=== PATIENT | male | born 2000 | race Caucasian/White ===

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

== ENCOUNTER 2019-02-10 07:33 | Emergency (ER) | payer OTHER ==
[~2019-02-10] VITALS: Ht 180.3 cm; Wt 100.0 kg
[~2019-02-10 07:33] MED LIST changes: +SERT-155; -SERT50TA29
--- NOTE | 2019-02-10 09:07 | REP ---
Skull series: Five views. History: Trauma. Findings: Five views of the calvarium demonstrate an intact bony calvarium. No skull fractures seen. No facial fractures noted. Impression: Negative radiographs of the calvarium.. Electronically Signed by Shmuel Xie MD 02/10/2019 08:59 A
[2019-02-10 09:26] VITALS: BP 122/71
[2019-02-10] MEDS ORDERED: PENICILLIN V POTASSIUM 500 MG TAB PO ONE (09:30)
[2019-02-10] MEDS ORDERED: ACETAMINOPHEN 325 MG TAB PO ONE (09:30)
[2019-02-10] MEDS ORDERED: PENI500T PO (09:32)
--- NOTE | 2019-02-10 11:43 | REP ---
Limited C-spine series: History: Fall into, but well sleep walking. Findings: AP lateral and open mouth odontoid views are presented. Alignment is normal. Vertebral body heights preserved. Prevertebral soft tissues are not widened. Disc spaces are maintained. No fracture or subluxation is seen. CT scanning is more sensitive to fracture and is the imaging modality of choice for trauma in the adult. Impression: Negative limited C-spine radiographs. Electronically Signed by Shmuel Xie MD 02/10/2019 08:35 A
== END 2019-02-10 09:39 | disposition home or self-care (01) ==
LOC: M ED 07:33
DX: S13.4XXA Sprain of ligaments of cervical spine, initial encounter (principal); S00.83XA Contusion of other part of head, initial encounter; W18.39XA Other fall on same level, initial encounter; Y92.018 Other place in single-family (private) house as the place of occurrence of the external cause; J02.0 Streptococcal pharyngitis; F84.0 Autistic disorder; F90.9 Attention-deficit hyperactivity disorder, unspecified type; Z79.899 Other long term (current) drug therapy

== ENCOUNTER 2019-07-14 09:24 | Emergency (ER) | payer OTHER ==
[~2019-07-14] VITALS: Ht 180.3 cm; Wt 110.1 kg
[~2019-07-14 09:24] MED LIST changes: +PENI500T PO; -SERT-155; +SERT50TA29
[2019-07-14] MEDS ORDERED: FLOV100A3 (09:31)
[2019-07-14] MEDS ORDERED: SERT50TA29 (09:31)
[2019-07-14] MEDS ORDERED: AMOX875T (09:31)
[2019-07-14 10:56] LABS: INFLUENZA A AMPLIFICATION POSITIVE (NEGATIVE); INFLUENZA B AMPLIFICATION NEGATIVE (NEGATIVE)
[2019-07-14] MEDS ORDERED: BENZ200C70 PO (11:08)
[2019-07-14] MEDS ORDERED: ONDA4TAB6 PO (11:08)
[2019-07-14 11:14] VITALS: BP 134/85
== END 2019-07-14 11:20 | disposition home or self-care (01) ==
LOC: M ED 09:24
DX: J10.1 Influenza due to other identified influenza virus with other respiratory manifestations (principal); Z79.899 Other long term (current) drug therapy

== ENCOUNTER → 2020-04-15 | Outpatient (CLI) | payer MEDICAID ==
[~2020-04-15] MED LIST changes: +AMOX875T; +BENZ200C70 PO; +FLOV100A3; +METHACHOLINE KIT (J7674) INH ONE; +ONDA4TAB6 PO
--- NOTE | 2020-04-15 12:35 | PFTRPT ---
Height: 71.00 Inches Weight: 254.00 Lbs BSA: 2.33 Diagnosis: R06.02 DATE: 04/15/2020 ORDERED BY: Mary Ellen Pal NP QUALITY: Study of excellent technical quality. PROCEDURE: Under protocol, methacholine was administered. At a dose of 0.25 mg or 1.375 CDUs, a 24% decline in FEV1 was noted. PC of 0.13 is significant. Flow rates did return to baseline post bronchodilator administration. IMPRESSION: Positive methacholine challenge study. MTDD
== END ==
LOC: M CARPUL 11:50
PROVIDERS: ATTEND Nurse Practitioner Adult Health
DX: R06.02 Shortness of breath (principal)
CPT/HCPCS: 94070; 95070; J7674

== ENCOUNTER 2020-06-17 15:01 | Emergency (ER) | payer MEDICARE, MEDICAID ==
[~2020-06-17] VITALS: Ht 180.3 cm; Wt 123.5 kg
[~2020-06-17 15:01] MED LIST changes: -METHACHOLINE KIT (J7674) INH ONE
--- OUTSIDE RECORDS SUMMARY | 2020-06-17 15:16 | CCD | Continuity of Care Document ---
Author Author Giovanny RLAPH [facility] Organization Unknown Address [address] [place] [address] Phone [phone] Care Team Providers Care Director Human Services Name Role Phone Igor Stuart M.D. AUTM [phone] [facility] Gastroenterology AUTM [phone] Ortiz Hurtado AUTM [phone] [facility] Physical Therapy AUTM [phone] Vikram Weldon MD AUTM [phone] [facility] Surgical Center AUTM [phone] [facility] Pulmonary Clinic AUTM [phone] [facility] Therapy Services AUTM [phone] Problems Active Problems Provider Date Attention deficit hyperactivity disorder, combined type Felecia Varela [facility] Onset: 09/14/2016 Autistic disorder Felecia Varela [facility] Onset: 09/14/2016 Altered mental status Felecia Varela [facility] Onset: 09/14/2016 Moderate recurrent major depression Bala Naylor PA-C Onse t: 10/18/2016 Recurrent major depressive episodes Brent Sewell LCSW Ons et: 08/27/2019 Social History Type Date Description Comments Sex Unknown Tobacco Use Start: Unknown Never Smoked Cigarettes Tobacco Use Start: Unknown Never Smoked Cigars Tobacco Use Start: Unknown Never Smoked A Pipe Tobacco Use Start: Unknown Never Used Smokeless Tobacco ETOH Use Never used alcohol Tobacco Use Start: Unknown Patient has never smoked Allergies, Adverse Reactions, Alerts Active Allergies Reaction Severity Comments Date NKDA 10/17/2016 NKFA 10/17/2016 Seasonal 2017 Eggs Nausea when eaten as an egg 019 Inactive Allergies NKEA 10/17/2016 Medications Active Medications SIG Qnty Indications Ordering Provide r Date Trazodone HCL 100mg Tablets 1 tab by mouth daily at bedtime 90tabs F33.1 Igor Stuart MD 04/27/2020 G47.00 Sertraline HCL 100mg Tablets 1 tab by mouth twice a day 90tabs F33.1 Igor Stuart MD 02/02/2020 F33.9 Imodium A-D 2mg Tablets 1 tab by mouth with each loose stool. do not take more then 6 tabs a day. 30tabs R 10.2 Igor Stuart MD 01/21/2020 Cyclobenzaprine HCL 10mg Tablets 1 by mouth three times a day as needed 20tabs M54.9 Igor negro MD 01/10/2019 Naproxen 500mg Tablets one tab twice a daily as needed. 30tabs M54.9 Igor Stuart MD 01/10/2019 Tylenol 325mg Capsules 2 tabs by mouth every 4 hours as needed Unknown 00 Albuterol Sulfate HFA 108(90Base) mcg/Act Aerosol Inhale 1 To 2 Puffs By Mouth Every 4 Hours as Needed For Wheezin g Unknown Metoprolol Succinate ER 25mg Tablets ER 24HR DR Weldon ( he states he is ordered to take twice a day ) Unknown Flovent HFA 110mcg/Act Aerosol Unknown History Medications Tessalon Perles 100mg Capsules 2 capsules by mouth three time per day as needed for cough 30caps Kerri Cortez MD 03/04/2020 - 04/22/2020 Ondansetron 4mg Tablets Dispers dissolve 1 tablet on the tongue up to three times daily as needed for nausea or vomiting 20tabs R11.2 Igor Stuart MD 01/21/2020 - 020 Immunizations CPT Code Status Date Vaccine Lot # [id number] Given 02/02/2020 Influenza (>= 6 Months) P.F. Vaccine [id number] Given 03/27/2019 Influenza (>= 6 Months) P.F. Vaccine [id number] [id number] Given 03/27/2018 Influenza (>= 6 Months) P.F. Vaccine [id number] Vital Signs Date Vital Result Comment 04/22/2020 3:07pm BP Systolic 118 mmHg BP Diastolic 80 mmHg Heart Rate 110 /min Body Temperature 96.4 F Respiratory Rate 16 /min O2 % BldC Oximetry 98 % Weight 261.00 lb Weight 118.390 kg Height 71 inches 5'11" BMI (Body Mass Index) 36.4 kg/m2 BSA (Body Surface Area) 2.36 m2 03/04/2020 1:50pm BP Systolic 118 mmHg BP Diastolic 82 mmHg Heart Rate 103 /min Body Temperature 97.9 F Respiratory Rate 16 /min O2 % BldC Oximetry 96 % Weight 254.25 lb Weight 115.328 kg Height 71 inches 5'11" BMI (Body Mass Index) 35.5 kg/m2 BSA (Body Surface Area) 2.33 m2 Results Test Acquired Date Facility Test Result H/L Range Note Urinalysis 01/21/2020 [facility] Urinalysis (SEE NOTE) 1, 2 Source Clean Catch Color yellow Normal: Yellow Clarity turbid Normal: Clear Spec [place] 1.030 1.001 - 1.030 pH 5 5 - 9 Glucose NORM Normal: Negative Bilirubin NEG Normal: Negative Ketone 5 Abnormal Normal: Negative Protein 15 Normal: Negative Nitrite NEG Normal: Negative Blood NEG Normal: Negative Leuk Est NEG Normal: Negative Urobilinogen NOR less than 1.0 mg/dL Microscopic See Below Epithelial FEW Normal: None Seen Amorph Sed 3+ Normal: None Seen Crystals See Below Calcium Ox Trace Normal: None Seen Cuture Urine 01/21/2020 [facility] Culture Urine (SEE NOTE) 3 CBC W/Automated Diff 01/21/2020 [facility] CBC W/Automated Diff (SEE NOTE) 4 WBC 12.5 10^3/uL High 4.2 - 11.0 RBC 6.45 10^6/uL High 4.50 - 6.30 Hemoglobin 15.9 g/dL 14.0 - 16.0 Hematocrit 50.4 % 41.0 - 51.0 MCV 78.1 fL Low 80.0 - 94.0 MCH 24.7 pg Low 27.0 - 34.0 MCHC 31.5 g/dL 31.0 - 36.0 RDW 13.3 % 11.5 - 14.8 Platelets 349 10^3/uL 150 - 450 MPV 10.6 fL High 7.4 - 10.4 Neut 59.8 % 37.0 - 80.0 Lymph 31.0 % 25.0 - 40.0 [place] 6.2 % 3.0 - 8.0 Eos 2.2 % 0.0 - 7.0 Baso 0.4 % 0.0 - 2.0 %Ig 0.4 % High 0.0 - 0.0 %NRBC 0.0 % 0.0 - 0.0 #Neut 7.49 10^3/uL High 2.00 - 6.90 #Lymph 3.88 10^3/uL High 0.60 - 3.40 #[place] 0.78 10^3/uL 0.00 - 0.90 #Eos 0.28 10^3/uL 0.00 - 0.70 #Baso 0.05 10^3/uL 0.00 - 0.20 #Ig 0.05 10^3/uL 0.00 - 0.10 #NRBC 0.00 10^3/uL 0.00 - 0.00 Manual Diff NOT INDICATED RBC Morph NOT INDICATED Comprehensive Metabolic Panel 01/21/2020 [facility] Comprehensive Metabo (SEE NOTE) 5 Sodium 140 mEq/L 134 - 153 Potassium 4.0 mEq/L 3.6 - 5.0 Chloride 100 mEq/L 98 - 107 Co2 26 mEq/L 22 - 30 Glucose 111 mg/dL High 65 - 110 BUN 8 mg/dL 7 - 21 Creatinine 0.9 mg/dL 0.7 - 1.5 BUN/Creat 9 8 - 27 Total Protein 7.8 g/dL 6.3 - 8.2 Albumin 4.5 g/dL 3.9 - 5.0 Globulin 3.3 GM/DL High 2.4 - 3.2 A/G Ratio 1.4 0.8 - 2.0 Calcium 9.9 mg/dL 8.4 - 10.2 Total Bili <0.7 mg/dL 0.2 - 1.3 Alkaline Phos 86 U/L 38 - 126 Sgot/Ast 20 U/L 5 - 40 SGPT/Alt 34 U/L 7 - 56 Anion Gap 14.0 mmol/L 8.0 - 16.0 Age 19 yrs Non-Aa GFR >60 mL/min Afr Amer GFR >60 mL/min 6 Cve Panel 01/21/2020 [facility] Cve Panel (SEE NOTE) 7 Cholesterol 166 mg/dL 131 - 200 Triglycerides 223 mg/dL High 35 - 160 HDL 42 mg/dL 29 - 86 LDL 96 mg/dL 65 - 175 Risk Factor 4.0 3.4 - 4.9 LDL/HDL 2.29 1.00 - 3.55 8 1 Is patient fasting? N {SOUR CE: Clean Catch~NURSE COLLECTED? N {SPECIMEN TYPE: CLEAN CATCH 2 URINALYSIS 3 _CULTURE URINE_ ^$[id number] ^^[id number] $$553997 ^^239279 $$086929 $$731354 $$125198 $$246980 $$000707 $$351665 $$539333 $$398806 $$569316 $$725494 $$491146 $$046484 $$333921 $$896296 $$821729 $$778136 $$720513 $$011775 $$501555 $$633519 $$744673 $$853427 $$338215 ^^538007 $$127397 $$927968 $$404036 -- Continued on next page -- Patient: DEENA Sullivan Order: [id number] Page 2 Culture: CULTURE URINE Status: Final -- Continued on next page -- Patient: DEENA Sullivan Order: [id number] Page 2 Culture: CULTURE URINE Status: Prelim -- Continued on next page -- Patient: DEENA Sullivan Order: [id number] Page 2 Culture: CULTURE URINE Status: Prelim $$[id number] $$[id number] REPORTED DATE/TIME: 01/25/2020 07:05 Culture: CULTURE URINE Status: Final Urine Culture,Comprehensive: P1 No growth in 36 - 48 hours. Previous result entered on 01/24/2020 14:25 ET No growth after 18-24 hours. Previous result entered on 01/24/2020 05:40 ET No growth after 18-24 hours. P1 Test performed by: [facility] #: [id number] [address] [place] [address] [id number] [facility] [address] Corn Cooker : Dion Perez MD NPI #: Colored Liquid Plastic Applier : 01/24/20.0651.XMT.SENT REF 01/24/20.2303.XMT.SENT REF 01/25/20.0853.XMT.SENT REF 4 COMPLETE BLOOD COUNT 5 COMPREHENSIVE METABOLIC PANE L 6 Male GFR Interprentation 20-49 yrs >60 mL/min Normal 50-59 yrs >56 mL/min Normal 60-69 yrs >49 mL/min Normal 70-79yrs >42 mL/min Normal 80 and above >35 mL/min Normal Female GFR Interpretation 20-39 yrs >60 mL/min Normal 40-49 yrs >58 mL/min Normal 50-59 yrs >51 mL/min Normal 60-69 yrs >45 mL/min Normal 70-79 yrs >39 mL/min Normal 80 and above >32 mL/min Normal 7 LIPID PANEL 8 CVE RISK CHOL/HDL LDL/HDL MEN: 1/2 AVERAGE 3.43 1.00 AVERAGE 4.97 3.55 2X AVERAGE 9.55 6.25 3X AVERAGE 23.99 7.99 WOMEN: 1/2 AVERAGE 3.27 1.47 AVERAGE 4.44 3.22 2X AVERAGE 7.05 5.03 3X AVERAGE 11.04 6.14 Procedures Date Code Description Status 12/08/2019 58790 Brief Emotional/Beha v Assessment W/ Scoring Doc Per Standard Inst Completed Medical Devices Description No Information Available Encounters Description No Information Available Assessments Date Code Description Provider 05/18/2020 F33.9 Major depressive disorder, recur rent, unspecified Franc Ralph, [facility] 04/22/2020 Z00.00 Encounter for genera l adult medical examination without abnormal findings Igor Stuart MD 04/22/2020 M41.9 Scoliosis, unspecified Igor Stuart MD 04/22/2020 M54.9 Dorsalgia, unspecified Igor Stuart MD 04/22/2020 F33.9 Major depressive disorder, recur rent, unspecified Igor Stuart MD 04/22/2020 G47.00 Insomnia, unspecified Igor Stuart MD 04/13/2020 F33.9 Major depressive disorder, recur rent, unspecified Franc Ralph, [facility] 04/13/2020 F84.0 Autistic disorder Franc Ralph, [facility] 03/04/2020 J20.9 Acute bronchitis, unspecified An cy MD Dana 02/11/2020 F33.9 Major depressive disorder, recur rent, unspecified Franc Ralph, [facility] 02/02/2020 F33.9 Major depressive disorder, recur rent, unspecified Igor Stuart MD 02/02/2020 K58.0 Irritable bowel syndrome with di arrhea Igor Stuart MD 01/21/2020 F33.9 Major depressive disorder, recur rent, unspecified Igor Stuart MD 01/21/2020 F84.0 Autistic disorder Igor negro MD 01/21/2020 R10.2 Pelvic and perineal pain Igor Stuart MD 01/21/2020 R11.2 Nausea with vomiting, unspecifie d Igor Stuart MD 01/06/2020 F33.9 Major depressive disorder, recur rent, unspecified Franc Ralph, [facility] 01/06/2020 F84.0 Autistic disorder Franc Ralph [facility] 12/08/2019 J45.909 Unspecified asthma, uncomplicate d Igor Stuart MD 12/08/2019 J30.9 Allergic rhinitis, unspecified H anibal Stuart MD 12/08/2019 F33.9 Major depressive disorder, recur rent, unspecified Igor Stuart MD 12/01/2019 F33.9 Major depressive disorder, recur rent, unspecified Franc Ralph, [facility] 12/01/2019 F84.0 Autistic disorder Franc Ralph, [facility] 11/18/2019 F33.9 Major depressive disorder, recur rent, unspecified Franc Ralph, [facility] 11/18/2019 F84.0 Autistic disorder VIKAS Mccollum Plan of Treatment Future Appointment(s):* 06/15/2020 3:00 pm - VIKAS Mccollum at [facility] * 08/02/2020 2:00 pm - Igor Stuart MD at [facility] 04/22/2020 - Igor Stuart MD* Z00.00 Encounter for general adult medical examination without abnormal findings* Comments:* Examination performed today was normal. Routine labs were ordered today. * M41.9 Scoliosis, unspecified* Comments:* He was told of scoliosis by . Ordered x-ray of the cervical, thoracic, and lumbar spine. If still the same, we will refer him to physical therapy. * M54.9 Dorsalgia, unspecified* Comments:* Treatment plan as above. * F33.9 Major depressive disorder, recurrent, unspecified* Comments:* Continue current medication. Continue to monitor. * G47.00 Insomnia, unspecified* Comments:* He is on Trazodone 50 mg at bedtime. Continue current therapy. Functional Status Description No Information Available Mental Status Description No Information Available Referrals Refer to Reason for Referral Status Appt Date [facility] Therapy Services 19 y/o male with chronic subhash k pain. Need PT. eval and treat. Sent [address] [place] [address] [phone] [facility] Gastroenterology 19 y/o M with hx of chronic abd pain, diarrhea, and nausea. Pls eval and treat. Patient Notified 06/16/[address] [place] [address] [phone] [facility] Pulmonary Clinic 19 y/o M, he claims he has a sthma managed by scientific editor. He is having worsening difficulty with breathing and asking to be seen by bail agent. Pls eval and treat. Closed 05/19/[address] [facility] [address] [phone]
--- OUTSIDE RECORDS SUMMARY | 2020-06-17 15:16 | CCD | Continuity of Care Document ---
Author Author Giovanny URENA DPM Organization Unknown Address [address] [place] [address] Phone [phone] Care Team Providers Care In School Suspension Coordinator Name Role Phone Igor Stuart M.D. AUTM [phone] [facility] Gastroenterology AUTM [phone] Ortiz Hurtado AUTM [phone] [facility] Physical Therapy AUTM [phone] Vikram Weldon MD AUTM [phone] [facility] AUTM [phone] [facility] Pulmonary Clinic AUTM [phone] [facility] Therapy Services AUTM [phone] [facility] Podiatry Clinic AUTM [phone] Problems Active Problems Provider Date Attention deficit hyperactivity disorder, combined type Felecia Varela [facility] Onset: 09/14/2016 Autistic disorder Felecia Varela [facility] Onset: 09/14/2016 Altered mental status Felecia Varela [facility] Onset: 09/14/2016 Moderate recurrent major depression LILLI Abebee t: 10/18/2016 Recurrent major depressive episodes Brent [...] Hours as Needed For Wheezin g Unknown Breo Ellipta 200-25mcg/Inh Aerosol Inhale 1 puff By Mouth Every Day Unknown History Medications Atenolol 25mg Tablets 1 by mouth every day 90tabs Igor Stuart MD 05/31/2020 - 05/31/2020 Tessalon Perles 100mg Capsules 2 capsules by mouth three time per day as needed for cough 30caps Kerri Cortez MD 03/04/2020 - 04/22/2020 Ondansetron 4mg Tablets Dispers dissolve 1 tablet on the tongue up to three times daily as needed for nausea or vomiting 20tabs R11.2 Igor Stuart MD 01/21/2020 - 020 Immunizations CPT Code Status Date Vaccine Lot # 58753 Given 02/02/2020 Influenza (>= 6 Months) P.F. Vaccine [id number] [id number] Given 03/27/2019 Influenza (>= 6 Months) P.F. Vaccine 25EG2 01965 Given 03/27/2018 Influenza (>= 6 Months) P.F. Vaccine [id number] Vital Signs Date Vital Result Comment 06/07/2020 1:14pm BP Systolic 136 mmHg BP Diastolic 81 mmHg Heart Rate 102 /min Body Temperature 97.8 F Respiratory Rate 16 /min O2 % BldC Oximetry 98 % Weight 260.00 lb Weight 117.936 kg Height 71 inches 5'11" BMI (Body Mass Index) 36.3 kg/m2 BSA (Body Surface Area) 2.36 m2 05/31/2020 1:04pm BP Systolic 138 mmHg didn't take h is B/P meds BP Diastolic 88 mmHg didn't take his B/P meds Heart Rate 104 /min Body Temperature 97.4 F Respiratory Rate 18 /min O2 % BldC Oximetry 97 % Weight 260.00 lb Weight 117.936 kg Height 71 inches 5'11" BMI (Body Mass Index) 36.3 kg/m2 BSA (Body Surface Area) 2.36 m2 Results Test Acquired Date Facility Test Result H/L Range Note Urinalysis 01/21/2020 [facility] Urinalysis (SEE NOTE) 1, 2 Source Clean Catch Color yellow Normal: Yellow Clarity turbid Normal: Clear Spec [place] 1.030 1.001 - 1.030 pH 5 5 [...] Trace Normal: None Seen Cuture Urine 01/21/2020 [facility] Culture Urine (SEE NOTE) 3 CBC W/Automated Diff 01/21/2020 [facility] CBC W/Automated Diff (SEE NOTE) 4 WBC [...] 80.0 Lymph 31.0 % 25.0 - 40.0 [place] 6.2 % 3.0 - 8.0 Eos 2.2 % 0.0 - 7.0 Baso 0.4 % 0.0 - 2.0 %Ig 0.4 % High 0.0 - 0.0 %NRBC 0.0 % 0.0 - 0.0 #Neut 7.49 10^3/uL High 2.00 - 6.90 #Lymph 3.88 10^3/uL High 0.60 - 3.40 #[place] 0.78 10^3/uL 0.00 - 0.90 #Eos 0.28 10^3/uL 0.00 - 0.70 #Baso 0.05 10^3/uL 0.00 - 0.20 #Ig 0.05 10^3/uL 0.00 - 0.10 #NRBC 0.00 10^3/uL 0.00 - 0.00 Manual Diff NOT INDICATED RBC Morph NOT INDICATED Comprehensive Metabolic Panel 01/21/2020 [facility] Comprehensive Metabo (SEE NOTE) 5 Sodium 140 [...] GFR >60 mL/min 6 Cve Panel 01/21/2020 [facility] Cve Panel (SEE NOTE) 7 Cholesterol 166 mg/dL 131 - 200 Triglycerides 223 mg/dL High 35 - 160 HDL 42 mg/dL 29 - 86 LDL 96 mg/dL 65 - 175 Risk Factor 4.0 3.4 - 4.9 LDL/HDL 2.29 1.00 - 3.55 8 1 Is patient fasting? N {SOUR CE: Clean Catch~NURSE COLLECTED? N {SPECIMEN TYPE: CLEAN CATCH 2 URINALYSIS 3 _CULTURE URINE_ ^$744781 ^^598005 $$182544 ^^345542 $$871144 $$731246 $$934492 $$912501 $$079999 $$409989 $$342968 $$682939 $$590585 $$238139 $$856744 $$406634 $$595007 $$216777 $$085760 $$234779 $$033763 $$456738 $$668049 $$873621 $$630434 $$819528 $$725791 ^^996834 $$508880 $$459587 $$757517 -- Continued on next page -- Patient: DEENA Sullivan Order: [id number] Page 2 Culture: CULTURE URINE Status: Final -- Continued on next page -- Patient: DEENA Sullivan Order: [id number] Page 2 Culture: CULTURE URINE Status: Prelim -- Continued on next page -- Patient: DEENA Sullivan Order: [id number] Page 2 Culture: CULTURE URINE Status: Prelim $$[id number] $$[id number] REPORTED DATE/TIME: 01/25/2020 07:05 Culture: CULTURE URINE Status: Final Urine Culture,Comprehensive: P1 No growth in 36 - 48 hours. Previous result entered on 01/24/2020 14:25 ET No growth after 18-24 hours. Previous result entered on 01/24/2020 05:40 ET No growth after 18-24 hours. P1 Test performed by: [facility] #: [id number] [address] [place] [id number] [facility] [address] Head Of Business Development : Dion Perez MD NPI #: [employer]unnel Kiln : 01/24/20.0651.XMT.SENT REF 01/24/20.2303.XMT.SENT REF 01/25/20.0853.XMT.SENT REF [...] 11.04 6.14 Procedures Date Code Description Status 06/14/2020 31935 Debridement Nails Any Method 1-5 Completed Medical Devices Description No Information Available Encounters Type Date Location Provider Dx Diagnosis Office Visit 06/14/2020 2:30p [facility] Devin Urena DPM L60.0 Ingrowing nail Assessments Date Code Description Provider 06/14/2020 L60.0 Ingrowing nail Devin Urena DPM 05/31/2020 I10 Essential (primary) hypertension Igor Stuart MD 05/31/2020 L60.0 Ingrowing nail Igor Stuatr MD 05/18/2020 F33.9 Major depressive disorder, recur rent, unspecified Franc Paul [facility] 04/22/2020 Z00.00 Encounter for genera l adult medical examination without abnormal findings Igor Stuart MD 04/22/2020 M41.9 Scoliosis, unspecified Igor Stuart MD 04/22/2020 M54.9 Dorsalgia, charlotteified Igor Stuart MD 04/22/2020 F33.9 Major depressive disorder, recur rent, unspecified Igor Stuart MD 04/22/2020 G47.00 Insomnia, unspecified Igor Stuart MD 04/13/2020 F33.9 Major depressive disorder, recur rent, unspecified Franc Paul [facility] 04/13/2020 F84.0 Autistic disorder Franc Paul [facility] 03/04/2020 J20.9 Acute bronchitis, unspecified An cy MD Dana 02/11/2020 F33.9 Major depressive disorder, recur rent, unspecified Franc Paul [facility] 02/02/2020 F33.9 Major depressive disorder, recur rent, [...] Major depressive disorder, recur rent, unspecified Franc Paul LM 01/06/2020 F84.0 Autistic disorder VIKAS Mccollum Plan of Treatment Future Appointment(s):* 06/15/2020 3:00 pm - VIKAS Mccollum at [facility] * 08/02/2020 2:00 pm - Igor Stuart MD at [facility] 06/14/2020 - Devin Urena DPM* L60.0 Ingrowing nail Functional Status Description No Information Available Mental Status Description No Information Available Referrals Refer to Reason for Referral Status Appt Date [facility] Podiatry Clinic 19 y/o M with hx of bilatera l ingrown toenails, pls eval and treat. Patient Notified 06/08/2020 3 [facility], [id number] [phone] [facility] Therapy Services 19 y/o male with chronic subhash k pain. Need PT. eval and treat. Sent [address] [place], [place] [id number] [phone] [facility] Gastroenterology 19 y/o M with hx of chronic abd pain, diarrhea, and nausea. Pls eval and treat. Patient Notified 06/16/2020 [address] [place] [address] [phone]
--- OUTSIDE RECORDS SUMMARY | 2020-06-17 15:16 | CCD ---
Continuity of Care Document (CCD) Created on: 05/31/2020 Giovanny Guardado External Reference #: [id number] : 2000 Sex: Male Author Author Giovanny STUART M.D. Organization Unknown Address [address] [place] [address] Phone [phone] Care Team Providers Care Charge Loader Name Role Phone Igor Stuart M.D. AUTM [phone] [facility] Gastroenterology AUTM [phone] Ortiz Hurtado AUTM [phone] [facility] Physical Therapy AUTM [phone] Vikram Weldon MD AUTM [phone] [facility] Surgical Center AUTM [phone] [facility] Pulmonary Clinic AUTM [phone] [facility] Therapy Services AUTM [phone] Problems Active Problems Provider Date Attention deficit hyperactivity disorder, combined type Felecia Varela [facility] Onset: 09/14/2016 Autistic disorder Felecia Varela [facility] Onset: 09/14/2016 Altered mental status Felecia Varela [facility] Onset: 09/14/2016 Moderate recurrent major depression Bala [...] CPT Code Status Date Vaccine Lot # 34055 Given 02/02/2020 Influenza (>= 6 Months) P.F. Vaccine [id number] Given 03/27/2019 Influenza (>= 6 Months) P.F. Vaccine [id number] [id number] Given 03/27/2018 Influenza (>= 6 Months) P.F. Vaccine [id number] Vital Signs Date Vital Result Comment 05/31/2020 1:04pm BP Systolic 138 mmHg didn't take h is B/P meds BP Diastolic 88 mmHg didn't take his B/P meds Heart Rate 104 /min Body Temperature 97.4 F Respiratory Rate 18 /min O2 % BldC Oximetry 97 % Weight 260.00 lb Weight 117.936 kg Height 71 inches 5'11" BMI (Body Mass Index) 36.3 kg/m2 BSA (Body Surface Area) 2.36 m2 04/22/2020 3:07pm BP Systolic 118 mmHg BP Diastolic 80 mmHg Heart Rate 110 /min Body Temperature 96.4 F Respiratory Rate 16 /min O2 % BldC Oximetry 98 % Weight 261.00 lb Weight 118.390 kg Height 71 inches 5'11" BMI (Body Mass Index) 36.4 kg/m2 BSA (Body Surface Area) 2.36 m2 Results Test Acquired Date Facility Test Result H/L Range Note Urinalysis 01/21/2020 [facility] Urinalysis (SEE NOTE) 1, 2 Source Clean Catch Color yellow Normal: Yellow Clarity turbid Normal: Clear Spec [place] 1.030 1.001 - 1.030 pH 5 5 [...] Trace Normal: None Seen Cuture Urine 01/21/2020 [facility] Culture Urine (SEE NOTE) 3 CBC W/Automated Diff 01/21/2020 [facility] CBC W/Automated Diff (SEE NOTE) 4 [...] 80.0 Lymph 31.0 % 25.0 - 40.0 [place] 6.2 % 3.0 - 8.0 Eos 2.2 % 0.0 - 7.0 Baso 0.4 % 0.0 - 2.0 %Ig 0.4 % High 0.0 - 0.0 %NRBC 0.0 % 0.0 - 0.0 #Neut 7.49 10^3/uL High 2.00 - 6.90 #Lymph 3.88 10^3/uL High 0.60 - 3.40 #[place] 0.78 10^3/uL 0.00 - 0.90 #Eos 0.28 10^3/uL 0.00 - 0.70 #Baso 0.05 10^3/uL 0.00 - 0.20 #Ig 0.05 10^3/uL 0.00 - 0.10 #NRBC 0.00 10^3/uL 0.00 - 0.00 Manual Diff NOT INDICATED RBC Morph NOT INDICATED Comprehensive Metabolic Panel 01/21/2020 [facility] Comprehensive Metabo (SEE NOTE) 5 [...] GFR >60 mL/min 6 Cve Panel 01/21/2020 [facility] Cve Panel (SEE NOTE) 7 Cholesterol 166 mg/dL 131 - 200 Triglycerides 223 mg/dL High 35 - 160 HDL 42 mg/dL 29 - 86 LDL 96 mg/dL 65 - 175 Risk Factor 4.0 3.4 - 4.9 LDL/HDL 2.29 1.00 - 3.55 8 1 Is patient fasting? N {SOUR CE: Clean Catch~NURSE COLLECTED? N {SPECIMEN TYPE: CLEAN CATCH 2 URINALYSIS 3 _CULTURE URINE_ ^$047781 ^^899139 $$764650 ^^896994 $$161956 $$047740 $$912980 $$149811 $$256406 $$220145 $$197569 $$783532 $$488522 $$153008 $$350821 $$354630 $$997418 $$316699 $$295088 $$105090 $$648350 $$789072 $$982792 $$852610 $$158315 $$557740 $$697037 ^^418107 $$619276 $$694600 $$907255 -- Continued on next page -- Patient: DEENA Sullivan Order: [id number] Page 2 Culture: CULTURE URINE Status: Final -- Continued on next page -- Patient: DEENA Sullivan Order: [id number] Page 2 Culture: CULTURE URINE Status: Prelim -- Continued on next page -- Patient: DEENA Sullivan Order: [id number] Page 2 Culture: CULTURE URINE Status: Prelim $$[id number] $$600760 REPORTED DATE/TIME: 01/25/2020 07:05 Culture: CULTURE URINE Status: Final Urine Culture,Comprehensive: P1 No growth in 36 - 48 hours. Previous result entered on 01/24/2020 14:25 ET No growth after 18-24 hours. Previous result entered on 01/24/2020 05:40 ET No growth after 18-24 hours. P1 Test performed by: [facility] #: [id number] [address] [place] [id number] [facility] [id number] Powder Guard : Dion Perez MD NPI #: Occupational Work Experience Teacher : 01/24/20.0651.XMT.SENT REF 01/24/20.2303.XMT.SENT REF 01/25/20.0853.XMT.SENT REF [...] 6.14 Procedures Date Code Description Status 12/08/2019 13407 Brief Emotional/Beha v Assessment W/ Scoring Doc Per Standard Inst Completed Medical Devices Description No Information Available Encounters Type Date Location Provider Dx Diagnosis Office Visit 05/31/2020 1:00p [facility] Igor Stuart MD I1 0 Essential (primary) hypertension L60.0 Ingrowing nail Assessments Date Code Description Provider 05/31/2020 I10 Essential (primary) hypertension Igor Stuart MD 05/31/2020 L60.0 Ingrowing nail Igor Stuart MD 05/18/2020 F33.9 Major depressive disorder, recur rent, unspecified Franc Paul [facility] 04/22/2020 Z00.00 Encounter for genera l adult medical examination without abnormal findings Igor Stuart MD 04/22/2020 M41.9 Scoliosis, unspecified Igor Stuart MD 04/22/2020 M54.9 Dorsalgia, charlotteified Igor Stuart MD 04/22/2020 F33.9 Major depressive disorder, recur rent, unspecified Igor Stuart MD 04/22/2020 G47.00 Insomnia, unspecified Igor Stuart MD 04/13/2020 F33.9 Major depressive disorder, recur rent, unspecified Franc Paul, [facility] 04/13/2020 F84.0 Autistic disorder Franc Paul [facility] 03/04/2020 J20.9 Acute bronchitis, unspecified An cy MD [place] 02/11/2020 F33.9 Major depressive disorder, recur rent, unspecified Franc Paul, [facility] 02/02/2020 F33.9 Major depressive disorder, recur [...] Major depressive disorder, recur rent, unspecified Franc Paul, [facility] 01/06/2020 F84.0 Autistic disorder Franc Paul [facility] 12/08/2019 J45.909 Unspecified asthma, uncomplicate d Igor Stuart MD 12/08/2019 J30.9 Allergic rhinitis, unspecified H ardik Christina Stuart MD 12/08/2019 F33.9 Major depressive disorder, recur rent, unspecified Igor Stuart MD 12/01/2019 F33.9 Major depressive disorder, recur rent, unspecified Franc Paul [facility] 12/01/2019 F84.0 Autistic disorder Franc Paul [facility] Plan of Treatment Future Appointment(s):* 06/07/2020 1:20 pm - Igor Stuart MD at [facility] * 06/15/2020 3:00 pm - VIKAS Mccollum at [facility] * 08/02/2020 2:00 pm - Igor Stuart MD at [facility] 05/31/2020 - Igor Stuart MD* I10 Essential (primary) hypertension * L60.0 Ingrowing nail * All * New Medication:* Atenolol 25 mg - 1 by mouth every day Functional Status Description No Information Available Mental Status Description No Information Available Referrals Refer to Reason for Referral Status Appt Date [facility] 19 y/o male with chronic subhash k pain. Need PT. eval and treat. Sent [address] [place] [address] [phone] [facility] Gastroenterology 19 y/o M with hx of chronic abd pain, diarrhea, and nausea. Pls eval and treat. Patient Notified 06/16/2020 [address] [place] [address] [phone] [facility] Pulmonary Clinic 19 y/o M, he claims he has a sthma managed by sack repairer. He is having worsening difficulty with breathing and asking to be seen by metal template maker. Pls eval and treat. Closed 05/19/[address] [facility] [address] [phone]
--- OUTSIDE RECORDS SUMMARY | 2020-06-17 15:16 | CCD | Continuity of Care Document ---
Author Author Giovanny RAMSAY ANP Organization Unknown Address [address] [address] Phone [phone] Care Team Providers Care Therapist Respiratory Name Role Phone Igor Stuart M.D. [facility] [phone] Problems Active Problems Provider Date Wheezing MARGI Casey Onset: 03/25/2020 Cough MARGI Casey Onset: 03/25/2020 Dyspnea MARGI Casey Onset: 03/25/2020 Social History Type Date Description Comments Sex Unknown ETOH Use Denies alcohol use Tobacco Use Start: Unknown Non Smoker Allergies, Adverse Reactions, Alerts Description No Known Drug Allergies Medications Active Medications SIG Qnty Indications Ordering Provide r Date Sertraline HCL 100mg Tablets 1 by mouth daily Unknown Trazodone HCL 50mg Tablets 1 by mouth daily Unknown Flovent HFA 44mcg/Act Aerosol 2 puff twice a day Unknown Albuterol Sulfate HFA 108(90Base) mcg/Act Aerosol inhale two puffs by mouth four times a day as needed Unknown Naproxen 500mg Tablets 1 tab by mouth every day Unknown Metoprolol Tartrate 25mg Tablets 1 tab by mouth twice a day (taking once daily) Unknown Immunizations Description No Information Available Vital Signs Date Vital Result Comment 03/25/2020 9:56am BP Systolic 122 mmHg BP Diastolic 80 mmHg Heart Rate 83 /min O2 % BldC Oximetry 95 % Height 71 inches 5'11" Weight 253.00 lb BMI (Body Mass Index) 35.3 kg/m2 [place] Body Weight 172 lb Weight 114.761 kg BSA (Body Surface Area) 2.33 m2 03/22/2011 10:49am BP Systolic 98 mmHg BP Diastolic 70 mmHg Weight 101.00 lb Weight 45.814 kg Weight Percentile 82nd Results Description No Information Available Procedures Date Code Description Status 04/05/2020 21587 Diffusing Capacity Completed 04/05/2020 81693 Plethysmography Determination Margo ng Volumes & Per Airway Resist Completed 04/05/2020 55296 Maximum Breathing Capacity, Maxi mal Voluntary Ventilation Completed 04/05/2020 64550 Bronchospasm Evaluation Complete d 03/25/2020 07679 Spirometry Completed Medical Devices Description No Information Available Encounters Type Date Location Provider Dx Diagnosis Office Visit 03/25/2020 10:00a [facility] Pulmonary/Thoracic MARGI Hanley R06.02 Shortness of breath R05 Cough R06.2 Wheezing Assessments Date Code Description Provider 04/05/2020 R06.02 Shortness of breath Pulmonary La b 03/25/2020 R06.02 Shortness of breath MARGI Casey 03/25/2020 R05 Cough MARGI Casey 03/25/2020 R06.2 Wheezing MARGI Casey Plan of Treatment 03/25/2020 - MARGI Casey* R06.02 Shortness of breath * R05 Cough * R06.2 Wheezing * * Comments:* 1. Secondary to shortness of breath, cough, wheeze, we will obtain full pulmonary function studies, a chest x-ray, and a methacholine bronchoprovocation study. * Follow up:* 1. Schedule pulmonary function testing with bronchodilator. 2. Schedule methacholine on a separate day and proceed if pulmonary function testing is normal. 3. Return to see me/doctor in follow up with pulmonary function testing,CXR, and methacholine challenge. Functional Status Description No Information Available Mental Status Description No Information Available Referrals Description No Information Available
--- OUTSIDE RECORDS SUMMARY | 2020-06-17 15:17 | CCD | Continuity of Care Document ---
Author Author Pulmonary Lab, Giovanny Nate Organization Unknown Address [address] [place] [address] Phone [phone] Care Team Providers Care Ladle Patcher Name Role Phone Igor Stuart M.D. [facility] [phone] Problems Active Problems Provider Date Wheezing Mary Ellen Kae, ANP Onset: 03/25/2020 Cough Mary Ellen Kae, ANP Onset: 03/25/2020 Dyspnea Mary Ellen Kae, ANP Onset: 03/25/2020 Social History Type Date Description [...] lb BMI (Body Mass Index) 35.3 kg/m2 [place] Body Weight 172 lb Weight 114.761 kg BSA (Body Surface Area) 2.33 m2 03/22/2011 10:49am BP Systolic 98 mmHg BP Diastolic 70 mmHg Weight 101.00 lb Weight 45.814 kg Weight Percentile 82nd Results Description No Information Available Procedures Date Code Description Status 03/25/2020 33875 Spirometry Completed Medical Devices Description No Information Available Encounters Type Date Location Provider Dx Diagnosis Office Visit 03/25/2020 10:00a [facility] Pulmonary/Thoracic MARGI Hanley R06.02 Shortness of breath R05 Cough R06.2 Wheezing Assessments Date Code Description Provider 03/25/2020 R06.02 Shortness of breath MARGI Casey 03/25/2020 R05 Cough MARGI Casey 03/25/2020 R06.2 Wheezing MARGI Casey Plan of Treatment Future Appointment(s):* 04/14/2020 11:30 am - MARGI Casey at [facility] Pulmonary/Thoracic * 04/06/2020 1:00 pm - [facility] Pulmonary Lab at [facility] PulmonaryThoracic 03/25/2020 - MARGI Casey* R06.02 Shortness of breath * R05 Cough * R06.2 Wheezing * * New Labs:* Methacholine Study, Scheduled: 04/06/20 * New Xrays:* Chest, 2 Views, PA & Lat, Ordered: 03/25/20 * Comments:* 1. Secondary to shortness of [...]
--- OUTSIDE RECORDS SUMMARY | 2020-06-17 15:17 | CCD | Continuity of Care Document ---
Author Author Giovanny STUART M.D. Organization Unknown Address [address] [place] [address] Phone [phone] Care Team Providers Care Quality Measurement Specialist Name Role Phone Igor Stuart M.D. AUTM [phone] [facility] Gastroenterology AUTM [phone] Ortiz Hurtado AUTM [phone] [facility] Physical Therapy AUTM [phone] Vikram Weldon MD AUTM [phone] [facility] Surgical Center AUTM [phone] [facility] Pulmonary Clinic AUTM [phone] Problems Active Problems Provider Date Attention deficit hyperactivity disorder, combined type Felecia Varela [facility] Onset: 09/14/2016 Autistic disorder Felecia Varela [facility] Onset: 09/14/2016 Altered mental status Felecia Varela [facility] Onset: 09/14/2016 Moderate recurrent major depression Bala Naylor PA-C Onse t: 10/18/2016 Recurrent major depressive episodes ROCIO SaraviaW Ons et: 08/27/2019 Social History Type Date [...] r Date Sertraline HCL 100mg Tablets 1 tab by [...] needed. 30tabs M54.9 Igor Stuart MD 01/10/2019 Trazodone HCL 50mg Tablets 1 tab by mouth daily at bedtime 90tabs F33.1 Igor Stuart MD 01/19/2017 G47.00 Tylenol 325mg Capsules 2 tabs by mouth [...] CPT Code Status Date Vaccine Lot # 25605 Given 02/02/2020 Influenza (>= 6 Months) P.F. Vaccine 9HT27 84970 Given 03/27/2019 Influenza (>= 6 Months) P.F. Vaccine 25EG2 45227 Given 03/27/2018 Influenza (>= 6 Months) P.F. [...] Date Facility Test Result H/L Range Note Xray 04/22/2020 [facility] [address] [place] [address] [phone] Spine Cerv Comp-5 Or More View <pending> Spine LS Complete <pending> Spine Thoracic <pending> Spine Scoliosis 1 View <pending> Urinalysis 01/21/2020 [facility] Urinalysis (SEE NOTE) 1, 2 Source Clean Catch Color yellow Normal: Yellow Clarity turbid Normal: Clear Spec [place] 1.030 1.001 - 1.030 pH 5 5 [...] Trace Normal: None Seen Cuture Urine 01/21/2020 [facility] Culture Urine (SEE NOTE) 3 CBC W/Automated Diff 01/21/2020 [facility] CBC W/Automated Diff (SEE NOTE) 4 WBC [...] 80.0 Lymph 31.0 % 25.0 - 40.0 [place] 6.2 % 3.0 - 8.0 Eos 2.2 % 0.0 - 7.0 Baso 0.4 % 0.0 - 2.0 %Ig 0.4 % High 0.0 - 0.0 %NRBC 0.0 % 0.0 - 0.0 #Neut 7.49 10^3/uL High 2.00 - 6.90 #Lymph 3.88 10^3/uL High 0.60 - 3.40 #[place] 0.78 10^3/uL 0.00 - 0.90 #Eos 0.28 10^3/uL 0.00 - 0.70 #Baso 0.05 10^3/uL 0.00 - 0.20 #Ig 0.05 10^3/uL 0.00 - 0.10 #NRBC 0.00 10^3/uL 0.00 - 0.00 Manual Diff NOT INDICATED RBC Morph NOT INDICATED Comprehensive Metabolic Panel 01/21/2020 [facility] Comprehensive Metabo (SEE NOTE) 5 Sodium [...] GFR >60 mL/min 6 Cve Panel 01/21/2020 [facility] Cve Panel (SEE NOTE) 7 Cholesterol 166 mg/dL 131 - 200 Triglycerides 223 mg/dL High 35 - 160 HDL 42 mg/dL 29 - 86 LDL 96 mg/dL 65 - 175 Risk Factor 4.0 3.4 - 4.9 LDL/HDL 2.29 1.00 - 3.55 8 [employer] [facility] 13 11/04/2019 [facility] eleazar Summary Report (Summary) FINAL PDF . 1 Is patient fasting? N {SOUR CE: Clean Catch~NURSE COLLECTED? N {SPECIMEN TYPE: CLEAN CATCH 2 URINALYSIS 3 _CULTURE URINE_ ^$202674 ^^475227 $$709316 ^^424672 $$177700 $$614550 $$015005 $$811010 $$761248 $$394925 $$401733 $$066597 $$849433 $$230426 $$514448 $$415840 $$651824 $$586440 $$498115 $$255385 $$401135 $$537212 $$191741 $$107990 $$129369 $$226738 $$559557 ^^469192 $$399618 $$761393 $$664718 -- Continued on next page -- Patient: DEENA Sullivan Order: [id number] Page 2 Culture: CULTURE URINE Status: Final -- Continued on next page -- Patient: DEENA Sullivan Order: [id number] Page 2 Culture: CULTURE URINE Status: Prelim -- Continued on next page -- Patient: DEENA Sullivan Order: [id number] Page 2 Culture: CULTURE URINE Status: Prelim $$[id number] $$986001 REPORTED DATE/TIME: 01/25/2020 07:05 Culture: CULTURE URINE Status: Final Urine Culture,Comprehensive: P1 No growth in 36 - 48 hours. Previous result entered on 01/24/2020 14:25 ET No growth after 18-24 hours. Previous result entered on 01/24/2020 05:40 ET No growth after 18-24 hours. P1 Test performed by: [facility] #: [id number] [address] [place] [address] Avenue [id number] [facility] [address] Plastics Fitter : Dion Perez MD NPI #: Cardiac Care Nurse : 01/24/20.0651.XMT.SENT REF 01/24/20.2303.XMT.SENT REF 01/25/20.0853.XMT.SENT REF [...] AVERAGE 7.05 5.03 3X AVERAGE 11.04 6.14 9 {DIAGNOSIS: F33.9~{MEDICATI ONS/DECLARED: CYCLOBENZAPRINE, NAPROXEN, SERTRALINE,~{PRESCRIPTION I 10 TOXASSURE SELECT 13 (MW) Test Result Flag Units NO DRUGS DETECTED. Test Result Flag Units Ref Range Creatinine 256 mg/dL >=20 Declared Medications: The flagging and interpretation on this report are based on the following declared medications. Unexpected results may arise from inaccuracies in the declared medications. Note: The testing scope of this panel does not include following reported medications: Acetaminophen (Tylenol) Cyclobenzaprine Naproxen Sertraline Trazodone For clinical consultation, please call . Procedures Date Code Description Status 12/08/2019 59509 Brief Emotional/Beha v Assessment W/ Scoring Doc Per Standard Inst Completed Medical Devices Description No Information Available Encounters Description No Information Available Assessments Date Code Description Provider 04/13/2020 F33.9 Major depressive disorder, recur rent, unspecified Franc Paul, [facility] 04/13/2020 F84.0 Autistic disorder Franc Paul [facility] 03/04/2020 J20.9 Acute bronchitis, unspecified An cy MD Dana 02/11/2020 F33.9 Major depressive disorder, recur rent, unspecified Franc Paul [facility] 02/02/2020 F33.9 Major depressive disorder, recur [...] depressive disorder, recur rent, unspecified Franc Paul [facility] 01/06/2020 F84.0 Autistic disorder Franc Paul [facility] 12/08/2019 J45.909 Unspecified asthma, uncomplicate d Igor Stuart MD 12/08/2019 J30.9 Allergic rhinitis, unspecified H ardik Christina Stuart MD 12/08/2019 F33.9 Major depressive disorder, recur rent, unspecified Igor Stuart MD 12/01/2019 F33.9 Major depressive disorder, recur rent, unspecified Franc Beverly, [facility] 12/01/2019 F84.0 Autistic disorder Franckeven Paul, [facility] 11/18/2019 F33.9 Major depressive disorder, recur rent, unspecified Franc Paul, [facility] 11/18/2019 F84.0 Autistic disorder Franc Paul, [facility] 11/05/2019 F33.9 Major depressive disorder, recur rent, unspecified Igor Stuart MD 11/05/2019 F84.0 Autistic disorder Igor negro MD 11/05/2019 I78.1 Nevus, non-neoplastic Igor Stuart MD 11/05/2019 G47.00 Insomnia, unspecified Igor Stuart MD 11/04/2019 F33.9 Major depressive disorder, recur rent, unspecified Franc Paul, [facility] 11/04/2019 F33.9 Major depressive disorder, recur rent, unspecified Mirian Barrientos, RN Plan of Treatment Future Appointment(s):* 05/18/2020 3:00 pm - VIKAS Mccollum at [facility] * 08/02/2020 2:00 pm - Igor Stuart MD at [facility] Functional Status Description No Information Available Mental Status Description No Information Available Referrals Refer to Reason for Referral Status Appt Date [facility] Gastroenterology 19 y/o M with hx of chronic abd pain, diarrhea, and nausea. Pls eval and treat. Sent [address] [place] [address] [phone] [facility] Pulmonary Clinic 19 y/o M, he claims he has a sthma managed by polymer materials consultant. He is having worsening difficulty with breathing and asking to be seen by master steam yacht. Pls eval and treat. Closed 05/19/[address] [place] [address] [id number] [phone] [facility] Surgical Center 18 y/o M with hx of nonneopl astic nevi on his head, referred for excision. Pls eval and treat. Patient Declined [address] [place] [address] [phone]
--- OUTSIDE RECORDS SUMMARY | 2020-06-17 15:17 | CCD | Continuity of Care Document ---
Author Author Giovanny RAMSAY ANP Organization Unknown Address [address] [address] Phone [phone] Care Team Providers Care Shank Boner Name Role Phone Igor Stuart M.D. [facility] [phone] Problems Active Problems Provider Date Wheezing MARGI [...] lb BMI (Body Mass Index) 35.3 kg/m2 [place] Body Weight 172 lb Weight 114.761 kg BSA (Body Surface Area) 2.33 m2 03/22/2011 10:49am BP Systolic 98 mmHg BP Diastolic 70 mmHg Weight 101.00 lb Weight 45.814 kg Weight Percentile 82nd Results Description No Information Available Procedures Date Code Description Status 04/05/2020 78428 Diffusing Capacity Completed 04/05/2020 19912 Plethysmography Determination Margo ng Volumes & Per Airway Resist Completed 04/05/2020 78823 Maximum Breathing Capacity, Maxi mal Voluntary Ventilation Completed 04/05/2020 89384 Bronchospasm Evaluation Complete d 03/25/2020 57972 Spirometry Completed Medical Devices Description No Information Available Encounters Type Date Location Provider Dx Diagnosis Office Visit 03/25/2020 10:00a [facility] Pulmonary/Thoracic Mary Ellen To phillipe ANP R06.02 Shortness of breath R05 Cough R06.2 Wheezing Assessments Date Code Description Provider 04/05/2020 R06.02 Shortness of breath Pulmonary La b 03/25/2020 R06.02 Shortness of breath MARGI Casey 03/25/2020 R05 Cough MARGI Casey 03/25/2020 R06.2 Wheezing MARGI Casey Plan of Treatment 03/25/2020 - MARGI Casey* R06.02 Shortness of breath * R05 Cough * R06.2 Wheezing * * New Xrays:* Chest, 2 Views, PA [...]
--- OUTSIDE RECORDS SUMMARY | 2020-06-17 15:17 | CCD | Continuity of Care Document ---
Author Author Giovanny RAMSAY ANP Organization Unknown Address [address] [address] Phone [phone] Care Team Providers Care Feed Inspection Supervisor Name Role Phone Igor Stuart M.D. [facility] [phone] Problems Active Problems Provider Date Wheezing MARGI [...] lb BMI (Body Mass Index) 35.3 kg/m2 [place] Body Weight 172 lb Weight 114.761 kg BSA (Body Surface Area) 2.33 m2 03/22/2011 10:49am BP Systolic 98 mmHg BP Diastolic 70 mmHg Weight 101.00 lb Weight 45.814 kg Weight Percentile 82nd Results Description No Information Available Procedures Date Code Description Status 04/05/2020 85956 Diffusing Capacity Completed 04/05/2020 47817 Plethysmography Determination Margo ng Volumes & Per Airway Resist Completed 04/05/2020 63253 Maximum Breathing Capacity, Maxi mal Voluntary Ventilation Completed 04/05/2020 01640 Bronchospasm Evaluation Complete d 03/25/2020 51333 Spirometry Completed Medical Devices Description No Information Available Encounters Type Date Location Provider Dx Diagnosis Office Visit 03/25/2020 10:00a [facility] Pulmonary/Thoracic MARGI Hanley R06.02 Shortness of breath R05 Cough R06.2 Wheezing Assessments Date Code Description Provider 04/05/2020 R06.02 Shortness of breath Pulmonary [place] b 03/25/2020 R06.02 Shortness of breath MARGI Casey 03/25/2020 R05 Cough MARGI Caesy 03/25/2020 R06.2 Wheezing MARGI Casey Plan of [...]
--- OUTSIDE RECORDS SUMMARY | 2020-06-17 15:18 | CCD ---
Author Author [facility] Organization [facility] Address Unknown Phone Unavailable Care Team Providers Care Field Technical Support Consultant Name Role Phone TARI MONROY Unavailable Unavailable MEDENT_510, [phone] Unavailable Unavailable Douglas Siu MD Unavailable Unavailable Douglas Siu MD Unavailable Unavailable Douglas Siu MD Unavailable Unavailable Douglas Siu MD Unavailable Unavailable Douglas Siu MD Unavailable Unavailable Douglas Siu MD Unavailable Unavailable Douglas Siu MD Unavailable Unavailable Douglas Siu MD Unavailable Unavailable Douglas Siu MD Unavailable Unavailable Douglas Siu MD Unavailable Unavailable Douglas Siu MD Unavailable Unavailable Douglas Siu MD Unavailable Unavailable Douglas Siu MD Unavailable Unavailable Douglas Siu MD Unavailable Unavailable Douglas Siu MD Unavailable Unavailable Douglas Siu MD Unavailable Unavailable Douglas Siu MD Unavailable Unavailable Douglas Siu MD Unavailable Unavailable Douglas Siu MD Unavailable Unavailable Douglas Siu MD Unavailable Unavailable Douglas Siu MD Unavailable Unavailable Douglas Siu MD Unavailable Unavailable Douglas Siu MD Unavailable Unavailable Douglas Siu MD Unavailable Unavailable Douglas Siu MD Unavailable Unavailable Douglas Siu MD Unavailable Unavailable Douglas Siu MD Unavailable Unavailable WAY, J GABRIEL PA Unavailable Unavailable WAY, J GABRIEL PA Unavailable Unavailable WAY, J GABRIEL PA Unavailable Unavailable WAY, J GABRIEL PA Unavailable Unavailable WAY, J GABRIEL PA Unavailable Unavailable WAY, J GABRIEL PA Unavailable Unavailable WAY, J GABRIEL PA Unavailable Unavailable WAY, J GABRIEL PA Unavailable Unavailable WAY, J GABRIEL PA Unavailable Unavailable WAY, J GABRIEL PA Unavailable Unavailable WAY, J GABRIEL PA Unavailable Unavailable WAY, J GABRIEL PA Unavailable Unavailable WAY, J GABRIEL PA Unavailable Unavailable WAY, J GABRIEL PA Unavailable Unavailable WAY, J GABRIEL PA Unavailable Unavailable WAY, J GABRIEL PA Unavailable Unavailable WAY, J GABRIEL PA Unavailable Unavailable WAY, J GABRIEL PA Unavailable Unavailable WAY, J GABRIEL PA Unavailable Unavailable WAY, J GABRIEL PA Unavailable Unavailable WAY, J GABRIEL PA Unavailable Unavailable WAY, J GABRIEL PA Unavailable Unavailable WAY, J GABRIEL PA Unavailable Unavailable WAY, J GABRIEL PA Unavailable Unavailable WAY, J GABRIEL PA Unavailable Unavailable WAY, J GABRIEL PA Unavailable Unavailable WAY, J GABRIEL PA Unavailable Unavailable FORNI, R ETHAN DPM Unavailable Unavailable FORNI, R ETHAN DPM Unavailable Unavailable FORNI, R ETHAN DPM Unavailable Unavailable FORNI, R ETHAN DPM Unavailable Unavailable FORNI, R ETHAN DPM Unavailable Unavailable FORNI, R ETHAN DPM Unavailable Unavailable FORNI, R ETHAN DPM Unavailable Unavailable WHITE, WESTLEY Unavailable Unavailable Devendra, L Mary Ellen FORGING ROLL OPERATOR Unavailable Unavailable Devendra, L Mary Ellen FORGING ROLL OPERATOR Unavailable Unavailable Devendra, L Mary Ellen FORGING ROLL OPERATOR Unavailable Unavailable Devendra, L Mary Ellen FORGING ROLL OPERATOR Unavailable Unavailable Devendra, L Mary Ellen FORGING ROLL OPERATOR Unavailable Unavailable Devendra, L Mary Ellen FORGING ROLL OPERATOR Unavailable Unavailable Devendra, L Mary Ellen FORGING ROLL OPERATOR Unavailable Unavailable Devendra, L Mary Ellen FORGING ROLL OPERATOR Unavailable Unavailable Devendra, L Mary Ellen FORGING ROLL OPERATOR Unavailable Unavailable Devendra, L Mary Ellen FORGING ROLL OPERATOR Unavailable Unavailable Devendra, L Mary Ellen FORGING ROLL OPERATOR Unavailable Unavailable Devendra, L Mary Ellen FORGING ROLL OPERATOR Unavailable Unavailable Devendra, L Mary Ellen FORGING ROLL OPERATOR Unavailable Unavailable Devendra, L Mary Ellen FORGING ROLL OPERATOR Unavailable Unavailable Devendra, L Mary Ellen FORGING ROLL OPERATOR Unavailable Unavailable Devendra, L Mary Ellen FORGING ROLL OPERATOR Unavailable Unavailable Devendra, L Mary Ellen FORGING ROLL OPERATOR Unavailable Unavailable Devendra, L Mary Ellen FORGING ROLL OPERATOR Unavailable Unavailable Devendra, L Mary Ellen FORGING ROLL OPERATOR Unavailable Unavailable Devendra, L Mary Ellen FORGING ROLL OPERATOR Unavailable Unavailable Devendra, L Mary Ellen FORGING ROLL OPERATOR Unavailable Unavailable Devendra, L Mary Ellen FORGING ROLL OPERATOR Unavailable Unavailable MOORE, MARICRUZ MD Unavailable Unavailable MOORE, MARICRUZ MD Unavailable Unavailable MOORE MARICRUZ MD Unavailable Unavailable MOORE MARICRUZ MD Unavailable Unavailable MOORE MARICRUZ MD Unavailable Unavailable MOORE MARICRUZ MD Unavailable Unavailable MOORE MARICRUZ MD Unavailable Unavailable MOORE MARICRUZ MD Unavailable Unavailable MOORE MARICRUZ MD Unavailable Unavailable MOORE MARICRUZ MD Unavailable Unavailable MOORE MARICRUZ MD Unavailable Unavailable MOORE MARICRUZ MD Unavailable Unavailable MOORE MARICRUZ MD Unavailable Unavailable MOORE MARICRUZ MD Unavailable Unavailable MOORE MARICRUZ MD Unavailable Unavailable MOORE MARICRUZ MD Unavailable Unavailable MOORE MARICRUZ MD Unavailable Unavailable MOORE MARICRUZ MD Unavailable Unavailable MOORE MARICRUZ MD Unavailable Unavailable MOORE MARICRUZ MD Unavailable Unavailable MOOREMARICRUZ MD Unavailable Unavailable MOOREMARICRUZ MD Unavailable Unavailable MOORE MARICRUZ MD Unavailable Unavailable MOORE MARICRUZ MD Unavailable Unavailable MOORE MARICRUZ MD Unavailable Unavailable MOORE MARICRUZ MD Unavailable Unavailable MOORE MARICRUZ MD Unavailable Unavailable MOORE MARICRUZ MD Unavailable Unavailable MOORE MARICRUZ MD Unavailable Unavailable MOORE MARICRUZ MD Unavailable Unavailable MOORE MARICRUZ MD Unavailable Unavailable MOORE MARICRUZ MD Unavailable Unavailable MOORE MARICRUZ MD Unavailable Unavailable MOORE MARICRUZ MD Unavailable Unavailable MOORE MARICRUZ MD Unavailable Unavailable MOORE MARICRUZ MD Unavailable Unavailable MOORE MARICRUZ MD Unavailable Unavailable MOORE MARICRUZ MD Unavailable Unavailable MOORE MARICRUZ MD Unavailable Unavailable MOORE MARICRUZ MD Unavailable Unavailable MOORE MARICRUZ MD Unavailable Unavailable MOORE MARICRUZ Unavailable Unavailable MOORE MARICRUZ MD Unavailable Unavailable MOORE MARICRUZ MD Unavailable Unavailable MOORE MARICRUZ MD Unavailable Unavailable MOORE MARICRUZ MD Unavailable Unavailable MOORE MARICRUZ MD Unavailable Unavailable MOORE MARICRUZ MD Unavailable Unavailable OMORE MARICRUZ MD Unavailable Unavailable MOORE MARICRUZ Unavailable Unavailable MOORE MARICRUZ MD Unavailable Unavailable MOORE MARICRUZ MD Unavailable Unavailable MOORE MARICRUZ MD Unavailable Unavailable MOORE MARICRUZ MD Unavailable Unavailable MOORE MARICRUZ MD Unavailable Unavailable MOORE MARICRUZ MD Unavailable Unavailable MOOREMARICRUZ MD Unavailable Unavailable MOOREMARICRUZ MD Unavailable Unavailable MOORE, MARICRUZ MD Unavailable Unavailable MOORE, MARICRUZ MD Unavailable Unavailable MOOREMARICRUZ FORD MD Unavailable Unavailable MOOREMARICRUZ FORD MD Unavailable Unavailable MOOREMARICRUZ FORD MD Unavailable Unavailable MOOREMARICRUZ FORD MD Unavailable Unavailable MOOREMARICRUZ MD Unavailable Unavailable MOOREMARICRUZ MD Unavailable Unavailable MOOREMARICRUZ MD Unavailable Unavailable MOOREMARICRUZ MD Unavailable Unavailable MOOREMARICRUZ MD Unavailable Unavailable Kunnumpurath, F Kerri MD Unavailable Unavailable Kunnumpurath, F Kerri MD Unavailable Unavailable Kunnumpurath, F Kerri MD Unavailable Unavailable Kunnumpurath, F Kerri MD Unavailable Unavailable Kunnumpurath, F Kerri MD Unavailable Unavailable Kunnumpurath, F Kerri MD Unavailable Unavailable Kunnumpurath, F Kerri MD Unavailable Unavailable Kunnumpurath, F Kerri MD Unavailable Unavailable Kunnumpurath, F Kerri MD Unavailable Unavailable Kunnumpurath, F Kerri MD Unavailable Unavailable Kunnumpurath, F Kerri MD Unavailable Unavailable Kunnumpurath, F Kerri MD Unavailable Unavailable Kunnumpurath, F Kerri MD Unavailable Unavailable Kunnumpurath, F Kerri MD Unavailable Unavailable Kunnumpurath, F Kerri MD Unavailable Unavailable Kunnumpurath, F Kerri MD Unavailable Unavailable Kunnumpurath, F Kerri MD Unavailable Unavailable Kunnumpurath, F Kerri MD Unavailable Unavailable Kunnumpurath, F Kerri MD Unavailable Unavailable Kunnumpurath, F Kerri MD Unavailable Unavailable Kunnumpurath, F Kerri MD Unavailable Unavailable Kunnumpurath, F Kerri MD Unavailable Unavailable Kunnumpurath, F Kerri MD Unavailable Unavailable Kunnumpurath, F Kerri MD Unavailable Unavailable Kunnumpurath, F Kerri MD Unavailable Unavailable Kunnumpurath, F Kerri MD Unavailable Unavailable Kunnumpurath, F Kerri MD Unavailable Unavailable Kunnumpurath, F Kerri MD Unavailable Unavailable Kunnumpurath, F Kerri MD Unavailable Unavailable Kunnumpurath, F Kerri MD Unavailable Unavailable Kunnumpurath, F Kerri MD Unavailable Unavailable Kunnumpurath, F Kerri MD Unavailable Unavailable Kunn[place]urath, F Kerri MD Unavailable Unavailable Kunnumpurath, F Kerri KIM Unavailable Unavailable Kunnumpurath, F Kerri KIM Unavailable Unavailable Kunnumpurath, F Kerri KIM Unavailable Unavailable Kunnumpurath, F Kerri KIM Unavailable Unavailable [place]unnumpurath, F Kerri KIM Unavailable Unavailable FORNI, R ETHAN DPM Unavailable Unavailable FORNI, R ETHAN DPM Unavailable Unavailable FORNI, R ETHAN DPM Unavailable Unavailable FORNI, R ETHAN DPM Unavailable Unavailable FORNI, R ETHAN DPM Unavailable Unavailable FORNI, R ETHAN DPM Unavailable Unavailable FORNI, R ETHAN DPM Unavailable Unavailable Devendra, L Mary Ellen FORGING ROLL OPERATOR Unavailable Unavailable Devendra, L Mary Ellen FORGING ROLL OPERATOR Unavailable Unavailable Devendra, L Mary Ellen FORGING ROLL OPERATOR Unavailable Unavailable Devendra, L Mary Ellen FORGING ROLL OPERATOR Unavailable Unavailable Devendra, L Mary Ellen FORGING ROLL OPERATOR Unavailable Unavailable Devendra, L Mary Ellen FORGING ROLL OPERATOR Unavailable Unavailable Devendra, L Mary Ellen FORGING ROLL OPERATOR Unavailable Unavailable Devendra, L Mary Ellen FORGING ROLL OPERATOR Unavailable Unavailable Devendra, L Mary Ellen FORGING ROLL OPERATOR Unavailable Unavailable Devendra, L Mary Ellen FORGING ROLL OPERATOR Unavailable Unavailable Devendra, L Mary Ellen FORGING ROLL OPERATOR Unavailable Unavailable Devendra, L Mary Ellen FORGING ROLL OPERATOR Unavailable Unavailable Devendra, L Mary Ellen FORGING ROLL OPERATOR Unavailable Unavailable Devendra, L Mary Ellen FORGING ROLL OPERATOR Unavailable Unavailable Devendra, L Mary Ellen FORGING ROLL OPERATOR Unavailable Unavailable Devendra, L Mary Ellen FORGING ROLL OPERATOR Unavailable Unavailable Devendra, L Mary Ellen FORGING ROLL OPERATOR Unavailable Unavailable Devendra, L Mary Ellen FORGING ROLL OPERATOR Unavailable Unavailable Devendra, L Mary Ellen FORGING ROLL OPERATOR Unavailable Unavailable Devendra, L Mary Ellen FORGING ROLL OPERATOR Unavailable Unavailable Devendra, L Mary Ellen FORGING ROLL OPERATOR Unavailable Unavailable Devendra, L Mary Ellen FORGING ROLL OPERATOR Unavailable Unavailable Re-disclosure Warning The records that you are about to access may contain information from federally-assisted alcohol or drug abuse programs. If such information is present, then the following federally mandated warning applies: This information has been disclosed to you from records protected by federal confidentiality rules (42 CFR part 2). The federal rules prohibit you from making any further disclosure of this information unless further disclosure is expressly permitted by the written consent of the person to whom it pertains or as otherwise permitted by 42 CFR part 2. A general authorization for the release of medical or other information is NOT sufficient for this purpose. The Federal rules restrict any use of the information to criminally investigate or prosecute any alcohol or drug abuse patient.The records that you are about to access may contain highly sensitive health information, the redisclosure of which is protected by Article 27-F of the [facility] Public Health law. If you continue you may have access to information: Regarding HIV / AIDS; Provided by facilities licensed or operated by the [facility] Office of Mental Health; or Provided by the [facility] Office for People With Developmental Disabilities. If such information is present, then the following [facility] mandated warning applies: This information has been disclosed to you from confidential records which are protected by state law. State law prohibits you from making any further disclosure of this information without the specific written consent of the person to whom it pertains, or as otherwise permitted by law. Any unauthorized further disclosure in violation of state law may result in a fine or fci sentence or both. A general authorization for the release of medical or other information is NOT sufficient authorization for further disc losure. Family History Family Member Name Family Member Gender Family Member Status Date o f Status Description Data Source(s) Unknown Male Problem [facility] ([facility] ) Unknown Male Problem [facility] ([facility]) Encounters Encounter Providers Location Date Indications Data Source(s ) Outpatient Attender: ETHAN ALEXIS DPM 2020 02:31:00 PM EST - 06/14/2020 02:31:00 PM [facility] Outpatient Attender: ETHAN ALEXIS DPM Family Practice 06/14/2020 0 1:30:00 PM EST [facility] ([facility]) Outpatient Attender: MARICRUZ MOORE MDConsultant: MARICRUZ Verdugo MD 06/07/2020 01:04:00 PM EST - 06/07/2020 01:04:00 PM [facility] Outpatient Attender: MARICRUZ MOORE MD 2020 12:58:00 PM EST - 05/31/2020 12:58:00 PM [facility] Outpatient Attender: MARICRUZ MOORE MD Family Practice 05/31/2020 1 2:00:00 PM EST MED[facility] ([facility]) Outpatient Attender: MARICRUZ MOORE MDConsultant: MARIRCUZ Verdugo MD 05/27/2020 11:54:24 AM [facility] Outpatient Attender: WESTLEY RALPHConsultant: MARICRUZ MOORE MD 05/18/2020 03:00:00 PM EST - 05/18/2020 03:00:00 PM [facility] Outpatient Attender: Mary Ellen Pal NPConsultant: MARICRUZ MOORE MD 04/22/2020 03:32:00 PM EST - 04/22/2020 04:32:00 PM [facility] Outpatient Attender: MARICRUZ MOORE MDConsultant: MARICRUZ Verdugo MD 04/22/2020 03:00:00 PM EST - 04/22/2020 03:00:00 PM [facility] Outpatient Attender: WESTLEY RALPHConsultant: MARICRUZ MOORE MD 04/13/2020 02:53:00 PM EST - 04/13/2020 02:53:00 PM [facility] Outpatient Attender: Mary Ellen Cadena/Víctor/Rosas/Chantel 03/25/2020 09:00:00 AM EST [facility] ([facility] ) Outpatient Attender: Kerri Cortez MDConsultant: MARICRUZ MOORE MD 03/04/2020 01:40:00 PM EDT - 03/04/2020 01:40:00 PM EDT [facility] Outpatient Attender: WESTLEY Espino rer: Shmuel Siu MDConsultant: MARICRUZ MOORE MD 02/11/2020 10:56:00 AM EDT - 02/11/2020 10:56:00 AM EDT [facility] Outpatient Attender: MARICRUZ MOORE MD Family Practice 02/02/2020 0 8:20:00 AM EDT [facility] ([facility]) Outpatient Attender: MARICRUZ MOORE MDConsultant: MARICRUZ Verdugo MD 02/02/2020 08:19:00 AM EDT - 02/02/2020 08:19:00 AM EDT [facility] Outpatient Attender: MARICRUZ MOORE MDConsultant: MARICRUZ Verdugo MD 01/22/2020 01:58:00 PM EDT - 01/22/2020 02:58:00 PM EDT [facility] Outpatient Attender: MARICRUZ MOORE MD Family Practice 01/21/2020 0 1:20:00 PM EDT [facility] ([facility]) Outpatient Attender: MARICRUZ MOORE MD 2019 01:19:00 PM EDT - 01/21/2020 01:19:00 PM EDT [facility] Outpatient Attender: WESTLEY Geronimoant: MARICRUZ MOORE MD 01/06/2020 03:48:00 PM EDT - 01/06/2020 03:48:00 PM EDT [facility] Outpatient Attender: MARICRUZ MOORE MD Family Practice 12/08/2019 0 2:00:00 PM EDT [facility] ([facility]) Outpatient Attender: MARICRUZ MOORE MD 2019 01:55:00 PM EDT - 12/08/2019 01:55:00 PM EDT [facility] Outpatient Attender: WESTLEY Geronimoant: MARICRUZ MOORE MD 12/01/2019 03:45:00 PM EDT - 12/01/2019 03:45:00 PM EDT [facility] Outpatient Attender: WESTLEY Hernandezer: Shmuel rojas MD 11/18/2019 03:07:00 PM EDT - 11/18/2019 03:07:00 PM EDT [facility] Outpatient Attender: MARICRUZ MOORE MD [facility] 11/05/2019 0 2:20:00 PM EDT [facility] ([facility]) Outpatient Attender: MARICRUZ MOORE MDConsultant: MARICRUZ Verdugo MD 11/05/2019 01:59:00 PM EDT - 11/05/2019 01:59:00 PM EDT [facility] Outpatient Attender: GABRIEL Bella corcoran: Shmuel Siu MDConsultant: MARICRUZ MOORE MD 11/04/2019 03:09:00 PM EDT - 11/04/2019 03:09:00 PM EDT [facility] Outpatient Attender: [id number] [facility]_510 Family Practice 11/04/2019 03:00:00 PM EDT [facility] Outpatient Attender: WESTLEY Hernandezer: Shmuel rojas MD 11/04/2019 02:56:00 PM EDT - 11/04/2019 02:56:00 PM EDT [facility] Outpatient Attender: WESTLEY Espino rer: Shmuel Siu MDConsultant: MARICRUZ MOORE MD 10/21/2019 04:02:00 PM EDT - 10/21/2019 04:02:00 PM EDT [facility] Outpatient Attender: WESTLEY Espino rer: Shmuel Siu MDConsultant: MARICRUZ MOORE MD 10/10/2019 01:58:00 PM EDT - 10/10/2019 01:58:00 PM EDT [facility] Outpatient Attender: WESTLEY Espino rer: Shmuel Siu MDConsultant: MARICRUZ MOORE MD 09/11/2019 01:07:00 PM EDT - 09/11/2019 01:07:00 PM EDT [facility] Outpatient Attender: TARI MONROYReferrer: Shmuel sosa MD 08/27/2019 11:15:00 AM EDT - 08/27/2019 11:15:00 AM EDT [facility] Outpatient Attender: MARICRUZ MOORE MDConsultant: MARICRUZ Verdugo MD 08/14/2019 11:51:00 AM EDT - 08/14/2019 11:51:00 AM EDT [facility] Office Visit Attender: MARICRUZ MOORE MD Family Practice 2019 10:00:00 AM EDT [facility] Outpatient Attender: MARICRUZ MOORE MD Family Practice 07/21/2019 1 0:20:00 AM EDT [facility] ([facility]) Outpatient Attender: MARICRUZ MOORE MD 2019 10:11:00 AM EDT - 07/21/2019 10:11:00 AM EDT [facility] Outpatient Attender: MARICRUZ MOORE MDConsultant: MARICRUZ Verdugo MD 05/15/2019 12:30:00 PM EST - 05/15/2019 12:30:00 PM EST [facility] Outpatient Attender: MARICRUZ MOORE MD Family Practice 05/15/2019 1 2:00:00 PM EST [facility] ([facility]) Outpatient Attender: MARICRUZ MOORE MDConsultant: MARICRUZ Verdugo MD 04/28/2019 12:53:00 PM EST - 04/28/2019 12:53:00 PM EST [facility] Outpatient Attender: MARICRUZ MOORE MD Family Practice 04/28/2019 1 2:00:00 PM EST [facility] ([facility]) Outpatient Attender: MARICRUZ MOORE MDConsultant: MARICRUZ Verdugo MD 03/27/2019 01:02:00 PM EST - 03/27/2019 01:02:00 PM [facility] Immunizations Vaccine Date Status Description Data Source(s) New in 2011. IIV4 02/02/2020 09:07:00 AM EDT completed [facility] ([facility]) Medications Medication Brand Name Start Date Product Form Dose Route Admi nistrative Instructions Pharmacy Instructions Status Indications Reaction Description Data Source(s) Atenolol 25 MG Oral Tablet Atenolol 05/31/2020 12:00:00 AM EST ORAL completed [facility] ([facility]) Trazodone Hydrochloride 100 MG Oral Tablet Trazodone HCL 04/27/2020 12:00:00 AM EST ORAL active [facility] ([facility]) benzonatate 100 MG Oral Capsule [Tessalon Perles] Tessalon P erles 03/04/2020 12:00:00 AM EDT ORAL completed [facility] ([facility]) Sertraline 100 MG Oral Tablet Sertraline HCL 02/02/2020 12:00:00 AM E DT ORAL active [facility] ([facility]) Ondansetron 4 MG Disintegrating Oral Tablet Ondansetron 01/21/2020 12:00:00 AM EDT completed [facility] ([facility]) Loperamide Hydrochloride 2 MG Oral Tablet [Imodium] Imodium A-D 01/21/2020 12:00:00 AM EDT ORAL active M EDENT ([facility]) Ondansetron 4 MG Oral Tablet Ondansetron HCL 07/21/2019 12:00:00 AM E DT ORAL completed [facility] ([facility]) Azithromycin 250 MG Oral Tablet Azithromycin 02/18/2019 12:00:00 AM EDT completed [facility] ([facility]) Insurance Providers Payer name Policy type / Coverage type Policy ID Covered libertarian ID Covered libertarian's relationship to moreno Policy Moreno Plan Information [place] COM[place] [id number] 18 [id number] [place] COMP [place] [id number] 18 [id number] MEDICAID [place] [id number] UN COMMUNITY PLAN XIX [place] [id number] 18 [id number] [facility] COMMUNTY PLAN [id number] [facility] COMMUNITY [facility] [id number] 18 [id number] UNHC CP DUAL COMP - RECURRING [id number] 18 [id number] [place] [id number] 18 [id number] [place]LLCARE[place]CL[place]IC [place] [id number] 18 [id number] MEDICAID [id number] WELLCARE -O/P [id number] 18 [id number] MEDICAID -O/P [id number] WELLCARE [id number] SP [id number] [place] [id number] SP [id number] WELLCARE [place]CL[place] [id number] 18 [id number] MEDICAID -PHYSICIAN [id number] WELLCARE [id number] [place]ARE [place] [id number] 18 [id number] MEDICARE PART A -CLINIC [id number] MEDICAID -CLINIC [id number] MEDICARE PART A [id number] 18 [id number] MEDICAID BH [id number] [place] [id number] 18 [id number] MEDICAID -CLINIC [id number] MEDICARE PART A -O/P [id number] 18 [id number] [place] XIX [place] [id number] 18 [id number] [place] [id number] 18 [id number] UNAVAILABLE UNAVAILA BLE PHAN [id number] SP [id number] [place] [id number] S [id number] [place] XIX MAN [id number] 18 [id number] Medicaid Commercial [id number] Self [id number] [place] [id number] Self [id number] Ph[employer] Care Commercial [id number] Self [id number] [place] [id number] Self [id number] [place] [id number] 18 [id number] [place] Care Commercial [id number] Self [id number] [place] [id number] Self [id number] [place] [id number] Self [id number] [place] Care Commercial [id number] Self [id number] MEDICAID [id number] [place]/CHP/FHP Commercial [id number] Self [id number] Ph[place] Medicaid/CHP/FHP Commercial [id number] Self [id number] MEDICAID [id number] [place] Medicaid/CHP/FHP Commercial [id number] Self [id number] Phan Medicaid/CHP/FHP Commercial [id number] Self [id number] [place]P/FHP Commercial [id number] Self [id number] Phan Care Commercial [id number] Self [id number] Ph[place] Care [place] [id number] Self [id number] [place] ([facility]) Commercial [id number] Self [id number] [facility] [place] [place]([facility]) Medicaid [id number] Self [id number] [place] ([facility]) Commercial [id number] Self [id number] MEDICAID M [id number] Phan ([facility]) Commercial [id number] Self [id number] [employer] ([facility]) Commercial [id number] Self [id number] MEDICAID - CLINIC [id number] Problems, Conditions, and Diagnoses Code Display Name Description Problem Type Effective Dates Data Source(s) 924588367 Dyspnea Dyspnea Problem 03/25/2020 12:00:00 AM ES T [facility] ([facility], ) [id number] Cough Cough Problem 03/25/2020 12:00:00 AM ES T [facility] ([facility], ) [id number] Wheezing Wheezing Problem 03/25/2020 12:00:00 AM ES T [facility] ([facility], ) [id number] Recurrent major depressive episodes Recu rrent major depressive episodes Problem 08/27/2019 12:00:00 AM EDT [facility] ([facility]) [id number] Encounter for examination of blood press ure without abnormal findings Encounter for examination of blood pressure without abnormal findings Diagnosis 06/07/2020 01:04:00 PM [facility] L600 Ingrowing nail Ingrowing nail Diagnosis 05/31/2020 12:58: 00 PM [facility] I10 Essential (primary) hypertension Essential (primary) h ypertension Diagnosis 05/31/2020 12:58:00 PM [facility] M549 Dorsalgia, unspecified Dorsalgia, unspecified Diagnosi s 05/28/2020 10:20:00 AM [facility] F339 Major depressive disorder, recurrent, un specified Major depressive disorder, recurrent, unspecified Diagnosis 05/18/2020 03:00:00 PM [facility] R0602 Shortness of breath Shortness of breath Diagnosis 1 06/23/2019 03:32:00 PM [facility] G4700 Insomnia, unspecified Insomnia, unspecified Diagnosis 04/22/2020 03:00:00 PM [facility] M419 Scoliosis, unspecified Scoliosis, unspecified Diagnosi s 04/22/2020 03:00:00 PM [facility] Z0000 Encounter for general adult medical exam ination without abnormal findings Encounter for general adult medical examination without abnormal findings Diagnosis 04/22/2020 03:00:00 PM [facility] F840 Autistic disorder Autistic disorder Diagnosis 04/13/2020 02:53:00 PM [facility] J209 Acute bronchitis, unspecified Acute bronchitis, unspec ified Diagnosis 03/04/2020 01:40:00 PM [facility] Z23 Encounter for immunization Encounter for immunization Diagnosis 02/02/2020 08:19:00 AM [facility] K580 Irritable bowel syndrome with diarrhea I rritable bowel syndrome with diarrhea Diagnosis 02/02/2020 08:19:00 AM [facility] R112 Nausea with vomiting, unspecified Nausea with vo miting, unspecified Diagnosis 01/21/2020 01:19:00 PM EDT [facility] R102 Pelvic and perineal pain Pelvic and perineal pain Diag nosis 01/21/2020 01:19:00 PM EDT [facility] J309 Allergic rhinitis, unspecified Allergic rhinitis, unsp ecified Diagnosis 12/08/2019 01:55:00 PM EDT [facility] [id number] Unspecified asthma, uncomplicated Unspecified as thma, uncomplicated Diagnosis 12/08/2019 01:55:00 PM EDT [facility] I781 Nevus, non-neoplastic Nevus, non-neoplastic Diagnosis 11/05/2019 01:59:00 PM EDT [facility] N489 Disorder of penis, unspecified Disorder of penis, unsp ecified Diagnosis 08/14/2019 11:51:00 AM EDT [facility] K2900 Acute gastritis without bleeding Acute gastritis without bleeding Diagnosis 07/21/2019 10:11:00 AM EDT [facility] R05 Cough Cough Diagnosis 07/21/2019 10:11:00 AM ED T [facility] F331 Major depressive disorder, recurrent, mo derate Major depressive disorder, recurrent, moderate Diagnosis 07/21/2019 10:11:00 AM T [facility] Surgeries/Procedures Procedure Description Date Indications Data Source(s) Debridement Nails Any Method 1-5 06/14/2020 12:00:00 A M EST [facility] ([facility]) Bronchospasm Evaluation 04/05/2020 12:00:00 AM EST [facility] ([facility], ) Maximum Breathing Capacity, Maximal Voluntary Ventilation 04/05/2020 12:00:00 AM EST [facility] Plethysmography Determination Lung Volumes & Per Airway Resi st 04/05/2020 12:00:00 AM EST [facility] ([facility] DIFFUSING CAPACITY 04/05/2020 12:00:00 AM EST [facility] ([facility], ) Spirometry 03/25/2020 12:00:00 AM EST M [facility] ([facility], ) Brief Emotional/Behav Assessment W/ Scoring Doc Per Standard Inst 12/08/2019 12:00:00 AM EDT [facility] ([facility]) Psychiatric Diagnostic Evaluation 08/27/2019 12:00:00 AM EDT [facility] ([facility]) Electrocardiogram Complete 05/15/2019 12:00:00 AM EST [facility] ([facility]) Results ID Date Data Source [id number] 04/23/2020 03:11:00 PM EST [facility] [address] [place] [address] PHONE: [phone] FAX: [phone] Name .................. : DEENA Sullivan Acct Number.................. : [id number] ROOM. ................. : Number ................... : [id number] Stay type ............. : O/P Discharge Date......... ... : 04/22/20 Admit Date ......... : 04/22/20 Admit Phys .................... : DEVENDRA MOCTEZUMA Date of ....... : 2000 Family Phys ................... : MOORE HARD Phone .................. : [phone] Age ................................ : 19 Film# .................. .:[id number] Sex ................................. : M Unsigned transcriptions are preliminary reports and do not represent a medical or legal document CHEST 2 VIEWS [id number] COMPLETE:04/22/20 19:00 [facility] [address] (REASON FOR CHEST: SHORTNESS OF BREATH CHEST X-RAY: PA AND LATERAL VIEWS HISTORY: Shortness of breath. FINDINGS: The cardiac and mediastinal silhouettes appear normal and the lungs are clear. The bones and soft tissues are normal. The upper abdomen is unremarkable. IMPRESSION: No acute disease identifiable. Electronically Reviewed and Signed By Dariusz Torres MD , 04/13 06/02 15:11, TDS Transcribe Initials: AASHISH , Transcribe Date: 04/23/20 00:51, Dictation Date: Copy for: DEVENDRA MOCTEZUMA via fax Copy for: [address] [place] [address] REC Page 1 of 1 Name Value Range Interpretation Code Description Data Saskia rce(s) Supporting Document(s) ID Date Data Source [id number] 04/23/2020 03:11:00 [place] [address] PHONE: [phone] FAX: [phone] Name .................. : DEENA Sullivan Acct Number.................. : [id number] ROOM. ................. : Number ................... : [id number] Stay type ............. : CLINIC Discharge Date......... ... : 04/22/20 Admit Date ......... : 04/22/20 Admit Phys .................... : MOORE HARD Date of ....... : 2000 Family Phys ................... : MOORE HARD Phone .................. : [phone] Age ................................ : 19 Film# .................. .:[id number] Sex ................................. : M Unsigned transcriptions are preliminary reports and do not represent a medical or legal document SPINE SCOLIOSIS 1 VIEW [id number] COMPLETE:04/22/20 19:00 [facility] [address] (SPINE PROC REASON: SCOLIOSIS SCOLIOSIS SERIES: FINDINGS: Frontal images of the thoracic and lumbar spine were obtained. No scoliosis is seen. No fracture or suspicious osseous lesion is identified. IMPRESSION: Unremarkable scoliosis series. Electronically Reviewed and Signed By Dariusz Torres MD , 04/23/20 15:11, TDS Transcribe Initials: DZ , Transcribe Date: 04/23/20 00:40, Dictation Date: Page 1 of 1 Name Value Range Interpretation Code Description Data Saskia rce(s) Supporting Document(s) ID Date Data Source [id number] 04/23/2020 03:10:00 [place] [address] PHONE: [phone] FAX: [phone] Name .................. : [facility] [id number] ROOM. ................. : Number ................... : [id number] Stay type ............. : CLINIC Discharge Date......... ... : 04/22/20 Admit Date ......... : 04/22/20 Admit Phys .................... : MOORE HARD Date of ....... : 2000 Family Phys ................... : TERESA HARD Phone ... ............... : [phone] Age ................................ : 19 Film# .................. .:[id number] Sex ................................. : M Unsigned t ranscriptions are preliminary reports and do not represent a medical or legal document SPINE LS COMPLETE [id number] COMPLETE:04/22/20 19:00 [facility] [address] (SPINE PROC REASON: PAIN LUMBAR SPINE SERIES: COMPARISON: 01/10/19 FINDINGS: Routine views show normal alignment. The vertebral bodies and disc spaces are well maintained. The pedicles and posterior elements are intact. No pars defects are seen. The SI joints are unremarkable. IMPRESSION: Negative lumbar spine. Electronically Reviewed and Signed By Henrique Torres MD , 04/23/20 15:11, TDS Transcribe Initials: DZ , Transcribe Date: 04/23/20 00:39, Dictation Date: Page 1 of 1 Name Value Range Interpretation Code Description Data Saskia rce(s) Supporting Document(s) ID Date Data Source [id number] 04/22/2020 03:20:00 PM EST [facility] ([facility]) Name Value Range Interpretation Code Description Data Saskia rce(s) Supporting Document(s) Spine Cerv Comp-5 Or More View Laboratory test result [facility] ([facility]) Spine LS Complete Laboratory test result [facility] ([facility]) Spine Thoracic Laboratory test result [facility] ([facility]) Spine Scoliosis 1 View Laboratory test result [facility] ([facility]) ID Date Data Source [id number] 02/25/2020 12:00:00 AM EDT [facility] Name Value Range Interpretation Code Description Data Saskia rce(s) Supporting Document(s) SARS coronavirus 2 RNA [Presence] in Res piratory specimen by CORNEL with probe detection [facility] This lab was ordered by Gael Prieto and reported by [facility]. ID Date Data Source [id number] 01/23/2020 02:41:00 PM EDT [facility] [address] [place] [address] PHONE: [phone] FAX: [phone] Name .................. : DEENA Sullivan Acct Number.................. : [id number] ROOM. ................. : Number ................... : [id number] Stay type ............. : O/P Discharge Date......... ... : 01/22/20 Admit Date ......... : 01/22/20 Admit Phys .................... : [employer] Date of ....... : 2000 Family Phys ................... : Wiki-PR HARD Phone .................. : [phone] Age ................................ : 19 Film# .................. .:[id number] Sex ................................. : M Unsigned transcriptions are preliminary reports and do not represent a medical or legal document CT ABD & PELV W/O ORAL W/O IV [id number] COMPLETE:01/22/20 15:32 BEM [id number] (REASON FOR ABDOMEN: PELVIC AND PERINEAL PAIN, DIARRHEA,NAUSEA,VOMITTIN CT SCAN OF THE ABDOMEN AND PELVIS WITHOUT CONTRAST: INDICATION: Pelvic and perineal pain, diarrhea, nausea and vomiting. FINDINGS: The lung bases show no distinct nodule or infiltrate. No pleural or pericardial effusion is identified. The liver, gallbladder, spleen, adrenal glands and bilateral kidneys appear unremarkable. No hydronephrosis or nephrolithiasis is identified. The enteric structure are limited in evaluation due to motion artifact. Nonspecific scattered lymph nodes are identified in the right lower quadrant which are not enlarged and may represent underlying mesenteric adenitis. The appendix is not discretely visualized. No secondary signs of appendicitis are identified. Moderate stool is identified in the rectum and sigmoid. No free fluid is identified in the pelvis. The osseous structures appear unremarkable. IMPRESSION: Nonspecific, nonenlarged lymph nodes in the right lower quadrant raising suspicion for possible mesenteric adenitis. Examination is limited by motion artifact. No secondary signs of appendicitis. While performing the above CT examination, radiation dose reduction was accomplished utilizing automated exposure control, adjusting of the mA and kV based on the patient's body size and/or the use of imperative reconstructive techniques. CT dose: 864.2 mGycm Examination dictated by ELOY Charles. Examination was reviewed with Florentino Torres MD, radiologist at the time of this dictation. Electronically Reviewed and Signed By Page 1 of 2 [place] [address] PHONE: [phone] FAX: [phone] Name .................. : KUMARXochitl NOHEMY Sullivan Acct Number.................. : [id number] ROOM. ................. : MR Number ................... : [id number] Stay type ............. : O/P Discharge Date......... ... : 01/22/20 Admit Date ......... : 01/22/20 Admit Phys .................... : MOORE HARD Date of ....... : 2000 Family Phys ................... : MOORE HARD Phone .................. : [phone] Age ................................ : 19 Film# .................. .:[id number] Sex ................................. : M Unsigned transcriptions are preliminary reports and do not represent a medical or legal document CT ABD & PELV W/O ORAL W/O IV [id number] COMPLETE:01/22/20 15:32 BEM [id number] (REASON FOR ABDOMEN: PELVIC AND PERINEAL PAIN, DIARRHEA,NAUSEA,VOMITTIN Dariusz Torres MD , 01/23/20 14:41, TDS Transcribe Initials: DZ , Transcribe Date: 01/22/20 22:40, Dictation Date: Copy for: 710 MED REC Page 2 of 2 Name Value Range Interpretation Code Description Data [facility] Supporting Document(s) ID Date Data Source [id number] 01/21/2020 01:47:00 PM EDT [facility] ([facility]) Name Value Range Interpretation Code Description Data [facility] rce(s) Supporting Document(s) Cve Panel Laboratory test result [facility] ([facility]) Is patient fasting? N {SOURCE: Clean C atch~NURSE COLLECTED? N {SPECIMEN TYPE: CLEAN CATCH HDL 42 mg/dL 29- [facility] ([facility]) Is patient fasting? N {SOURCE: Clean C atch~NURSE COLLECTED? N {SPECIMEN TYPE: CLEAN CATCH Triglycerides 223 mg/dL 35-160 Above high normal [facility] NT ([facility]) Is patient fasting? N {SOURCE: Clean C atch~NURSE COLLECTED? N {SPECIMEN TYPE: CLEAN CATCH Cholesterol 166 mg/dL 131-200 [facility] ([facility]) Is patient fasting? N {SOURCE: Clean C atch~NURSE COLLECTED? N {SPECIMEN TYPE: CLEAN CATCH LDL 96 mg/dL 65-175 [facility] ([facility]) Is patient fasting? N {SOURCE: Clean C atch~NURSE COLLECTED? N {SPECIMEN TYPE: CLEAN CATCH Risk Factor 4.0 3.4-4.9 [facility] ([facility]) Is patient fasting? N {SOURCE: Clean C atch~NURSE COLLECTED? N {SPECIMEN TYPE: CLEAN CATCH LDL/HDL 2.29 1.00-3.55 [facility] ([facility]) Is patient fasting? N {SOURCE: Clean C atch~NURSE COLLECTED? N {SPECIMEN TYPE: CLEAN CATCH ID Date Data Source [id number] 01/21/2020 01:47:00 PM EDT [facility] ([facility]) Name Value Range Interpretation Code Description Data Saskia rce(s) Supporting Document(s) Comprehensive [employer] Laboratory test result [facility] ([facility]) Is patient fasting? N {SOURCE: Clean C atch~NURSE COLLECTED? N {SPECIMEN TYPE: CLEAN CATCH Sodium 140 meq/L 134-153 [facility] ([facility]) Is patient fasting? N {SOURCE: Clean C atch~NURSE COLLECTED? N {SPECIMEN TYPE: CLEAN CATCH Potassium 4.0 meq/L 3.6-5.0 [facility] ([facility]) Is patient fasting? N {SOURCE: Clean C atch~NURSE COLLECTED? N {SPECIMEN TYPE: CLEAN CATCH Glucose 111 mg/dL 65-110 Above high normal [facility] ([facility]) Is patient fasting? N {SOURCE: Clean C atch~NURSE COLLECTED? N {SPECIMEN TYPE: CLEAN CATCH Co2 26 meq/L 22-30 [facility] ([facility]) Is patient fasting? N {SOURCE: Clean C atch~NURSE COLLECTED? N {SPECIMEN TYPE: CLEAN CATCH Chloride 100 meq/L 98-107 [facility] ([facility]) Is patient fasting? N {SOURCE: Clean C atch~NURSE COLLECTED? N {SPECIMEN TYPE: CLEAN CATCH Creatinine 0.9 mg/dL 0.7-1.5 [facility] ([facility]) Is patient fasting? N {SOURCE: Clean C atch~NURSE COLLECTED? N {SPECIMEN TYPE: CLEAN CATCH BUN 8 mg/dL 7-21 [facility] ([facility]) Is patient fasting? N {SOURCE: Clean C atch~NURSE COLLECTED? N {SPECIMEN TYPE: CLEAN CATCH BUN/Creat 9 8-27 [facility] ([facility]) Is patient fasting? N {SOURCE: Clean C atch~NURSE COLLECTED? N {SPECIMEN TYPE: CLEAN CATCH Albumin 4.5 g/dL 3.9-5.0 [facility] ([facility]) Is patient fasting? N {SOURCE: Clean C atch~NURSE COLLECTED? N {SPECIMEN TYPE: CLEAN CATCH Total Protein 7.8 g/dL 6.3-8.2 [facility] ([facility]) Is patient fasting? N {SOURCE: Clean C atch~NURSE COLLECTED? N {SPECIMEN TYPE: CLEAN CATCH A/G Ratio 1.4 0.8-2.0 [facility] ([facility]) Is patient fasting? N {SOURCE: Clean C atch~NURSE COLLECTED? N {SPECIMEN TYPE: CLEAN CATCH Calcium 9.9 mg/dL 8.4-10.2 [facility] ([facility]) Is patient fasting? N {SOURCE: Clean C atch~NURSE COLLECTED? N {SPECIMEN TYPE: CLEAN CATCH Globulin 3.3 GM/DL 2.4-3.2 Above high normal [facility] ([facility]) Is patient fasting? N {SOURCE: Clean C atch~NURSE COLLECTED? N {SPECIMEN TYPE: CLEAN CATCH Alkaline Phos 86 U/L 38-126 [facility] ([facility]) Is patient fasting? N {SOURCE: Clean C atch~NURSE COLLECTED? N {SPECIMEN TYPE: CLEAN CATCH Total Bili Laboratory test result 0.2-1.3 ME [facility] ([facility]) Is patient fasting? N {SOURCE: Clean C atch~NURSE COLLECTED? N {SPECIMEN TYPE: CLEAN CATCH Anion Gap 14.0 mmol/L 8.0-16.0 [facility] ([facility]) Is patient fasting? N {SOURCE: Clean C atch~NURSE COLLECTED? N {SPECIMEN TYPE: CLEAN CATCH SGPT/Alt 34 U/L 7-56 [facility] ([facility]) Is patient fasting? N {SOURCE: Clean C atch~NURSE COLLECTED? N {SPECIMEN TYPE: CLEAN CATCH Sgot/Ast 20 U/L 5-40 [facility] ([facility]) Is patient fasting? N {SOURCE: Clean C atch~NURSE COLLECTED? N {SPECIMEN TYPE: CLEAN CATCH Non-Aa GFR Laboratory test result [facility] ([facility]) Is patient fasting? N {SOURCE: Clean C atch~NURSE COLLECTED? N {SPECIMEN TYPE: CLEAN CATCH Age 19 yrs [facility] ([facility]) Is patient fasting? N {SOURCE: Clean C atch~NURSE COLLECTED? N {SPECIMEN TYPE: CLEAN CATCH Afr Amer GFR Laboratory test result [facility] ([facility]) Is patient fasting? N {SOURCE: Clean C atch~NURSE COLLECTED? N {SPECIMEN TYPE: CLEAN CATCH ID Date Data Source [id number] 01/21/2020 01:47:00 PM EDT [facility] ([facility]) Name Value Range Interpretation Code Description Data Saskia rce(s) Supporting Document(s) CBC W/Automated Diff Laboratory test result [facility] ([facility]) Is patient fasting? N {SOURCE: Clean C atch~NURSE COLLECTED? N {SPECIMEN TYPE: CLEAN CATCH WBC 12.5 10^3/uL 4.2-11.0 Above high normal [facility] T ([facility]) Is patient fasting? N {SOURCE: Clean C atch~NURSE COLLECTED? N {SPECIMEN TYPE: CLEAN CATCH RBC 6.45 10^6/uL 4.50-6.30 Above high normal [facility] ([facility]) Is patient fasting? N {SOURCE: Clean C atch~NURSE COLLECTED? N {SPECIMEN TYPE: CLEAN CATCH Hemoglobin 15.9 g/dL 14.0-16.0 [facility] ([facility]) Is patient fasting? N {SOURCE: Clean C atch~NURSE COLLECTED? N {SPECIMEN TYPE: CLEAN CATCH Hematocrit 50.4 % 41.0-51.0 [facility] ([facility]) Is patient fasting? N {SOURCE: Clean C atch~NURSE COLLECTED? N {SPECIMEN TYPE: CLEAN CATCH MCH 24.7 pg 27.0-34.0 Below low normal [facility] ( [facility]) Is patient fasting? N {SOURCE: Clean C atch~NURSE COLLECTED? N {SPECIMEN TYPE: CLEAN CATCH MCV 78.1 fL 80.0-94.0 Below low normal [facility] ( [facility]) Is patient fasting? N {SOURCE: Clean C atch~NURSE COLLECTED? N {SPECIMEN TYPE: CLEAN CATCH RDW 13.3 % 11.5-14.8 [facility] ([facility]) Is patient fasting? N {SOURCE: Clean C atch~NURSE COLLECTED? N {SPECIMEN TYPE: CLEAN CATCH MCHC 31.5 g/dL 31.0-36.0 [facility] ([facility]) Is patient fasting? N {SOURCE: Clean C atch~NURSE COLLECTED? N {SPECIMEN TYPE: CLEAN CATCH Platelets 349 10^3/uL 150-450 [facility] ([facility]) Is patient fasting? N {SOURCE: Clean C atch~NURSE COLLECTED? N {SPECIMEN TYPE: CLEAN CATCH MPV 10.6 fL 7.4-10.4 Above high normal [facility] ([facility]) Is patient fasting? N {SOURCE: Clean C atch~NURSE COLLECTED? N {SPECIMEN TYPE: CLEAN CATCH Neut 59.8 % 37.0-80.0 [facility] ([facility]) Is patient fasting? N {SOURCE: Clean C atch~NURSE COLLECTED? N {SPECIMEN TYPE: CLEAN CATCH Lymph 31.0 % 25.0-40.0 [facility] ([facility]) Is patient fasting? N {SOURCE: Clean C atch~NURSE COLLECTED? N {SPECIMEN TYPE: CLEAN CATCH [place] 6.2 % 3.0-8.0 [facility] ([facility]) Is patient fasting? N {SOURCE: Clean C atch~NURSE COLLECTED? N {SPECIMEN TYPE: CLEAN CATCH Eos 2.2 % 0.0-7.0 [facility] ([facility]) Is patient fasting? N {SOURCE: Clean C atch~NURSE COLLECTED? N {SPECIMEN TYPE: CLEAN CATCH %Ig 0.4 % 0.0-0.0 Above high normal [facility] ([facility]) Is patient fasting? N {SOURCE: Clean C atch~NURSE COLLECTED? N {SPECIMEN TYPE: CLEAN CATCH Baso 0.4 % 0.0-2.0 [facility] ([facility]) Is patient fasting? N {SOURCE: Clean C atch~NURSE COLLECTED? N {SPECIMEN TYPE: CLEAN CATCH #Lymph 3.88 10^3/uL 0.60-3.40 Above high normal [facility] T ([facility]) Is patient fasting? N {SOURCE: Clean C atch~NURSE COLLECTED? N {SPECIMEN TYPE: CLEAN CATCH #Neut 7.49 10^3/uL 2.00-6.90 Above high normal [facility] ([facility]) Is patient fasting? N {SOURCE: Clean C atch~NURSE COLLECTED? N {SPECIMEN TYPE: CLEAN CATCH %NRBC 0.0 % 0.0-0.0 [facility] ([facility]) Is patient fasting? N {SOURCE: Clean C atch~NURSE COLLECTED? N {SPECIMEN TYPE: CLEAN CATCH #Eos 0.28 10^3/uL 0.00-0.70 [facility] ([facility]) Is patient fasting? N {SOURCE: Clean C atch~NURSE COLLECTED? N {SPECIMEN TYPE: CLEAN CATCH #[place] 0.78 10^3/uL 0.00-0.90 [facility] ([facility]) Is patient fasting? N {SOURCE: Clean C atch~NURSE COLLECTED? N {SPECIMEN TYPE: CLEAN CATCH #Ig 0.05 10^3/uL 0.00-0.10 [facility] ([facility]) Is patient fasting? N {SOURCE: Clean C atch~NURSE COLLECTED? N {SPECIMEN TYPE: CLEAN CATCH #Baso 0.05 10^3/uL 0.00-0.20 [facility] ([facility]) Is patient fasting? N {SOURCE: Clean C atch~NURSE COLLECTED? N {SPECIMEN TYPE: CLEAN CATCH #NRBC 0.00 10^3/uL 0.00-0.00 [facility] ([facility]) Is patient fasting? N {SOURCE: Clean C atch~NURSE COLLECTED? N {SPECIMEN TYPE: CLEAN CATCH RBC Morph Laboratory test result [facility] ([facility]) Is patient fasting? N {SOURCE: Clean C atch~NURSE COLLECTED? N {SPECIMEN TYPE: CLEAN CATCH Manual Diff Laboratory test result [facility] ([facility]) Is patient fasting? N {SOURCE: Clean C atch~NURSE COLLECTED? N {SPECIMEN TYPE: CLEAN CATCH ID Date Data Source [id number] 01/21/2020 01:47:00 PM EDT [facility] ([facility]) Name Value Range Interpretation Code Description Data Saskia rce(s) Supporting Document(s) Culture Urine Laboratory test result [facility] ([facility]) Is patient fasting? N {SOURCE: Clean C atch~NURSE COLLECTED? N {SPECIMEN TYPE: CLEAN CATCH ID Date Data Source [id number] 01/21/2020 01:47:00 PM EDT [facility] ([facility]) Name Value Range Interpretation Code Description Data Saskia rce(s) Supporting Document(s) Urinalysis Laboratory test result [facility] ([facility]) Is patient fasting? N {SOURCE: Clean C atch~NURSE COLLECTED? N {SPECIMEN TYPE: CLEAN CATCH Source Laboratory test result [facility] ([facility]) Is patient fasting? N {SOURCE: Clean C atch~NURSE COLLECTED? N {SPECIMEN TYPE: CLEAN CATCH Color Laboratory test result [facility] ([facility]) Is patient fasting? N {SOURCE: Clean C atch~NURSE COLLECTED? N {SPECIMEN TYPE: CLEAN CATCH Clarity Laboratory test result [facility] ([facility]) Is patient fasting? N {SOURCE: Clean C atch~NURSE COLLECTED? N {SPECIMEN TYPE: CLEAN CATCH Spec [place] 1.030 1.001-1.030 [facility] ([facility]) Is patient fasting? N {SOURCE: Clean C atch~NURSE COLLECTED? N {SPECIMEN TYPE: CLEAN CATCH pH 5 5-9 [facility] ([facility]) Is patient fasting? N {SOURCE: Clean C atch~NURSE COLLECTED? N {SPECIMEN TYPE: CLEAN CATCH Bilirubin Laboratory test result [facility] ([facility]) Is patient fasting? N {SOURCE: Clean C atch~NURSE COLLECTED? N {SPECIMEN TYPE: CLEAN CATCH Glucose Laboratory test result [facility] ([facility]) Is patient fasting? N {SOURCE: Clean C atch~NURSE COLLECTED? N {SPECIMEN TYPE: CLEAN CATCH Ketone 5 Abnormal (applies to non-numeric res ults) [facility] ([facility]) Is patient fasting? N {SOURCE: Clean C atch~NURSE COLLECTED? N {SPECIMEN TYPE: CLEAN CATCH Nitrite Laboratory test result [facility] ([facility]) Is patient fasting? N {SOURCE: Clean C atch~NURSE COLLECTED? N {SPECIMEN TYPE: CLEAN CATCH Blood Laboratory test result [facility] ([facility]) Is patient fasting? N {SOURCE: Clean C atch~NURSE COLLECTED? N {SPECIMEN TYPE: CLEAN CATCH Protein 15 [facility] ([facility]) Is patient fasting? N {SOURCE: Clean C atch~NURSE COLLECTED? N {SPECIMEN TYPE: CLEAN CATCH Urobilinogen Laboratory test result [facility] ([facility]) Is patient fasting? N {SOURCE: Clean C atch~NURSE COLLECTED? N {SPECIMEN TYPE: CLEAN CATCH Leuk Est Laboratory test result [facility] ([facility]) Is patient fasting? N {SOURCE: Clean C atch~NURSE COLLECTED? N {SPECIMEN TYPE: CLEAN CATCH Epithelial Laboratory test result [facility] ([facility]) Is patient fasting? N {SOURCE: Clean C atch~NURSE COLLECTED? N {SPECIMEN TYPE: CLEAN CATCH Microscopic Laboratory test result [facility] ([facility]) Is patient fasting? N {SOURCE: Clean C atch~NURSE COLLECTED? N {SPECIMEN TYPE: CLEAN CATCH Amorph Sed Laboratory test result [facility] ([facility]) Is patient fasting? N {SOURCE: Clean C atch~NURSE COLLECTED? N {SPECIMEN TYPE: CLEAN CATCH Crystals Laboratory test result [facility] ([facility]) Is patient fasting? N {SOURCE: Clean C atch~NURSE COLLECTED? N {SPECIMEN TYPE: CLEAN CATCH Calcium Ox Laboratory test result [facility] ([facility]) Is patient fasting? N {SOURCE: Clean C atch~NURSE COLLECTED? N {SPECIMEN TYPE: CLEAN CATCH ID Date Data Source [id number] 01/25/2020 08:53:00 AM EDT [facility] Name Value Range Interpretation Code Description Data Saskia rce(s) Supporting Document(s) CULTURE URINE [facility] _CULTURE URINE_$$[id number]$$[id number]$$[id number]$$[id number]$$[id number]$$[id number]$$[id number]$$[id number]$$368092$$ 597706$$636992$$784819$$619172$$[id number]$$866697$$545539$$882863$$125176$$693486$$ 946260$$222251$$721351$$741450$$736257$$973237$$190034$$[id number] -- Continued on next page --Patient: DEENA Sullivan Order: [id number] Page 2Culture: CULTURE URINE Status: Final ==== -- Continued on next page --Patient: DEENA Sullivan Order: [id number] Page 2Culture: CULTURE URINE Status: Prelim ===== -- Continued on next page --Patient: DEENA Sullivan Order: [id number] Page 2Culture: CULTURE URINE Status: Prelim =====$$[id number]$$[id number] DATE/TIME: 01/25/2020 07:05Culture: CULTURE URINE Status: FinalUrine Culture,Comprehensive: P1No growth in 36 - 48 hours. Previous result entered on 01/24/2020 14:25 ET No growth after 18-24 hours. Previous result entered on 01/24/2020 05:40 ET No growth after 18-24 hours.P1 Test performed by: [facility] #: [id number] [address] [place] [address] [id number] [facility] [id number] Director : Dion Perez MD NPI #:Cio : 01/24/[id number].SENT REF 01/24/[id number].SENT REF 01/25/[id number].SENT REF ID Date Data Source [id number] 01/21/2020 08:08:00 PM EDT [facility] Name Value Range Interpretation Code Description Data Saskia rce(s) Supporting Document(s) URINALYSIS [facility] jade URINALYSIS SOURCE Clean Catch [facility] COLOR yellow NORMAL: Yellow [facility] CLARITY turbid NORMAL: Clear [facility] Specific gravity of Urine by Test strip 1.030 1.001 - 1.030 [facility] pH 5 5 - 9 [facility] Glucose [Mass/volume] in Urine by Test strip NORM NORMAL: Negat [facility] Bilirubin.total [Presence] in Urine by Test strip NEG NORMAL: Negative [facility] Ketones [Presence] in Urine by Test strip 5 NORMAL: Negative A [facility] Protein [Mass/volume] in Urine by Test strip 15 NORMAL: Negat [facility] Nitrite [Presence] in Urine by Test strip NEG NORMAL: Negative [facility] BLOOD NEG NORMAL: Negative [facility] Leukocyte esterase [Presence] in Urine by Test strip NEG JOY L: Negative [facility] Urobilinogen [Mass/volume] in Urine by Test strip NOR less lorin n 1.0 mg/dL [facility] MICROSCOPIC See Below [facility] EPITHELIAL FEW NORMAL: NONE SEEN [facility] Amorphous sediment [Presence] in Urine sediment by Light victorino roscopy 3+ NORMAL: NONE SEEN [facility] Crystals [type] in Urine sediment by Light microscopy See Below [facility] CALCIUM OX Trace NORMAL: NONE SEEN [facility] ID Date Data Source [id number] 01/21/2020 07:58:00 PM EDT [facility] Name Value Range Interpretation Code Description Data Saskia rce(s) Supporting Document(s) CVE PANEL [facility] LIPID PANEL Cholesterol [Mass/volume] in Serum or Plasma 166 MG/DL 131 - 200 [facility] Deprecated Triglyceride [Mass/volume] in Serum or Plasma 223 MG/DL 3 5 - 160 H [facility] HDL 42 MG/DL 29 - 86 [facility] Cholesterol in LDL [Mass/volume] in Serum or Plasma by Direc t assay 96 mg/dL 65 - 175 [facility] Cholesterol.total/Cholesterol in HDL [Mass Ratio] in Serum o r Plasma 4.0 3.4 - 4.9 [facility] LDL/HDL 2.29 1.00 - 3.55 [facility] CVE RISK CHOL/HDL LDL/HDLMEN: 1/2 AVERAGE 3.43 1.00 AVERAGE 4.97 3.55 2X AVERAGE 9.55 6.25 3X AVERAGE 23.99 7.99WOMEN: 1/2 AVERAGE 3.27 1.47 AVERAGE 4.44 3.22 2X AVERAGE 7.05 5.03 3X AVERAGE 11.04 6.14 ID Date Data Source [id number] 01/21/2020 07:57:00 PM EDT [facility] Name Value Range Interpretation Code Description Data Saskia rce(s) Supporting Document(s) COMPREHENSIVE METABOLIC PANEL [facility] COMPREHENSIVE METABOLIC PANEL Sodium [Moles/volume] in Serum or Plasma 140 mEq/L 134 - 153 [facility] Potassium [Moles/volume] in Serum or Plasma 4.0 mEq/L 3.6 - 5.0 [facility] Chloride [Moles/volume] in Serum or Plasma 100 mEq/L 98 - 107 [facility] Carbon dioxide, total [Moles/volume] in Serum or Plasma 26 MEQ/L 22 - 30 [facility] Glucose [Mass/volume] in Serum or Plasma 111 MG/DL 65 - 110 H [facility] BUN 8 MG/DL 7 - 21 [facility] Creatinine [Mass/volume] in Serum or Plasma 0.9 MG/DL 0.7 - 1.5 [facility] BUN/CREAT 9 8 - 27 [facility] Protein [Mass/volume] in Serum or Plasma 7.8 G/DL 6.3 - 8.2 [facility] Albumin [Mass/volume] in Serum or Plasma 4.5 G/DL 3.9 - 5.0 [facility] Globulin [Mass/volume] in Serum by calculation 3.3 GM/DL 2.4 - 3.2 H [facility] A/G RATIO 1.4 0.8 - 2.0 [facility] Calcium [Mass/volume] in Serum or Plasma 9.9 MG/DL 8.4 - 10.2 [facility] Bilirubin.total [Mass/volume] in Serum or Plasma <0.7 MG/DL 0.2 - 1.3 [facility] Alkaline phosphatase [Enzymatic activity/volume] in Serum or Plasma 86 U/L 38 - 126 [facility] Aspartate aminotransferase [Enzymatic activity/volume] in Serum or Plasma 20 U/L 5 - 40 [facility] Alanine aminotransferase [Enzymatic activity/volume] in Seru m or Plasma 34 U/L 7 - 56 [facility] Anion gap 3 in Serum or Plasma 14.0 mmol/L 8.0 - 16.0 [facility] AGE 19 yrs [facility] NON-AA GFR >60 mL/min [facility] AFR AMER GFR >60 mL/min [facility] Male GFR In terprentation 20-49 yrs >60 mL/min Normal 50-59 yrs >56 mL/min Normal 60-69 yrs >49 mL/min Normal 70-79yrs >42 mL/min Normal 80 and above >35 mL/min Normal Female GFR Interpretation 20-39 yrs >60 mL/min Normal 40-49 yrs >58 mL/min Normal 50-59 yrs >51 mL/min Normal 60-69 yrs >45 mL/min Normal 70-79 yrs >39 mL/min Normal 80 and above >32 mL/min Normal ID Date Data Source [id number] 01/21/2020 07:36:00 PM EDT [facility] Name Value Range Interpretation Code Description Data Saskia rce(s) Supporting Document(s) CBC W/AUTOMATED DIFF [facility] COMPLETE BLOOD COUNT Leukocytes [#/volume] in Blood by Automated count 12.5 10^3/uL 4.2 - 11.0 H [facility] Erythrocytes [#/volume] in Blood by Automated count 6.45 10^6/uL 4. 50 - 6.30 H [facility] Hemoglobin [Mass/volume] in Blood 15.9 g/dL 14.0 - 16.0 [facility] Hematocrit [Volume Fraction] of Blood by Automated count 50.4 % 4 1.0 - 51.0 [facility] Erythrocyte mean corpuscular volume [Entitic volume] by Auto mated count 78.1 fL 80.0 - 94.0 L [facility] Erythrocyte mean corpuscular hemoglobin [Entitic mass] by Automated count 24.7 pg 27.0 - 34.0 L [facility] Erythrocyte mean corpuscular hemoglobin concentration [Mass/volume] by Automated count 31.5 g/dL 31.0 - 36.0 [facility] Erythrocyte distribution width [Ratio] by Automated count 13.3 % 11.5 - 14.8 [facility] Platelets [#/volume] in Blood by Automated count 349 10^3/uL 150 - 45 0 [facility] Platelet mean volume [Entitic volume] in Blood by Automated count 10.6 fL 7.4 - 10.4 H [facility] Neutrophils/100 leukocytes in Blood by Automated count 59.8 % 37. 0 - 80.0 [facility] Lymphocytes/100 leukocytes in Blood by Manual count 31.0 % 25.0 - 40.0 [facility] Monocytes/100 leukocytes in Blood by Automated count 6.2 % 3.0 - 8.0 [facility] Eosinophils/100 leukocytes in Blood by Automated count 2.2 % 0.0 - 7.0 [facility] Basophils/100 leukocytes in Blood by Automated count 0.4 % 0.0 - 2.0 [facility] %IG 0.4 % 0.0 - 0.0 [facility] %NRBC 0.0 % 0.0 - 0.0 [facility] Neutrophils [#/volume] in Blood by Automated count 7.49 10^3/uL 2.00 - 6.90 H [facility] Lymphocytes [#/volume] in Blood by Automated count 3.88 10^3/uL 0.60 - 3.40 H [facility] Monocytes [#/volume] in Blood by Automated count 0.78 10^3/uL 0.00 - 0.90 [facility] Eosinophils [#/volume] in Blood by Automated count 0.28 10^3/uL 0.00 - 0.70 [facility] Basophils [#/volume] in Blood by Automated count 0.05 10^3/uL 0.00 - 0.20 [facility] #IG 0.05 10^3/uL 0.00 - 0.10 [facility] #NRBC 0.00 10^3/uL 0.00 - 0.00 [facility] MANUAL DIFF NOT INDICATED [facility] RBC MORPH NOT INDICATED [facility] ID Date Data Source [id number] 11/04/2019 03:23:00 PM EDT [facility] ([facility]) Name Value Range Interpretation Code Description Data Saskia rce(s) Supporting Document(s) PDF Laboratory test result [facility] ([facility]) {DIAGNOSIS: F33.9~{MEDICATIONS/DECLARED : CYCLOBENZAPRINE, NAPROXEN, SERTRALINE,~{PRESCRIPTION I Laboratory test finding (navigational concept) Laboratory test result [facility] ([facility]) {DIAGNOSIS: F33.9~{MEDICATIONS/DECLARED : CYCLOBENZAPRINE, NAPROXEN, SERTRALINE,~{PRESCRIPTION I ID Date Data Source [id number] 11/09/2019 09:08:00 AM EDT [facility] Name Value Range Interpretation Code Description Data Saskia rce(s) Supporting Document(s) Drugs identified in Urine FINAL [facility] TOXASSURE SELECT 13 (MW) Test Result Flag Units NO DRUGS DETECTED. Rosemary t Result Flag Units Ref Range Creatinine 256 mg/dL > =20 Declared Medications: The flagging and interpretation on this report are based on the following declared medications. Unexpected results may arise from inaccuracies in the declared medications. Note: The testing scope of this panel does not include following reported medications: Acetaminophen (Tylenol) Cyclobenzaprine Naproxen Sertraline Trazodone For clinical consultation, please call . Report . [facility] ID Date Data Source [id number] 07/21/2019 10:47:00 AM EDT [facility] ([facility]) Name Value Range Interpretation Code Description Data Saskia rce(s) Supporting Document(s) Urinalysis Laboratory test result [facility] ([facility]) Is patient fasting? N {SOURCE: Random Void~.~.~F331 Source Laboratory test result [facility] ([facility]) Is patient fasting? N {SOURCE: Random Void~.~.~F331 Color Laboratory test result [facility] ([facility]) Is patient fasting? N {SOURCE: Random Void~.~.~F331 pH 6 5-9 [facility] ([facility]) Is patient fasting? N {SOURCE: Random Void~.~.~F331 Spec [place] 1.025 1.001-1.030 [facility] ([facility]) Is patient fasting? N {SOURCE: Random Void~.~.~F331 Clarity Laboratory test result [facility] ([facility]) Is patient fasting? N {SOURCE: Random Void~.~.~F331 Ketone 5 Abnormal (applies to non-numeric res ults) [facility] ([facility]) Is patient fasting? N {SOURCE: Random Void~.~.~F331 Bilirubin Laboratory test result [facility] ([facility]) Is patient fasting? N {SOURCE: Random Void~.~.~F331 Glucose Laboratory test result [facility] ([facility]) Is patient fasting? N {SOURCE: Random Void~.~.~F331 Protein 15 [facility] ([facility]) Is patient fasting? N {SOURCE: Random Void~.~.~F331 Nitrite Laboratory test result [facility] ([facility]) Is patient fasting? N {SOURCE: Random Void~.~.~F331 Leuk Est Laboratory test result [facility] ([facility]) Is patient fasting? N {SOURCE: Random Void~.~.~F331 Blood 10 Abnormal (applies to non-numeric res ults) [facility] ([facility]) Is patient fasting? N {SOURCE: Random Void~.~.~F331 Microscopic Laboratory test result M [facility] ([facility]) Is patient fasting? N {SOURCE: Random Void~.~.~F331 Urobilinogen Laboratory test result [facility] ([facility]) Is patient fasting? N {SOURCE: Random Void~.~.~F331 RBC Laboratory test result [facility] ([facility]) Is patient fasting? N {SOURCE: Random Void~.~.~F331 Crystals Laboratory test result [facility] ([facility]) Is patient fasting? N {SOURCE: Random Void~.~.~F331 Calcium Ox Laboratory test result Abnormal (applies to non -numeric results) [facility] ([facility]) Is patient fasting? N {SOURCE: Random Void~.~.~F331 ID Date Data Source [id number] 07/21/2019 10:47:00 AM EDT [facility] ([facility]) Name Value Range Interpretation Code Description Data Saskia rce(s) Supporting Document(s) Thyrotropin [Units/volume] in Serum or Plasma 2.98 uIU/mL 0.47-5.01 [facility] ([facility]) Is patient fasting? N {SOURCE: Random Void~.~.~F331 Thyroxine (T4) free [Mass/volume] in Serum or Plasma 1.38 ng/dL 0.93- 1.70 [facility] ([facility]) Is patient fasting? N {SOURCE: Random Void~.~.~F331 ID Date Data Source [id number] 07/21/2019 10:47:00 AM EDT [facility] ([facility]) Name Value Range Interpretation Code Description Data Saskia rce(s) Supporting Document(s) CBC W/Automated Diff Laboratory test result [facility] ([facility]) Is patient fasting? N {SOURCE: Random Void~.~.~F331 WBC 13.9 10^3/uL 4.2-11.0 Above high normal [facility] T ([facility]) Is patient fasting? N {SOURCE: Random Void~.~.~F331 RBC 6.00 10^6/uL 4.50-6.30 [facility] ([facility]) Is patient fasting? N {SOURCE: Random Void~.~.~F331 MCH 24.3 pg 27.0-34.0 Below low normal [facility] ( [facility]) Is patient fasting? N {SOURCE: Random Void~.~.~F331 Hematocrit 47.5 % 41.0-51.0 [facility] ([facility]) Is patient fasting? N {SOURCE: Random Void~.~.~F331 MCV 79.2 fL 80.0-94.0 Below low normal [facility] ( [facility]) Is patient fasting? N {SOURCE: Random Void~.~.~F331 Hemoglobin 14.6 g/dL 14.0-16.0 [facility] ([facility]) Is patient fasting? N {SOURCE: Random Void~.~.~F331 RDW 13.6 % 11.5-14.8 [facility] ([facility]) Is patient fasting? N {SOURCE: Random Void~.~.~F331 Platelets 387 10^3/uL 150-450 [facility] ([facility]) Is patient fasting? N {SOURCE: Random Void~.~.~F331 MCHC 30.7 g/dL 31.0-36.0 Below low normal [facility] ( [facility]) Is patient fasting? N {SOURCE: Random Void~.~.~F331 MPV 9.8 fL 7.4-10.4 [facility] ([facility]) Is patient fasting? N {SOURCE: Random Void~.~.~F331 Neut 49.7 % 37.0-80.0 [facility] ([facility]) Is patient fasting? N {SOURCE: Random Void~.~.~F331 Lymph 39.5 % 25.0-40.0 [facility] ([facility]) Is patient fasting? N {SOURCE: Random Void~.~.~F331 [place] 8.0 % 3.0-8.0 [facility] ([facility]) Is patient fasting? N {SOURCE: Random Void~.~.~F331 Baso 0.4 % 0.0-2.0 [facility] ([facility]) Is patient fasting? N {SOURCE: Random Void~.~.~F331 Eos 1.9 % 0.0-7.0 [facility] ([facility]) Is patient fasting? N {SOURCE: Random Void~.~.~F331 %Ig 0.5 % 0.0-0.0 Above high normal [facility] ([facility]) Is patient fasting? N {SOURCE: Random Void~.~.~F331 #Neut 6.89 10^3/uL 2.00-6.90 [facility] ([facility]) Is patient fasting? N {SOURCE: Random Void~.~.~F331 %NRBC 0.0 % 0.0-0.0 [facility] ([facility]) Is patient fasting? N {SOURCE: Random Void~.~.~F331 #Lymph 5.49 10^3/uL 0.60-3.40 Above high normal [facility] T ([facility]) Is patient fasting? N {SOURCE: Random Void~.~.~F331 #[place] 1.11 10^3/uL 0.00-0.90 Above high normal [facility] T ([facility]) Is patient fasting? N {SOURCE: Random Void~.~.~F331 #Eos 0.27 10^3/uL 0.00-0.70 [facility] ([facility]) Is patient fasting? N {SOURCE: Random Void~.~.~F331 #Baso 0.06 10^3/uL 0.00-0.20 [facility] ([facility]) Is patient fasting? N {SOURCE: Random Void~.~.~F331 #NRBC 0.00 10^3/uL 0.00-0.00 [facility] ([facility]) Is patient fasting? N {SOURCE: Random Void~.~.~F331 Manual Diff Laboratory test result M [facility] ([facility]) Is patient fasting? N {SOURCE: Random Void~.~.~F331 #Ig 0.07 10^3/uL 0.00-0.10 [facility] ([facility]) Is patient fasting? N {SOURCE: Random Void~.~.~F331 Band 0 % 0-5 [facility] ([facility]) Is patient fasting? N {SOURCE: Random Void~.~.~F331 %Lymph 47 % 25-40 Above high normal [facility] ([facility]) Is patient fasting? N {SOURCE: Random Void~.~.~F331 Segs 44 % 37-80 [facility] ([facility]) Is patient fasting? N {SOURCE: Random Void~.~.~F331 RBC Morph Laboratory test result [facility] ([facility]) Is patient fasting? N {SOURCE: Random Void~.~.~F331 %Eos 3 % 0-7 [facility] ([facility]) Is patient fasting? N {SOURCE: Random Void~.~.~F331 Blasts 0 % [facility] ([facility]) Is patient fasting? N {SOURCE: Random Void~.~.~F331 %[place] 6 % 3-8 [facility] ([facility]) Is patient fasting? N {SOURCE: Random Void~.~.~F331 ID Date Data Source [id number] 07/21/2019 10:47:00 AM EDT [facility] ([facility]) Name Value Range Interpretation Code Description Data Saskia rce(s) Supporting Document(s) Comprehensive [employer] Laboratory test result [facility] ([facility]) Is patient fasting? N {SOURCE: Random Void~.~.~F331 Sodium 144 meq/L 134-153 [facility] ([facility]) Is patient fasting? N {SOURCE: Random Void~.~.~F331 Chloride 104 meq/L 98-107 [facility] ([facility]) Is patient fasting? N {SOURCE: Random Void~.~.~F331 Potassium 3.9 meq/L 3.6-5.0 [facility] ([facility]) Is patient fasting? N {SOURCE: Random Void~.~.~F331 Co2 27 meq/L 22-30 [facility] ([facility]) Is patient fasting? N {SOURCE: Random Void~.~.~F331 BUN 10 mg/dL 7-21 [facility] ([facility]) Is patient fasting? N {SOURCE: Random Void~.~.~F331 Glucose 85 mg/dL 65-110 [facility] ([facility]) Is patient fasting? N {SOURCE: Random Void~.~.~F331 Creatinine 0.8 mg/dL 0.7-1.5 [facility] ([facility]) Is patient fasting? N {SOURCE: Random Void~.~.~F331 Total Protein 7.7 g/dL 6.3-8.2 [facility] ([facility]) Is patient fasting? N {SOURCE: Random Void~.~.~F331 BUN/Creat 13 8-27 [facility] ([facility]) Is patient fasting? N {SOURCE: Random Void~.~.~F331 Albumin 4.4 g/dL 3.9-5.0 [facility] ([facility]) Is patient fasting? N {SOURCE: Random Void~.~.~F331 A/G Ratio 1.3 0.8-2.0 [facility] ([facility]) Is patient fasting? N {SOURCE: Random Void~.~.~F331 Calcium 9.9 mg/dL 8.4-10.2 [facility] ([facility]) Is patient fasting? N {SOURCE: Random Void~.~.~F331 Globulin 3.3 GM/DL 2.4-3.2 Above high normal [facility] ([facility]) Is patient fasting? N {SOURCE: Random Void~.~.~F331 Sgot/Ast 41 U/L 5-40 Above high normal [facility] ([facility]) Is patient fasting? N {SOURCE: Random Void~.~.~F331 Total Bili Laboratory test result 0.2-1.3 ME [facility] ([facility]) Is patient fasting? N {SOURCE: Random Void~.~.~F331 Alkaline Phos 89 U/L 38-126 [facility] ([facility]) Is patient fasting? N {SOURCE: Random Void~.~.~F331 SGPT/Alt 79 U/L 7-56 Above high normal [facility] ([facility]) Is patient fasting? N {SOURCE: Random Void~.~.~F331 Age 18 yrs [facility] ([facility]) Is patient fasting? N {SOURCE: Random Void~.~.~F331 Anion Gap 13.0 mmol/L 8.0-16.0 [facility] ([facility]) Is patient fasting? N {SOURCE: Random Void~.~.~F331 Non-Aa GFR Laboratory test result [facility] ([facility]) Is patient fasting? N {SOURCE: Random Void~.~.~F331 Afr Amer GFR Laboratory test result [facility] ([facility]) Is patient fasting? N {SOURCE: Random Void~.~.~F331 ID Date Data Source [id number] 07/21/2019 06:37:00 PM EDT [facility] Name Value Range Interpretation Code Description Data Saskia rce(s) Supporting Document(s) [facility] S[facility] R [facility] al COLOR yellow NORMAL: Yellow [facility]ital CLARITY clear NORMAL: Clear [facility] spital Specific gravity of Urine by Test strip 1.025 1.001 - 1.030 [facility] pH 6 5 - 9 [facility] Glucose [Mass/volume] in Urine by Test strip [facility] Bilirubin.total [Presence] in Urine by Test strip NEG NORMAL: Negative [facility] Ketones [Presence] in Urine by Test strip 5 NORMAL: Negative [facility] Protein [Mass/volume] in Urine by Test strip 15 N[facility]AL[facility] Nitrite [Presence] in Urine by Test strip NEG NORMAL: Negative [facility] BLOOD 10 NORMAL: Negative [facility] Leukocyte esterase [Presence] in Urine by Test strip NEG JOY L: Negative [facility] Urobilinogen [Mass/volume] in Urine by Test strip NOR less lorin n 1.0 mg/dL [facility] MICROSCOPIC See Below [facility] Erythrocytes [#/volume] in Urine by Test strip 0 - 1 NORMAL: NON E SEEN [facility] Crystals [type] in Urine sediment by Light microscopy See Below [facility] CALCIUM OX 3+ NORMAL: NONE SEEN A [facility] ID Date Data Source [id number] 07/21/2019 05:41:00 PM EDT [facility] Name Value Range Interpretation Code Description Data Saskia rce(s) Supporting Document(s) CBC W/AUTOMATED DIFF [facility] COMPLETE BLOOD COUNT Leukocytes [#/volume] in Blood by Automated count 13.9 10^3/uL 4.2 - 11.0 H [facility] Erythrocytes [#/volume] in Blood by Automated count 6.00 10^6/uL 4. 50 - 6.30 [facility] Hemoglobin [Mass/volume] in Blood 14.6 g/dL 14.0 - 16.0 [facility] Hematocrit [Volume Fraction] of Blood by Automated count 47.5 % 4 1.0 - 51.0 [facility] Erythrocyte mean corpuscular volume [Entitic volume] by Auto mated count 79.2 fL 80.0 - 94.0 L [facility] Erythrocyte mean corpuscular hemoglobin [Entitic mass] by Automated count 24.3 pg 27.0 - 34.0 L [facility] Erythrocyte mean corpuscular hemoglobin concentration [Mass/volume] by Automated count 30.7 g/dL 31.0 - 36.0 L [facility] Erythrocyte distribution width [Ratio] by Automated count 13.6 % 11.5 - 14.8 [facility] Platelets [#/volume] in Blood by Automated count 387 10^3/uL 150 - 45 0 [facility] Platelet mean volume [Entitic volume] in Blood by Automated count 9.8 fL 7.4 - 10.4 [facility] Neutrophils/100 leukocytes in Blood by Automated count 49.7 % 37. 0 - 80.0 [facility] Lymphocytes/100 leukocytes in Blood by Manual count 39.5 % 25.0 - 40.0 [facility] Monocytes/100 leukocytes in Blood by Automated count 8.0 % 3.0 - 8.0 [facility] Eosinophils/100 leukocytes in Blood by Automated count 1.9 % 0.0 - 7.0 [facility] Basophils/100 leukocytes in Blood by Automated count 0.4 % 0.0 - 2.0 [facility] %IG 0.5 % 0.0 - 0.0 [facility] 0.0 % 0.0 - 0.0 [facility] Neutrophils [#/volume] in Blood by Automated count 6.89 10^3/uL 2.00 - 6.90 [facility] Lymphocytes [#/volume] in Blood by Automated count 5.49 10^3/uL 0.60 - 3.40 H [facility] Monocytes [#/volume] in Blood by Automated count 1.11 10^3/uL 0.00 - 0.90 [facility] Eosinophils [#/volume] in Blood by Automated count 0.27 10^3/uL 0.00 - 0.70 [facility] Basophils [#/volume] in Blood by Automated count 0.06 10^3/uL 0.00 - 0.20 [facility] #IG 0.07 10^3/uL 0.00 - 0.10 [facility] #NRBC 0.00 10^3/uL 0.00 - 0.00 [facility] MANUAL DIFF SEE BELOW [facility] ital Segmented neutrophils/100 leukocytes in Blood by Manual count 44 % 37 - 80 [facility] BAND 0 % 0 - 5 [facility] %LYMPH 47 % 25 - 40 H [facility] al %MONO 6 % 3 - 8 [facility] %EOS 3 % 0 - 7 [facility] al Blasts/100 leukocytes in Blood by Manual count 0 % [facility] RBC MORPH NOT INDICATED [facility] ID Date Data Source [id number] 07/21/2019 02:47:00 PM EDT [facility] Name Value Range Interpretation Code Description Data Saskia rce(s) Supporting Document(s) Thyroxine (T4) free index in Serum or Plasma by calculation 1.38 NG/DL 0.93 - 1.70 [facility] ID Date Data Source [id number] 07/21/2019 02:47:00 PM EDT [facility] Name Value Range Interpretation Code Description Data Saskia rce(s) Supporting Document(s) Thyrotropin [Units/volume] in Serum or Plasma by Detec tion limit <= 0.05 mIU/L 2.98 uIU/mL 0.47 - 5.01 [facility] ID Date Data Source [id number] 07/21/2019 01:56:00 PM EDT [facility] Value Range Interpretation Code Description Data Saskia rce(s) Supporting Document(s) COMPREHENSIVE METABOLIC PANEL [facility] COMPREHENSIVE METABOLIC PANEL Sodium [Moles/volume] in Serum or Plasma 144 mEq/L 134 - 153 [facility] Potassium [Moles/volume] in Serum or Plasma 3.9 mEq/L 3.6 - 5.0 [facility] Chloride [Moles/volume] in Serum or Plasma 104 mEq/L 98 - 107 [facility] Carbon dioxide, total [Moles/volume] in Serum or Plasma 27 MEQ/L 22 - 30 [facility] Glucose [Mass/volume] in Serum or Plasma 85 MG/DL 65 - 110 [facility] BUN 10 MG/DL 7 - 21 [facility] Creatinine [Mass/volume] in Serum or Plasma 0.8 MG/DL 0.7 - 1.5 [facility] BUN/CREAT 13 8 - 27 [facility] Protein [Mass/volume] in Serum or Plasma 7.7 G/DL 6.3 - 8.2 [facility] Albumin [Mass/volume] in Serum or Plasma 4.4 G/DL 3.9 - 5.0 [facility] Globulin [Mass/volume] in Serum by calculation 3.3 GM/DL 2.4 - 3.2 H [facility] A/G RATIO 1.3 0.8 - 2.0 [facility] Calcium [Mass/volume] in Serum or Plasma 9.9 MG/DL 8.4 - 10.2 [facility] Bilirubin.total [Mass/volume] in Serum or Plasma <0.7 MG/DL 0.2 - 1.3 [facility] Alkaline phosphatase [Enzymatic activity/volume] in Serum or Plasma 89 U/L 38 - 126 [facility] Aspartate aminotransferase [Enzymatic activity/volume] in Serum or Plasma 41 U/L 5 - 40 H [facility] Alanine aminotransferase [Enzymatic activity/volume] in Seru m or Plasma 79 U/L 7 - 56 H [facility] Anion gap 3 in Serum or Plasma 13.0 mmol/L 8.0 - 16.0 [facility] 18 [facility] G[facility] >60 mL/min [facility] AFR AMER GFR >60 mL/min [facility] Male GFR In terprentation 20-49 yrs >60 mL/min Normal 50-59 yrs >56 mL/min Normal 60-69 yrs >49 mL/min Normal 70-79yrs >42 mL/min Normal 80 and above >35 mL/min Normal Female GFR Interpretation 20-39 yrs >60 mL/min Normal 40-49 yrs >58 mL/min Normal 50-59 yrs >51 mL/min Normal 60-69 yrs >45 mL/min Normal 70-79 yrs >39 mL/min Normal 80 and above >32 mL/min Normal ID Date Data Source [id number] 07/14/2019 09:48:00 AM EST [facility] ([facility]) Name Value Range Interpretation Code Description Data Saskia rce(s) Supporting Document(s) Gats Culture (Neg Strep SCR) Laboratory test result Normal (applies to non- numeric results) [facility] ([facility]) FULL REPORT IN LAB NOTES ([facility] and [facility] ). NEGATIVE FOR STREP PYOGENES (GROUP A) ID Date Data Source [id number] 07/14/2019 09:48:00 AM EST [facility] ([facility]) Name Value Range Interpretation Code Description Data Saskia rce(s) Supporting Document(s) Influenza A Amplification Laboratory test result Above hig h normal [facility] ([facility]) Influenza B Amplification Laboratory test result Normal (applies to non- numeric results) [facility] ([facility]) Negative results do not preclude influen za or RSV virus infection and should not be used as the sole basis for treatment or other patient management decisions. ID Date Data Source [id number] 05/15/2019 01:25:00 PM EST [facility] ([facility]) Name Value Range Interpretation Code Description Data Saskia rce(s) Supporting Document(s) Inhouse EKG Laboratory test result M [facility] ([facility]) ID Date Data Source [id number] 05/15/2019 01:17:00 PM EST [facility] ([facility]) Name Value Range Interpretation Code Description Data Saskia rce(s) Supporting Document(s) Chest 2 Views Laboratory test result [facility] ([facility]) Procedure Vital Signs ID Date Data Source [id number] Name Value Range Interpretation Code Description Data Source(s) Body surface area Derived from formula 2.36 m2 2.36 m2 [facility] ([facility]) Body mass index (BMI) [Ratio] 36.3 kg/m2 36.3 k g/m2 [facility] ([facility]) Body height 71 [in_i] 71 [in_i] [facility] 5'11" Body weight 117.936 kg 117.936 kg [facility] ([facility]) Body weight 260.00 [lb_av] 260.00 [lb_av] [facility] ([facility]) Oxygen saturation in Arterial blood by Pulse oximetry 98 % 98 % [facility] ([facility]) Respiratory rate 16 /min 16 /min [facility] ( [facility]) Body temperature 97.8 [degF] 97.8 [degF] [facility] ([facility]) Heart rate 102 /min 102 /min [facility] ([facility]) Diastolic blood pressure 81 mm[Hg] 81 mm[Hg] [facility] ([facility]) Systolic blood pressure 136 mm[Hg] 136 mm[Hg] M [facility] ([facility]) Body surface area Derived from formula 2.36 m2 2.36 m2 [facility] ([facility]) Body mass index (BMI) [Ratio] 36.3 kg/m2 36.3 k g/m2 [facility] ([facility]) Body height 71 [in_i] 71 [in_i] [facility] ([facility]) 5'11" Body weight 117.936 kg 117.936 kg [facility] ([facility]) Body weight 260.00 [lb_av] 260.00 [lb_av] [facility] ([facility]) Oxygen saturation in Arterial blood by Pulse oximetry 97 % 97 % [facility] ([facility]) Respiratory rate 18 /min 18 /min [facility] ( [facility]) Body temperature 97.4 [degF] 97.4 [degF] [facility] Heart rate 104 /min 104 /min [facility] ([facility]) Diastolic blood pressure 88 mm[Hg] 88 mm[Hg] [facility] ([facility]) didn't take his B/P meds Systolic blood pressure 138 mm[Hg] 138 mm[Hg] M [facility] ([facility]) didn't take his B/P meds Body surface area Derived from formula 2.36 m2 2.36 m2 [facility] ([facility]) Body mass index (BMI) [Ratio] 36.4 kg/m2 36.4 k g/m2 [facility] ([facility]) Body height 71 [in_i] 71 [in_i] [facility] ([facility]) 5'11" Body weight 118.390 kg 118.390 kg [facility] ([facility]) Body weight 261.00 [lb_av] 261.00 [lb_av] [facility] ([facility]) Oxygen saturation in Arterial blood by Pulse oximetry 98 % 98 % [facility] ([facility]) Respiratory rate 16 /min 16 /min [facility] ( [facility]) Body temperature 96.4 [degF] 96.4 [degF] [facility] ([facility]) Heart rate 110 /min 110 /min [facility] ([facility]) Diastolic blood pressure 80 mm[Hg] 80 mm[Hg] [facility] ([facility]) Systolic blood pressure 118 mm[Hg] 118 mm[Hg] M [facility] ([facility]) Body surface area Derived from formula 2.33 m2 2.33 m2 [facility] ([facility], ) Body weight 114.761 kg 114.761 kg [facility] ([facility], ) [place] body weight 172 [lb_av] 172 [lb_av] [facility] ([facility], ) Body mass index (BMI) [Ratio] 35.3 kg/m2 35.3 k g/m2 [facility] ([facility], ) Body weight 253.00 [lb_av] 253.00 [lb_av] [facility] ([facility], ) Body height 71 [in_i] 71 [in_i] [facility] ([facility], ) 5'11" Oxygen saturation in Arterial blood by Pulse oximetry 95 % 95 % [facility] ([facility], ) Heart rate 83 /min 83 /min [facility] (Health system, ) Diastolic blood pressure 80 mm[Hg] 80 mm[Hg] [facility] ([facility], ) Systolic blood pressure 122 mm[Hg] 122 mm[Hg] [facility] ([facility], ) Body surface area Derived from formula 2.33 m2 2.33 m2 [facility] ([facility]) Body mass index (BMI) [Ratio] 35.5 kg/m2 35.5 k g/m2 [facility] ([facility]) Body height 71 [in_i] 71 [in_i] [facility] ([facility]) 5'11" Body weight 115.328 kg 115.328 kg [facility] ([facility]) Body weight 254.25 [lb_av] 254.25 [lb_av] [facility] ([facility]) Oxygen saturation in Arterial blood by Pulse oximetry 96 % 96 % [facility] ([facility]) Respiratory rate 16 /min 16 /min [facility] ( [facility]) Body temperature 97.9 [degF] 97.9 [degF] [facility] ([facility]) Heart rate 103 /min 103 /min [facility] ([facility]) Diastolic blood pressure 82 mm[Hg] 82 mm[Hg] [facility] ([facility]) Systolic blood pressure 118 mm[Hg] 118 mm[Hg] [facility] ([facility]) Body surface area Derived from formula 2.35 m2 2.35 m2 [facility] ([facility]) Body mass index (BMI) [Ratio] 36.0 kg/m2 36.0 k g/m2 [facility] ([facility]) Body height 71 [in_i] 71 [in_i] [facility] ([facility]) 5'11" Body weight 117.029 kg 117.029 kg [facility] ([facility]) Body weight 258.00 [lb_av] 258.00 [lb_av] [facility] ([facility]) Oxygen saturation in Arterial blood by Pulse oximetry 97 % 97 % [facility] ([facility]) Respiratory rate 18 /min 18 /min [facility] ( [facility]) Body temperature 97.6 [degF] 97.6 [degF] [facility] ([facility]) Heart rate 114 /min 114 /min [facility] ([facility]) Diastolic blood pressure 74 mm[Hg] 74 mm[Hg] [facility] ([facility]) Systolic blood pressure 140 mm[Hg] 140 mm[Hg] [facility] ([facility]) Body surface area Derived from formula 2.33 m2 2.33 m2 [facility] ([facility]) Body mass index (BMI) [Ratio] 35.1 kg/m2 35.1 k g/m2 [facility] ([facility]) Body height 71 [in_i] 71 [in_i] [facility] ([facility]) 5'11" Body weight 114.307 kg 114.307 kg [facility] Body weight 252.00 [lb_av] 252.00 [lb_av] [facility] ([facility]) Oxygen saturation in Arterial blood by Pulse oximetry 98 % 98 % [facility] ([facility]) Respiratory rate 18 /min 18 /min [facility] ( [facility]) Body temperature 97.1 [degF] 97.1 [degF] [facility] ([facility]) Heart rate 91 /min 91 /min [facility] ([facility]) Diastolic blood pressure 80 mm[Hg] 80 mm[Hg] [facility] ([facility]) Systolic blood pressure 130 mm[Hg] 130 mm[Hg] [facility] ([facility]) Body surface area 2.33 m2 2.33 m2 [facility] Body surface area 2.35 m2 2.35 m2 [facility] ([facility]) Body mass index (BMI) [Ratio] 36.1 kg/m2 36.1 k g/m2 [facility] ([facility]) Body height 71 [in_i] 71 [in_i] [facility] ([facility]) 5'11" Body weight 117.482 kg 117.482 kg [facility] ([facility]) Body weight 259.00 [lb_av] 259.00 [lb_av] [facility] ([facility]) Oxygen saturation in Arterial blood by Pulse oximetry 97 % 97 % [facility] ([facility]) Respiratory rate 18 /min 18 /min [facility] ( [facility]) Body temperature 97.6 [degF] 97.6 [degF] [facility] ([facility]) Heart rate 94 /min 94 /min [facility] ([facility]) Diastolic blood pressure 72 mm[Hg] 72 mm[Hg] [facility] ([facility]) Systolic blood pressure 118 mm[Hg] 118 mm[Hg] [facility] ([facility]) Body surface area 2.34 m2 2.34 m2 [facility] ([facility]) Body mass index (BMI) [Percentile] 99 % 9 9 % [facility] ([facility]) Body mass index (BMI) [Ratio] 35.7 kg/m2 35.7 k g/m2 [facility] ([facility]) Body height [Percentile] 69 % 69 % [facility] ([facility]) Body height 71 [in_i] 71 [in_i] [facility] ([facility]) 5'11" Body weight 116.235 kg 116.235 kg [facility] ([facility]) Body weight 256.25 [lb_av] 256.25 [lb_av] [facility] ([facility]) Oxygen saturation in Arterial blood by Pulse oximetry 96 % 96 % [facility] ([facility]) Respiratory rate 20 /min 20 /min [facility] ( [facility]) Body temperature 98.6 [degF] 98.6 [degF] [facility] ([facility]) Heart rate 105 /min 105 /min [facility] ([facility]) Diastolic blood pressure 78 mm[Hg] 78 mm[Hg] [facility] ([facility]) Systolic blood pressure 134 mm[Hg] 134 mm[Hg] [facility] ([facility]) Body surface area 2.34 m2 2.34 m2 [facility] ([facility]) Body mass index (BMI) [Percentile] 99 % 9 9 % [facility] ([facility]) Body mass index (BMI) [Ratio] 35.7 kg/m2 35.7 k g/m2 [facility] ([facility]) Body height [Percentile] 69 % 69 % [facility] ([facility]) Body height 71 [in_i] 71 [in_i] [facility] ([facility]) 5'11" Body weight 116.178 kg 116.178 kg [facility] ([facility]) Body weight 256.12 [lb_av] 256.12 [lb_av] [facility] ([facility]) Oxygen saturation in Arterial blood by Pulse oximetry 96 % 96 % [facility] ([facility]) Respiratory rate 18 /min 18 /min [facility] ( [facility]) Body temperature 98.2 [degF] 98.2 [degF] [facility] ([facility]) Oral Heart rate 93 /min 93 /min [facility] ([facility]) Diastolic blood pressure--sitting 81 mm[Hg] 81 mm[Hg] [facility] ([facility]) Systolic blood pressure--sitting 135 mm[Hg] 135 mm[Hg] [facility] ([facility]) Systolic blood pressure 140 mm[Hg] 140 mm[Hg] M [facility] ([facility]) Body surface area 2.33 m2 2.33 m2 [facility] ([facility]) Body mass index (BMI) [Percentile] 98 % 9 8 % [facility] ([facility]) Body mass index (BMI) [Ratio] 34.4 kg/m2 34.4 k g/m2 [facility] ([facility]) Body height [Percentile] 75 % 75 % [facility] ([facility]) Body height 71.5 [in_i] 71.5 [in_i] [facility] ([facility]) 5'11.50" Body weight 113.400 kg 113.400 kg [facility] ([facility]) Body weight 250.00 [lb_av] 250.00 [lb_av] [facility] ([facility]) Oxygen saturation in Arterial blood by Pulse oximetry 96 % 96 % [facility] ([facility]) Respiratory rate 18 /min 18 /min [facility] ( [facility]) Body temperature 97.1 [degF] 97.1 [degF] [facility] ([facility]) Heart rate 82 /min 82 /min [facility] ([facility]) Diastolic blood pressure 82 mm[Hg] 82 mm[Hg] [facility] ([facility]) Body surface area 2.30 m2 2.30 m2 [facility] ([facility]) Body mass index (BMI) [Percentile] 98 % 9 8 % [facility] ([facility]) Body mass index (BMI) [Ratio] 33.4 kg/m2 33.4 k g/m2 [facility] ([facility]) Body height [Percentile] 75 % 75 % [facility] ([facility]) Body height 71.5 [in_i] 71.5 [in_i] [facility] ([facility]) 5'11.50" Body weight 110.225 kg 110.225 kg [facility] ([facility]) Body weight 243.00 [lb_av] 243.00 [lb_av] [facility] ([facility]) Oxygen saturation in Arterial blood by Pulse oximetry 96 % 96 % [facility] ([facility]) Respiratory rate 16 /min 16 /min [facility] ( [facility]) Body temperature 97.7 [degF] 97.7 [degF] [facility] ([facility]) Heart rate 82 /min 82 /min [facility] ([facility]) Diastolic blood pressure 79 mm[Hg] 79 mm[Hg] [facility] ([facility]) LT Systolic blood pressure 139 mm[Hg] 139 mm[Hg] M [facility] ([facility]) LT Body height [Percentile] 75 % 75 % [facility] ([facility]) Body height 71.5 [in_i] 71.5 [in_i] [facility] ([facility]) 5'11.50" Body weight 111.132 kg 111.132 kg [facility] ([facility]) Body weight 245.00 [lb_av] 245.00 [lb_av] [facility] ([facility]) Oxygen saturation in Arterial blood by Pulse oximetry 98 % 98 % [facility] ([facility]) Respiratory rate 18 /min 18 /min [facility] ( [facility]) Body temperature 98.7 [degF] 98.7 [degF] [facility] ([facility]) Heart rate 76 /min 76 /min [facility] ([facility]) Diastolic blood pressure 72 mm[Hg] 72 mm[Hg] [facility] ([facility]) Systolic blood pressure 130 mm[Hg] 130 mm[Hg] M [facility] ([facility]) Body surface area 2.31 m2 2.31 m2 [facility] ([facility]) Body mass index (BMI) [Percentile] 98 % 9 8 % [facility] ([facility]) Body mass index (BMI) [Ratio] 33.7 kg/m2 33.7 k g/m2 [facility])
[2020-06-17] MEDS ORDERED: BUDE10.2 (15:25)
[2020-06-17 16:02] LABS: BASO # 0.1 10^3/uL (0.0-0.2); BASO % 0.6 % (0.0-1.0); EOS # 0.2 10^3/uL (0.0-0.5); EOS % 1.6 % (0.0-3.0); HEMATOCRIT 49.8 % (42.0-52.0); HEMOGLOBIN 15.6 g/dl (13.5-17.5); LYMPH # 3.5 10^3/uL (1.5-5.0); LYMPH % 26.7 % (24.0-44.0); MEAN CORPUSCULAR HEMOGLOBIN 24.6 pg (27.0-33.0); MEAN CORPUSCULAR HGB CONC 31.3 g/dl (32.0-36.5); MEAN CORPUSCULAR VOLUME 78.7 fl (80.0-96.0); MONO # 0.8 10^3/uL (0.0-0.8); NEUTROPHILS # 8.5 10^3/uL (1.5-8.5); NEUTROPHILS % 64.6 % (36.0-66.0); PLATELET COUNT, AUTOMATED 355 10^3/uL (150-450); RED BLOOD COUNT 6.33 10^6/uL (4.30-6.10); WHITE BLOOD COUNT 13.2 10^3/uL (4.0-10.0)
--- OUTSIDE RECORDS SUMMARY | 2020-06-17 16:07 | CCD ---
Author Author [facility] Organization [facility] Address Unknown Phone Unavailable Care Team Providers Care Lining Folder Name Role Phone TARI MONROY Unavailable Unavailable MEDENT_[id number], [phone] Unavailable Unavailable Douglas Siu MD Unavailable Unavailable [...] WESTLEY Unavailable Unavailable Devendra, L Mary Ellen DOCK SUPERVISOR Unavailable Unavailable Devendra, L Mary Ellen DOCK SUPERVISOR Unavailable Unavailable Devendra, L Mary Ellen DOCK SUPERVISOR Unavailable Unavailable Devendra, L Mary Ellen DOCK SUPERVISOR Unavailable Unavailable Devendra, L Mary Ellen DOCK SUPERVISOR Unavailable Unavailable Devendra, L Mary Ellen DOCK SUPERVISOR Unavailable Unavailable Devendra, L Mary Ellen DOCK SUPERVISOR Unavailable Unavailable Devendra, L Mary Ellen DOCK SUPERVISOR Unavailable Unavailable Devendra, L Mary Ellen DOCK SUPERVISOR Unavailable Unavailable Devendra, L Mary Ellen DOCK SUPERVISOR Unavailable Unavailable Devendra, L Mary Ellen DOCK SUPERVISOR Unavailable Unavailable Devendra, L Mary Ellen DOCK SUPERVISOR Unavailable Unavailable Devendra, L Mary Ellen DOCK SUPERVISOR Unavailable Unavailable Devendra, L Mary Ellen DOCK SUPERVISOR Unavailable Unavailable Devendra, L Mary Ellen DOCK SUPERVISOR Unavailable Unavailable Devendra, L Mary Ellen DOCK SUPERVISOR Unavailable Unavailable Devendra, L Mary Ellen DOCK SUPERVISOR Unavailable Unavailable Devendra, L Mary Ellen DOCK SUPERVISOR Unavailable Unavailable Devendra, L Mary Ellen DOCK SUPERVISOR Unavailable Unavailable Devendra, L Mary Ellen DOCK SUPERVISOR Unavailable Unavailable Devendra, L Mary Ellen DOCK SUPERVISOR Unavailable Unavailable Devendra, L Mary Ellen DOCK SUPERVISOR Unavailable Unavailable MOORE, MARICRUZ MD Unavailable Unavailable MOORE, MARICRUZ MD Unavailable Unavailable MOORE MARICRUZ MD Unavailable Unavailable MOORE MARICRUZ MD Unavailable Unavailable MOORE MARICURZ MD Unavailable Unavailable MOORE MARICRUZ MD Unavailable [...] R ETHAN DPM Unavailable Unavailable FORNI, R TEHAN DPM Unavailable Unavailable FORNI, R ETHAN DPM Unavailable Unavailable FORNI, R ETHAN DPM Unavailable Unavailable FORNI, R ETHAN DPM Unavailable Unavailable FORNI, R ETHAN DPM Unavailable Unavailable FORNI, R ETHAN DPM Unavailable Unavailable Devendra, L Mary Ellen DOCK SUPERVISOR Unavailable Unavailable Devendra, L Mary Ellen DOCK SUPERVISOR Unavailable Unavailable Devendra, L Mary Ellen DOCK SUPERVISOR Unavailable Unavailable Devendra, L Mary Ellen DOCK SUPERVISOR Unavailable Unavailable Devendra, L Mary Ellen DOCK SUPERVISOR Unavailable Unavailable Devendra, L Mary Ellen DOCK SUPERVISOR Unavailable Unavailable Devendra, L Mary Ellen DOCK SUPERVISOR Unavailable Unavailable Devendra, L Mary Ellen DOCK SUPERVISOR Unavailable Unavailable Devendra, L Mary Ellen DOCK SUPERVISOR Unavailable Unavailable Devendra, L Mary Ellen DOCK SUPERVISOR Unavailable Unavailable Devendra, L Mary Ellen DOCK SUPERVISOR Unavailable Unavailable Devendra, L Mary Ellen DOCK SUPERVISOR Unavailable Unavailable Devendra, L Mary Ellen DOCK SUPERVISOR Unavailable Unavailable Devendra, L Mary Ellen DOCK SUPERVISOR Unavailable Unavailable Devendra, L Mary Ellen DOCK SUPERVISOR Unavailable Unavailable Devendra, L Mary Ellen DOCK SUPERVISOR Unavailable Unavailable Devendra, L Mary Ellen DOCK SUPERVISOR Unavailable Unavailable Devendra, L Mary Ellen DOCK SUPERVISOR Unavailable Unavailable Devendra, L Mary Ellen DOCK SUPERVISOR Unavailable Unavailable Devendra, L Mary Ellen DOCK SUPERVISOR Unavailable Unavailable Devendra, L Mary Ellen DOCK SUPERVISOR Unavailable Unavailable Devendra, L Mary Ellen DOCK SUPERVISOR Unavailable Unavailable Re-disclosure Warning The records that [...] is protected by Article 27-F of the [facility] Public Health law. If you continue you may have access to information: Regarding HIV / AIDS; Provided by facilities licensed or operated by the [facility] Office of Mental Health; or Provided by the [facility] Office for People With Developmental Disabilities. If such information is present, then the following [facility] mandated warning applies: This information has [...] law may result in a fine or senior care sentence or both. A general authorization for the release of medical or other information is NOT sufficient authorization for further disc losure. Family History Family Member Name Family Member Gender Family Member Status Date o f Status Description Data Source(s) Unknown Male Problem [facility] ([facility] ) Unknown Male Problem [facility] ([facility]) Encounters Encounter Providers Location Date Indications Data Source(s ) Outpatient Attender: ETHAN ALEXIS DPM 2020 02:31:00 PM EST - 06/14/2020 02:31:00 PM [facility] Outpatient Attender: ETHAN ALEXIS DPM Family Practice 06/14/2020 0 1:30:00 PM EST [facility] ([facility]) Outpatient Attender: MARICRUZ MOORE MDConsultant: MARICRUZ Verdugo MD 06/07/2020 01:04:00 PM EST - 06/07/2020 01:04:00 PM [facility] Outpatient Attender: MARICRUZ MOORE MD 2020 12:58:00 PM EST - 05/31/2020 12:58:00 PM [facility] Outpatient Attender: MARICRUZ MOORE MD Family Practice 05/31/2020 1 2:00:00 PM EST [facility] ([facility]) Outpatient Attender: MARICRUZ MOORE MDConsultant: MARICRUZ Verdugo MD 05/27/2020 11:54:24 AM [facility] Outpatient Attender: WESTLEY RALPHConsultant: MARICRUZ MOORE MD 05/18/2020 03:00:00 PM EST - 05/18/2020 03:00:00 PM [facility] Outpatient Attender: Mary Ellen Pal NPConsultant: MARICRUZ MOORE MD 04/22/2020 03:32:00 PM EST - 04/22/2020 04:32:00 PM [facility] Outpatient Attender: MARICRUZ MOORE MDConsultant: MARICRUZ Verdugo MD 04/22/2020 03:00:00 PM EST - 04/22/2020 03:00:00 PM [facility] Outpatient Attender: WESTLEY RALPHConsultant: MARICRUZ MOORE MD 04/13/2020 02:53:00 PM EST - 04/13/2020 02:53:00 PM [facility] Outpatient Attender: Mary Ellen Cadena/Víctor/Rosas/Chantel 03/25/2020 09:00:00 AM EST MED[facility] ([facility] ) Outpatient Attender: Kerri Cortez MDConsultant: MARICRUZ MOORE MD 03/04/2020 01:40:00 PM EDT - 03/04/2020 01:40:00 PM EDT [facility] Outpatient Attender: WESTLEY Espino rer: Shmuel Siu MDConsultant: MARICRUZ MOORE MD 02/11/2020 10:56:00 AM EDT - 02/11/2020 10:56:00 AM EDT [facility] Outpatient Attender: MARICRUZ MOORE MD Family Practice 02/02/2020 0 8:20:00 AM EDT MED[facility] ([facility]) Outpatient Attender: MARICRUZ MOORE MDConsultant: MARICRUZ Verdugo MD 02/02/2020 08:19:00 AM EDT - 02/02/2020 08:19:00 AM EDT [facility] Outpatient Attender: MARICRUZ MOORE MDConsultant: MARICRUZ Verdugo MD 01/22/2020 01:58:00 PM EDT - 01/22/2020 02:58:00 PM EDT [facility] Outpatient Attender: MARICRUZ MOORE MD Family Practice 01/21/2020 0 1:20:00 PM EDT [facility] ([facility]) Outpatient Attender: MARICRUZ MOORE MD 2019 01:19:00 PM EDT - 01/21/2020 01:19:00 PM EDT [facility] Outpatient Attender: WESTLEY Geronimoant: MARICRUZ MOORE MD 01/06/2020 03:48:00 PM EDT - 01/06/2020 03:48:00 PM EDT [facility] Outpatient Attender: MARICRUZ MOORE MD Family Practice 12/08/2019 0 2:00:00 PM EDT [facility] ([facility]) Outpatient Attender: MARICRUZ MOORE MD 2019 01:55:00 PM EDT - 12/08/2019 01:55:00 PM EDT [facility] Outpatient Attender: WESTLEY Geronimoant: MARICRUZ MOORE MD 12/01/2019 03:45:00 PM EDT - 12/01/2019 03:45:00 PM EDT [facility] Outpatient Attender: WESTLEY Hernandezer: Shmuel rojas MD 11/18/2019 03:07:00 PM EDT - 11/18/2019 03:07:00 PM EDT [facility] Outpatient Attender: MARICRUZ MOORE MD [facility] 11/05/2019 0 2:20:00 PM EDT [facility] ([facility]) Outpatient Attender: MARICRUZ MOORE MDConsultant: MARICRUZ Verdugo MD 11/05/2019 01:59:00 PM EDT - 11/05/2019 01:59:00 PM EDT [facility] Outpatient Attender: GABRIEL Bella corcoran: Shmuel Siu MDConsultant: MARICRUZ MOORE MD 11/04/2019 03:09:00 PM EDT - 11/04/2019 03:09:00 PM EDT [facility] Outpatient Attender: [id number] [facility]_[id number] Family Practice 11/04/2019 03:00:00 PM EDT [facility] Outpatient Attender: WESTLEY Hernandezer: Shmuel rojas MD 11/04/2019 02:56:00 PM EDT - 11/04/2019 02:56:00 PM EDT [facility] Outpatient Attender: WESTLEY Espino rer: Shmuel Siu MDConsultant: MARICRUZ MOORE MD 10/21/2019 04:02:00 PM EDT - 10/21/2019 04:02:00 PM EDT [facility] Outpatient Attender: WESTLEY sEpino rer: Shmuel Siu MDConsultant: MARICRUZ MOORE MD 10/10/2019 01:58:00 PM EDT - 10/10/2019 01:58:00 PM EDT [facility] Outpatient Attender: WESTLEY Espino rer: Shmuel Siu MDConsultant: MARICRUZ MOORE MD 09/11/2019 01:07:00 PM EDT - 09/11/2019 01:07:00 PM EDT [facility] Outpatient Attender: TARI MONROYReferrer: Shmuel sosa MD 08/27/2019 11:15:00 AM EDT - 08/27/2019 11:15:00 AM EDT [facility] Outpatient Attender: MARICRUZ MOORE MDConsultant: MARICRUZ Verdugo MD 08/14/2019 11:51:00 AM EDT - 08/14/2019 11:51:00 AM EDT [facility] Office Visit Attender: MARICRUZ MOORE MD Family Practice 2019 10:00:00 AM EDT [facility] Outpatient Attender: MARICRUZ MOORE MD Family Practice 07/21/2019 1 0:20:00 AM EDT [facility] ([facility]) Outpatient Attender: MARICRUZ MOORE MD 2019 10:11:00 AM EDT - 07/21/2019 10:11:00 AM EDT [facility] Outpatient Attender: MARICRUZ MOORE MDConsultant: MARICRUZ Verdugo MD 05/15/2019 12:30:00 PM EST - 05/15/2019 12:30:00 PM EST [facility] Outpatient Attender: MARICRUZ MOORE MD Family Practice 05/15/2019 1 2:00:00 PM EST [facility] ([facility]) Outpatient Attender: MARICRUZ MOORE MDConsultant: MARICRUZ Verdugo MD 04/28/2019 12:53:00 PM EST - 04/28/2019 12:53:00 PM EST [facility] Outpatient Attender: MARICRUZ MOORE MD Family Practice 04/28/2019 1 2:00:00 PM EST [facility] ([facility]) Outpatient Attender: MARICRUZ MOORE MDConsultant: MARICRUZ Verdugo MD 03/27/2019 01:02:00 PM EST - 03/27/2019 01:02:00 PM [facility] Immunizations Vaccine Date Status Description Data Source(s) New in 2011. IIV4 02/02/2020 09:07:00 AM EDT completed [facility] ([facility]) Medications Medication Brand Name Start Date Product Form Dose Route Admi nistrative Instructions Pharmacy Instructions Status Indications Reaction Description Data Source(s) Atenolol 25 MG Oral Tablet Atenolol 05/31/2020 12:00:00 AM EST ORAL completed [facility] ([facility]) Trazodone Hydrochloride 100 MG Oral Tablet Trazodone HCL 04/27/2020 12:00:00 AM EST ORAL active MED[facility] ([facility]) benzonatate 100 MG Oral Capsule [Tessalon Perles] Tessalon P erles 03/04/2020 12:00:00 AM EDT ORAL completed [facility] ([facility]) Sertraline 100 MG Oral Tablet Sertraline HCL 02/02/2020 12:00:00 AM E DT ORAL active [facility] ([facility]) Ondansetron 4 MG Disintegrating Oral Tablet Ondansetron 01/21/2020 12:00:00 AM EDT completed [facility] ([facility]) Loperamide Hydrochloride 2 MG Oral Tablet [Imodium] Imodium A-D 01/21/2020 12:00:00 AM EDT ORAL active M EDENT ([facility]) Ondansetron 4 MG Oral Tablet Ondansetron HCL 07/21/2019 12:00:00 AM E DT ORAL completed [facility] ([facility]) Azithromycin 250 MG Oral Tablet Azithromycin 02/18/2019 12:00:00 AM EDT completed [facility] ([facility]) Insurance Providers Payer name Policy type / Coverage type Policy ID Covered constitution party ID Covered constitution party's relationship to moreno Policy Moreno Plan Information UNHC CP DUAL COMPL-CL[place]IC [place] [id number] 18 [id number] UNHC CP DUAL COMP [place] [id number] 18 [id number] MEDICAID [place] [id number] 18 [id number] UN COMMUNITY PLAN XIX MC [id number] 18 [id number] [facility] COMMUNTY PLAN [id number] [facility] COMMUNITY PLAN CO [id number] 18 [id number] UNHC CP DUAL COMP - RECURRING [id number] 18 [id number] WELLCARE - [place] [id number] 18 [id number] WELLCARE-CLINIC [place] [id number] 18 [id number] MEDICAID [id number] 18 [id number] WELLCARE -O/P [id number] 18 [id number] MEDICAID -O/P [id number] WELLCARE [id number] SP [id number] [id number] SP [id number] WELLCARE [place]CL[place]IC [place] [id number] 18 [id number] MEDICAID -PHYSICIAN [id number] WELLCARE [id number] 18 [id number] MEDICARE [place] [id number] 18 [id number] MEDICARE PART A -CLINIC [id number] 18 [id number] MEDICAID -CLINIC [id number] MEDICARE PART A [id number] 18 [id number] MEDICAID BH [id number] 18 [id number] [place]ARE [place] [id number] 18 [id number] MEDICAID -CLINIC [id number] MEDICARE PART A -O/P [id number] 18 [id number] [place] XIX MAN -PH[place] [id number] 18 [id number] [place] [id number] 18 [id number] UNAVAILABLE UNAVAILA BLE PHAN [id number] SP [id number] [place] [id number] S [id number] [place] XIX MAN [id number] 18 [id number] Medicaid Commercial [id number] Self [id number] [place] [id number] Self [id number] Phan Care Commercial [id number] Self [id number] [place] [id number] Self [id number] [place] [id number] 18 [id number] [place] Care Commercial [id number] Self [id number] [place] [id number] Self [id number] [place] [id number] Self [id number] [place] Care Commercial [id number] Self [id number] MEDICAID [id number] 18 [id number] [place] Medicaid/CHP/FHP Commercial [id number] Self [id number] Phan Medicaid/CHP/FHP Commercial [id number] Self [id number] MEDICAID [id number] SP [id number] Phan Medicaid/CHP/FHP Commercial [id number] Self [id number] Phan Medicaid/CHP/FHP Commercial [id number] Self [id number] [place] Medicaid/CHP/FHP Commercial [id number] Self [id number] Phan Care Commercial [id number] Self [id number] Phan Care [place] [id number] Self [id number] [place] ([facility]) Commercial [id number] Self [id number] [facility] [place]) Medicaid [id number] Self [id number] [place] ([facility]) Commercial [id number] Self [id number] MEDICAID M [id number] Phan ([facility]) Commercial [id number] Self [id number] Phan ([facility]) Commercial [id number] Self [id number] MEDICAID - CLINIC [id number] Problems, Conditions, and Diagnoses Code Display Name Description Problem Type Effective Dates Data Source(s) 116807542 Dyspnea Dyspnea Problem 03/25/2020 12:00:00 AM ES T MED[facility] ([facility], ) [id number] Cough Cough Problem 03/25/2020 12:00:00 AM ES T MED[facility] ([facility], ) [id number] Wheezing Wheezing Problem 03/25/2020 12:00:00 AM ES T MED[facility] ([facility] ) [id number] Recurrent major depressive episodes Recu rrent major depressive episodes Problem 08/27/2019 12:00:00 AM EDT [facility] ([facility]) Z0130 Encounter for examination of blood press ure without abnormal findings Encounter for examination of blood pressure without abnormal findings Diagnosis 06/07/2020 01:04:00 PM [facility] L600 Ingrowing nail Ingrowing nail Diagnosis 05/31/2020 12:58: 00 PM [facility] I10 Essential (primary) hypertension Essential (primary) h ypertension Diagnosis 05/31/2020 12:58:00 PM [facility] M549 Dorsalgia, unspecified Dorsalgia, unspecified Diagnosi s 05/28/2020 10:20:00 AM [facility] F339 Major depressive disorder, recurrent, un specified Major depressive disorder, recurrent, unspecified Diagnosis 05/18/2020 03:00:00 PM [facility] R0602 Shortness of breath Shortness of breath Diagnosis 1 06/23/2019 03:32:00 PM [facility] G4700 Insomnia, unspecified Insomnia, unspecified Diagnosis 04/22/2020 03:00:00 PM [facility] M419 Scoliosis, unspecified Scoliosis, unspecified Diagnosi s 04/22/2020 03:00:00 PM [facility] Z0000 Encounter for general adult medical exam ination without abnormal findings Encounter for general adult medical examination without abnormal findings Diagnosis 04/22/2020 03:00:00 PM [facility] F840 Autistic disorder Autistic disorder Diagnosis 04/13/2020 02:53:00 PM [facility] J209 Acute bronchitis, unspecified Acute bronchitis, unspec ified Diagnosis 03/04/2020 01:40:00 PM [facility] Z23 Encounter for immunization Encounter for immunization Diagnosis 02/02/2020 08:19:00 AM [facility] K580 Irritable bowel syndrome with diarrhea I rritable bowel syndrome with diarrhea Diagnosis 02/02/2020 08:19:00 AM [facility] R112 Nausea with vomiting, unspecified Nausea with vo miting, unspecified Diagnosis 01/21/2020 01:19:00 PM EDT [facility] R102 Pelvic and perineal pain Pelvic and perineal pain Diag nosis 01/21/2020 01:19:00 PM EDT [facility] J309 Allergic rhinitis, unspecified Allergic rhinitis, unsp ecified Diagnosis 12/08/2019 01:55:00 PM EDT [facility] P51551 Unspecified asthma, uncomplicated Unspecified as thma, uncomplicated Diagnosis 12/08/2019 01:55:00 PM EDT [facility] I781 Nevus, non-neoplastic Nevus, non-neoplastic Diagnosis 11/05/2019 01:59:00 PM EDT [facility] N489 Disorder of penis, unspecified Disorder of penis, unsp ecified Diagnosis 08/14/2019 11:51:00 AM EDT [facility] K2900 Acute gastritis without bleeding Acute gastritis without bleeding Diagnosis 07/21/2019 10:11:00 AM EDT [facility] R05 Cough Cough Diagnosis 07/21/2019 10:11:00 AM ED T [facility] F331 Major depressive disorder, recurrent, mo derate Major depressive disorder, recurrent, moderate Diagnosis 07/21/2019 10:11:00 AM T [facility] Surgeries/Procedures Procedure Description Date Indications Data Source(s) Debridement Nails Any Method 1-5 06/14/2020 12:00:00 A M EST [facility] ([facility]) Bronchospasm Evaluation 04/05/2020 12:00:00 AM EST [facility] ([facility] ) Maximum Breathing Capacity, Maximal Voluntary Ventilation 04/05/2020 12:00:00 AM EST [facility] ([facility] Plethysmography Determination Lung Volumes & Per Airway Resi st 04/05/2020 12:00:00 AM EST [facility] ([facility] ) DIFFUSING CAPACITY 04/05/2020 12:00:00 AM EST [facility] ([facility] ) Spirometry 03/25/2020 12:00:00 AM EST M [facility]ENT ([facility], ) Brief Emotional/Behav Assessment W/ Scoring Doc Per Standard Inst 12/08/2019 12:00:00 AM EDT [facility] ([facility]) Psychiatric Diagnostic Evaluation 08/27/2019 12:00:00 AM EDT [facility] ([facility]) Electrocardiogram Complete 05/15/2019 12:00:00 AM EST [facility] ([facility]) Results ID Date Data Source [id number] 04/23/2020 03:11:00 PM EST [facility] [address] [place] [address] PHONE: [phone] FAX: [phone] Name .................. : DEENA Sullivan Acct Number.................. : [id number] ROOM. ................. : Number ................... : [id number] Stay type ............. : O/P Discharge Date......... ... : 04/22/20 Admit Date ......... : 04/22/20 Admit Phys .................... : DEVENDRA MOCTEZUMA Date of ....... : 2000 Family Phys ................... : MOORE HARD Phone .................. : [phone] Age ................................ : 19 Film# .................. .:[id number] Sex ................................. : M Unsigned transcriptions are preliminary reports and do not represent a medical or legal document CHEST 2 VIEWS 57242 COMPLETE:04/22/20 19:00 [facility] [address] (REASON FOR CHEST: SHORTNESS OF BREATH CHEST [...] for: DEVENDRA MOCTEZUMA via fax Copy for: [address] [place] [address] REC Page 1 of 1 Name Value Range Interpretation Code Description Data Saskia rce(s) Supporting Document(s) ID Date Data Source [id number] 04/23/2020 03:11:00 [place] [address] PHONE: [phone] FAX: [phone] Name .................. : DEENA Sullivan Acct Number.................. : [id number] ROOM. ................. : Number ................... : [id number] Stay type ............. : CLINIC Discharge Date......... ... : 04/22/20 Admit Date ......... : 04/22/20 Admit Phys .................... : MOORE HARD Date of ....... : 2000 Family Phys ................... : MOORE HARD Phone .................. : [phone] Age ................................ : 19 Film# .................. .:[id number] Sex ................................. : M Unsigned transcriptions are preliminary reports and do not represent a medical or legal document SPINE SCOLIOSIS 1 VIEW 41451 COMPLETE:04/22/20 19:00 [facility] [address] (SPINE PROC REASON: SCOLIOSIS SCOLIOSIS SERIES: FINDINGS: [...] rce(s) Supporting Document(s) ID Date Data Source [id number] 04/23/2020 03:10:00 [place] [address] PHONE: [phone] FAX: [phone] [facility] .................. : [id number]. ................. : Number ................... : [id number] Stay type ............. : CLINIC Discharge Date......... ... : 04/22/20 Admit Date ......... : 04/22/20 Admit Phys .................... : MOORE HARD Date of ....... : 2000 Family Phys ................... : TERESA HARD Phone ... ............... : [phone] Age ................................ : 19 Film# .................. .:[id number] Sex ................................. : M Unsigned t ranscriptions are preliminary reports and do not represent a medical or legal document SPINE LS COMPLETE 55198 COMPLETE:04/22/20 19:00 [facility] [address] (SPINE PROC REASON: PAIN LUMBAR SPINE SERIES: [...] rce(s) Supporting Document(s) ID Date Data Source [id number] 04/22/2020 03:20:00 PM EST [facility] ([facility]) Name Value Range Interpretation Code Description Data Saskia rce(s) Supporting Document(s) Spine Cerv Comp-5 Or More View Laboratory test result [facility] ([facility]) Spine LS Complete Laboratory test result [facility] ([facility]) Spine Thoracic Laboratory test result [facility] ([facility]) Spine Scoliosis 1 View Laboratory test result [facility] ([facility]) ID Date Data Source [id number] 02/25/2020 12:00:00 AM EDT [facility] Name Value Range Interpretation Code Description Data Saskia rce(s) Supporting Document(s) SARS coronavirus 2 RNA [Presence] in Res piratory specimen by CORNEL with probe detection [facility] This lab was ordered by Gael Prieto and reported by [employer] [facility]. ID Date Data Source [id number] 01/23/2020 02:41:00 PM EDT [facility] [address] [place] [address] PHONE: [phone] FAX: [phone] Name .................. : DEENA Sullivan Acct Number.................. : [id number] ROOM. ................. : Number ................... : [id number] Stay type ............. : O/P Discharge Date......... ... : 01/22/20 Admit Date ......... : 01/22/20 Admit Phys .................... : M.Setek Date of ....... : 2000 Family Phys ................... : TIKI.VN HARD Phone .................. : [phone] Age ................................ : 19 Film# .................. .:[id number] Sex ................................. : M Unsigned transcriptions are preliminary reports and do not represent a medical or legal document CT ABD & PELV W/O ORAL W/O [place] [id number] COMPLETE:01/22/20 15:32 BEM [id number] (REASON FOR ABDOMEN: PELVIC AND PERINEAL PAIN, [...] and Signed By Page 1 of 2 [place] [address] PHONE: [phone] FAX: [phone] Name .................. : KUMARXochitl NOHEMY Sullivan Acct Number.................. : [id number] ROOM. ................. : MR Number ................... : [id number] Stay type ............. : O/P Discharge Date......... ... : 01/22/20 Admit Date ......... : 01/22/20 Admit Phys .................... : MOORE HARD Date of ....... : 2000 Family Phys ................... : MOORE HARD Phone .................. : [phone] Age ................................ : 19 Film# .................. .:[id number] Sex ................................. : M Unsigned transcriptions are preliminary reports and do not represent a medical or legal document CT ABD & PELV W/O ORAL W/O IV [id number] COMPLETE:01/22/20 15:32 BEM [id number] (REASON FOR ABDOMEN: PELVIC AND PERINEAL PAIN, DIARRHEA,NAUSEA,VOMITTIN Dariusz Torres MD , 01/23/20 14:41, TDS Transcribe Initials: DZ , Transcribe Date: 01/22/20 22:40, Dictation Date: Copy for: 710 MED REC Page 2 of 2 Name Value Range Interpretation Code Description Data [facility] Supporting Document(s) ID Date Data Source [id number] 01/21/2020 01:47:00 PM EDT [facility] ([facility]) Name Value Range Interpretation Code Description Data [facility] rce(s) Supporting Document(s) Cve Panel Laboratory test result [facility] ([facility]) Is patient fasting? N {SOURCE: Clean C atch~NURSE COLLECTED? N {SPECIMEN TYPE: CLEAN CATCH HDL 42 mg/dL 29- [facility] ([facility]) Is patient fasting? N {SOURCE: Clean C atch~NURSE COLLECTED? N {SPECIMEN TYPE: CLEAN CATCH Triglycerides 223 mg/dL 35-160 Above high normal MEDE NT ([facility]) Is patient fasting? N {SOURCE: Clean C atch~NURSE COLLECTED? N {SPECIMEN TYPE: CLEAN CATCH Cholesterol 166 mg/dL 131-200 [facility] ([facility]) Is patient fasting? N {SOURCE: Clean C atch~NURSE COLLECTED? N {SPECIMEN TYPE: CLEAN CATCH LDL 96 mg/dL 65-175 [facility] ([facility]) Is patient fasting? N {SOURCE: Clean C atch~NURSE COLLECTED? N {SPECIMEN TYPE: CLEAN CATCH Risk Factor 4.0 3.4-4.9 [facility] ([facility]) Is patient fasting? N {SOURCE: Clean C atch~NURSE COLLECTED? N {SPECIMEN TYPE: CLEAN CATCH LDL/HDL 2.29 1.00-3.55 [facility] ([facility]) Is patient fasting? N {SOURCE: Clean C atch~NURSE COLLECTED? N {SPECIMEN TYPE: CLEAN CATCH ID Date Data Source [id number] 01/21/2020 01:47:00 PM EDT [facility] ([facility]) Name Value Range Interpretation Code Description Data Saskia rce(s) Supporting Document(s) Comprehensive [employer] Laboratory test result [facility] ([facility]) Is patient fasting? N {SOURCE: Clean C atch~NURSE COLLECTED? N {SPECIMEN TYPE: CLEAN CATCH Sodium 140 meq/L 134-153 [facility] ([facility]) Is patient fasting? N {SOURCE: Clean C atch~NURSE COLLECTED? N {SPECIMEN TYPE: CLEAN CATCH Potassium 4.0 meq/L 3.6-5.0 [facility] ([facility]) Is patient fasting? N {SOURCE: Clean C atch~NURSE COLLECTED? N {SPECIMEN TYPE: CLEAN CATCH Glucose 111 mg/dL 65-110 Above high normal [facility] ([facility]) Is patient fasting? N {SOURCE: Clean C atch~NURSE COLLECTED? N {SPECIMEN TYPE: CLEAN CATCH Co2 26 meq/L 22-30 [facility] ([facility]) Is patient fasting? N {SOURCE: Clean C atch~NURSE COLLECTED? N {SPECIMEN TYPE: CLEAN CATCH Chloride 100 meq/L 98-107 [facility] ([facility]) Is patient fasting? N {SOURCE: Clean C atch~NURSE COLLECTED? N {SPECIMEN TYPE: CLEAN CATCH Creatinine 0.9 mg/dL 0.7-1.5 [facility] ([facility]) Is patient fasting? N {SOURCE: Clean C atch~NURSE COLLECTED? N {SPECIMEN TYPE: CLEAN CATCH BUN 8 mg/dL 7-21 [facility] ([facility]) Is patient fasting? N {SOURCE: Clean C atch~NURSE COLLECTED? N {SPECIMEN TYPE: CLEAN CATCH BUN/Creat 9 8-27 [facility] ([facility]) Is patient fasting? N {SOURCE: Clean C atch~NURSE COLLECTED? N {SPECIMEN TYPE: CLEAN CATCH Albumin 4.5 g/dL 3.9-5.0 [facility] ([facility]) Is patient fasting? N {SOURCE: Clean C atch~NURSE COLLECTED? N {SPECIMEN TYPE: CLEAN CATCH Total Protein 7.8 g/dL 6.3-8.2 [facility] ([facility]) Is patient fasting? N {SOURCE: Clean C atch~NURSE COLLECTED? N {SPECIMEN TYPE: CLEAN CATCH A/G Ratio 1.4 0.8-2.0 [facility] ([facility]) Is patient fasting? N {SOURCE: Clean C atch~NURSE COLLECTED? N {SPECIMEN TYPE: CLEAN CATCH Calcium 9.9 mg/dL 8.4-10.2 [facility] ([facility]) Is patient fasting? N {SOURCE: Clean C atch~NURSE COLLECTED? N {SPECIMEN TYPE: CLEAN CATCH Globulin 3.3 GM/DL 2.4-3.2 Above high normal [facility] ([facility]) Is patient fasting? N {SOURCE: Clean C atch~NURSE COLLECTED? N {SPECIMEN TYPE: CLEAN CATCH Alkaline Phos 86 U/L 38-126 [facility] ([facility]) Is patient fasting? N {SOURCE: Clean C atch~NURSE COLLECTED? N {SPECIMEN TYPE: CLEAN CATCH Total Bili Laboratory test result 0.2-1.3 ME DENT ([facility]) Is patient fasting? N {SOURCE: Clean C atch~NURSE COLLECTED? N {SPECIMEN TYPE: CLEAN CATCH Anion Gap 14.0 mmol/L 8.0-16.0 [facility] ([facility]) Is patient fasting? N {SOURCE: Clean C atch~NURSE COLLECTED? N {SPECIMEN TYPE: CLEAN CATCH SGPT/Alt 34 U/L 7-56 [facility] ([facility]) Is patient fasting? N {SOURCE: Clean C atch~NURSE COLLECTED? N {SPECIMEN TYPE: CLEAN CATCH Sgot/Ast 20 U/L 5-40 [facility] ([facility]) Is patient fasting? N {SOURCE: Clean C atch~NURSE COLLECTED? N {SPECIMEN TYPE: CLEAN CATCH Non-Aa GFR Laboratory test result [facility] ([facility]) Is patient fasting? N {SOURCE: Clean C atch~NURSE COLLECTED? N {SPECIMEN TYPE: CLEAN CATCH Age 19 yrs [facility] ([facility]) Is patient fasting? N {SOURCE: Clean C atch~NURSE COLLECTED? N {SPECIMEN TYPE: CLEAN CATCH Afr Amer GFR Laboratory test result [facility] ([facility]) Is patient fasting? N {SOURCE: Clean C atch~NURSE COLLECTED? N {SPECIMEN TYPE: CLEAN CATCH ID Date Data Source [id number] 01/21/2020 01:47:00 PM EDT [facility] ([facility]) Name Value Range Interpretation Code Description Data Saskia rce(s) Supporting Document(s) CBC W/Automated Diff Laboratory test result [facility] ([facility]) Is patient fasting? N {SOURCE: Clean C atch~NURSE COLLECTED? N {SPECIMEN TYPE: CLEAN CATCH WBC 12.5 10^3/uL 4.2-11.0 Above high normal [facility] T ([facility]) Is patient fasting? N {SOURCE: Clean C atch~NURSE COLLECTED? N {SPECIMEN TYPE: CLEAN CATCH RBC 6.45 10^6/uL 4.50-6.30 Above high normal [facility] T ([facility]) Is patient fasting? N {SOURCE: Clean C atch~NURSE COLLECTED? N {SPECIMEN TYPE: CLEAN CATCH Hemoglobin 15.9 g/dL 14.0-16.0 [facility] ([facility]) Is patient fasting? N {SOURCE: Clean C atch~NURSE COLLECTED? N {SPECIMEN TYPE: CLEAN CATCH Hematocrit 50.4 % 41.0-51.0 [facility] ([facility]) Is patient fasting? N {SOURCE: Clean C atch~NURSE COLLECTED? N {SPECIMEN TYPE: CLEAN CATCH MCH 24.7 pg 27.0-34.0 Below low normal [facility] ( [facility]) Is patient fasting? N {SOURCE: Clean C atch~NURSE COLLECTED? N {SPECIMEN TYPE: CLEAN CATCH MCV 78.1 fL 80.0-94.0 Below low normal [facility] ( [facility]) Is patient fasting? N {SOURCE: Clean C atch~NURSE COLLECTED? N {SPECIMEN TYPE: CLEAN CATCH RDW 13.3 % 11.5-14.8 [facility] ([facility]) Is patient fasting? N {SOURCE: Clean C atch~NURSE COLLECTED? N {SPECIMEN TYPE: CLEAN CATCH MCHC 31.5 g/dL 31.0-36.0 [facility] ([facility]) Is patient fasting? N {SOURCE: Clean C atch~NURSE COLLECTED? N {SPECIMEN TYPE: CLEAN CATCH Platelets 349 10^3/uL 150-450 [facility] ([facility]) Is patient fasting? N {SOURCE: Clean C atch~NURSE COLLECTED? N {SPECIMEN TYPE: CLEAN CATCH MPV 10.6 fL 7.4-10.4 Above high normal [facility] ([facility]) Is patient fasting? N {SOURCE: Clean C atch~NURSE COLLECTED? N {SPECIMEN TYPE: CLEAN CATCH Neut 59.8 % 37.0-80.0 [facility] ([facility]) Is patient fasting? N {SOURCE: Clean C atch~NURSE COLLECTED? N {SPECIMEN TYPE: CLEAN CATCH Lymph 31.0 % 25.0-40.0 [facility] ([facility]) Is patient fasting? N {SOURCE: Clean C atch~NURSE COLLECTED? N {SPECIMEN TYPE: CLEAN CATCH Elbert 6.2 % 3.0-8.0 [facility] ([facility]) Is patient fasting? N {SOURCE: Clean C atch~NURSE COLLECTED? N {SPECIMEN TYPE: CLEAN CATCH Eos 2.2 % 0.0-7.0 [facility] ([facility]) Is patient fasting? N {SOURCE: Clean C atch~NURSE COLLECTED? N {SPECIMEN TYPE: CLEAN CATCH %Ig 0.4 % 0.0-0.0 Above high normal [facility] ([facility]) Is patient fasting? N {SOURCE: Clean C atch~NURSE COLLECTED? N {SPECIMEN TYPE: CLEAN CATCH Baso 0.4 % 0.0-2.0 [facility] ([facility]) Is patient fasting? N {SOURCE: Clean C atch~NURSE COLLECTED? N {SPECIMEN TYPE: CLEAN CATCH #Lymph 3.88 10^3/uL 0.60-3.40 Above high normal [facility] T ([facility]) Is patient fasting? N {SOURCE: Clean C atch~NURSE COLLECTED? N {SPECIMEN TYPE: CLEAN CATCH #Neut 7.49 10^3/uL 2.00-6.90 Above high normal [facility] T ([facility]) Is patient fasting? N {SOURCE: Clean C atch~NURSE COLLECTED? N {SPECIMEN TYPE: CLEAN CATCH %NRBC 0.0 % 0.0-0.0 [facility] ([facility]) Is patient fasting? N {SOURCE: Clean C atch~NURSE COLLECTED? N {SPECIMEN TYPE: CLEAN CATCH #Eos 0.28 10^3/uL 0.00-0.70 [facility] ([facility]) Is patient fasting? N {SOURCE: Clean C atch~NURSE COLLECTED? N {SPECIMEN TYPE: CLEAN CATCH #Elbert 0.78 10^3/uL 0.00-0.90 [facility] ([facility]) Is patient fasting? N {SOURCE: Clean C atch~NURSE COLLECTED? N {SPECIMEN TYPE: CLEAN CATCH #Ig 0.05 10^3/uL 0.00-0.10 [facility] ([facility]) Is patient fasting? N {SOURCE: Clean C atch~NURSE COLLECTED? N {SPECIMEN TYPE: CLEAN CATCH #Baso 0.05 10^3/uL 0.00-0.20 [facility] ([facility]) Is patient fasting? N {SOURCE: Clean C atch~NURSE COLLECTED? N {SPECIMEN TYPE: CLEAN CATCH #NRBC 0.00 10^3/uL 0.00-0.00 [facility] ([facility]) Is patient fasting? N {SOURCE: Clean C atch~NURSE COLLECTED? N {SPECIMEN TYPE: CLEAN CATCH RBC Morph Laboratory test result [facility] ([facility]) Is patient fasting? N {SOURCE: Clean C atch~NURSE COLLECTED? N {SPECIMEN TYPE: CLEAN CATCH Manual Diff Laboratory test result M [facility] ([facility]) Is patient fasting? N {SOURCE: Clean C atch~NURSE COLLECTED? N {SPECIMEN TYPE: CLEAN CATCH ID Date Data Source [id number] 01/21/2020 01:47:00 PM EDT [facility] ([facility]) Name Value Range Interpretation Code Description Data Saskia rce(s) Supporting Document(s) Culture Urine Laboratory test result [facility] ([facility]) Is patient fasting? N {SOURCE: Clean C atch~NURSE COLLECTED? N {SPECIMEN TYPE: CLEAN CATCH ID Date Data Source [id number] 01/21/2020 01:47:00 PM EDT [facility] ([facility]) Name Value Range Interpretation Code Description Data Saskia rce(s) Supporting Document(s) Urinalysis Laboratory test result [facility] ([facility]) Is patient fasting? N {SOURCE: Clean C atch~NURSE COLLECTED? N {SPECIMEN TYPE: CLEAN CATCH Source Laboratory test result [facility] ([facility]) Is patient fasting? N {SOURCE: Clean C atch~NURSE COLLECTED? N {SPECIMEN TYPE: CLEAN CATCH Color Laboratory test result [facility] ([facility]) Is patient fasting? N {SOURCE: Clean C atch~NURSE COLLECTED? N {SPECIMEN TYPE: CLEAN CATCH Clarity Laboratory test result [facility] ([facility]) Is patient fasting? N {SOURCE: Clean C atch~NURSE COLLECTED? N {SPECIMEN TYPE: CLEAN CATCH Spec [place] 1.030 1.001-1.030 [facility] ([facility]) Is patient fasting? N {SOURCE: Clean C atch~NURSE COLLECTED? N {SPECIMEN TYPE: CLEAN CATCH pH 5 5-9 [facility] ([facility]) Is patient fasting? N {SOURCE: Clean C atch~NURSE COLLECTED? N {SPECIMEN TYPE: CLEAN CATCH Bilirubin Laboratory test result [facility] ([facility]) Is patient fasting? N {SOURCE: Clean C atch~NURSE COLLECTED? N {SPECIMEN TYPE: CLEAN CATCH Glucose Laboratory test result [facility] ([facility]) Is patient fasting? N {SOURCE: Clean C atch~NURSE COLLECTED? N {SPECIMEN TYPE: CLEAN CATCH Ketone 5 Abnormal (applies to non-numeric res ults) [facility] ([facility]) Is patient fasting? N {SOURCE: Clean C atch~NURSE COLLECTED? N {SPECIMEN TYPE: CLEAN CATCH Nitrite Laboratory test result [facility] ([facility]) Is patient fasting? N {SOURCE: Clean C atch~NURSE COLLECTED? N {SPECIMEN TYPE: CLEAN CATCH Blood Laboratory test result [facility] ([facility]) Is patient fasting? N {SOURCE: Clean C atch~NURSE COLLECTED? N {SPECIMEN TYPE: CLEAN CATCH Protein 15 [facility] ([facility]) Is patient fasting? N {SOURCE: Clean C atch~NURSE COLLECTED? N {SPECIMEN TYPE: CLEAN CATCH Urobilinogen Laboratory test result [facility] ([facility]) Is patient fasting? N {SOURCE: Clean C atch~NURSE COLLECTED? N {SPECIMEN TYPE: CLEAN CATCH Leuk Est Laboratory test result [facility] ([facility]) Is patient fasting? N {SOURCE: Clean C atch~NURSE COLLECTED? N {SPECIMEN TYPE: CLEAN CATCH Epithelial Laboratory test result [facility] ([facility]) Is patient fasting? N {SOURCE: Clean C atch~NURSE COLLECTED? N {SPECIMEN TYPE: CLEAN CATCH Microscopic Laboratory test result M [facility] ([facility]) Is patient fasting? N {SOURCE: Clean C atch~NURSE COLLECTED? N {SPECIMEN TYPE: CLEAN CATCH Amorph Sed Laboratory test result [facility] ([facility]) Is patient fasting? N {SOURCE: Clean C atch~NURSE COLLECTED? N {SPECIMEN TYPE: CLEAN CATCH Crystals Laboratory test result [facility] ([facility]) Is patient fasting? N {SOURCE: Clean C atch~NURSE COLLECTED? N {SPECIMEN TYPE: CLEAN CATCH Calcium Ox Laboratory test result [facility] ([facility]) Is patient fasting? N {SOURCE: Clean C atch~NURSE COLLECTED? N {SPECIMEN TYPE: CLEAN CATCH ID Date Data Source [id number] 01/25/2020 08:53:00 AM EDT [facility] Name Value Range Interpretation Code Description Data Saskia rce(s) Supporting Document(s) CULTURE URINE [facility] _CULTURE URINE_$$[id number]$$[id number]$$[id number]$$[id number]$$[id number]$$[id number]$$181068$$727637$$222610$$ 931719$$[id number]$$[id number]$$[id number]$$733991$$[id number]$$[id number]$$227070$$285905$$[id number]$$ 410339$$206419$$[id number]$$807363$$222081$$420813$$[id number]$$[id number] -- Continued on next page --Patient: DEENA Sullivan Order: [id number] Page 2Culture: CULTURE URINE Status: Final ==== -- Continued on next page --Patient: DEENA Sullivan Order: [id number] Page 2Culture: CULTURE URINE Status: Prelim ===== -- Continued on next page --Patient: DEENA Sullivan Order: [id number] Page 2Culture: CULTURE URINE Status: Prelim =====$$[id number]$$[id number] DATE/TIME: 01/25/2020 07:05Culture: CULTURE URINE Status: FinalUrine Culture,Comprehensive: P1No growth in 36 - 48 hours. Previous result entered on 01/24/2020 14:25 ET No growth after 18-24 hours. Previous result entered on 01/24/2020 05:40 ET No growth after 18-24 hours.P1 Test performed by: [facility] #: [id number] [address] [place] [address] [id number] [facility] [address]Medical Director : Dion Perez MD NPI #:Tube Machine Operator : 01/24/[id number].SENT REF 01/24/20.2303.XMT.SENT REF 01/25/[id number].XMT.SENT REF ID Date Data Source [id number] 01/21/2020 08:08:00 PM EDT [facility] Name Value Range Interpretation Code Description Data Saskia rce(s) Supporting Document(s) URINALYSIS [facility] URINALYSIS SOURCE Clean Catch [facility] COLOR yellow NORMAL: Yellow [facility] CLARITY turbid NORMAL: Clear [facility] Specific gravity of Urine by Test strip 1.030 1.001 - 1.030 [facility] pH 5 5 - 9 [facility] Glucose [Mass/volume] in Urine by Test strip NORM NORMAL: Negat [facility] Bilirubin.total [Presence] in Urine by Test strip NEG NORMAL: Negative [facility] Ketones [Presence] in Urine by Test strip 5 NORMAL: Negative A [facility] Protein [Mass/volume] in Urine by Test strip 15 NORMAL: Negat [facility] Nitrite [Presence] in Urine by Test strip NEG NORMAL: Negative [facility] BLOOD NEG NORMAL: Negative [facility] Leukocyte esterase [Presence] in Urine by Test strip NEG JOY L: Negative [facility] Urobilinogen [Mass/volume] in Urine by Test strip NOR less lorin n 1.0 mg/dL [facility] MICROSCOPIC See Below [facility] EPITHELIAL FEW NORMAL: NONE SEEN [facility] Amorphous sediment [Presence] in Urine sediment by Light victorino roscopy 3+ NORMAL: NONE SEEN [facility] Crystals [type] in Urine sediment by Light microscopy See Below [facility] CALCIUM OX Trace NORMAL: NONE SEEN [facility] ID Date Data Source [id number] 01/21/2020 07:58:00 PM EDT [facility] Name Value Range Interpretation Code Description Data Saskia rce(s) Supporting Document(s) CVE PANEL [facility] LIPID PANEL Cholesterol [Mass/volume] in Serum or Plasma 166 MG/DL 131 - 200 [facility] Deprecated Triglyceride [Mass/volume] in Serum or Plasma 223 MG/DL 3 5 - 160 H [facility] HDL 42 MG/DL 29 - 86 [facility] Cholesterol in LDL [Mass/volume] in Serum or Plasma by Direc t assay 96 mg/dL 65 - 175 [facility] Cholesterol.total/Cholesterol in HDL [Mass Ratio] in Serum o r Plasma 4.0 3.4 - 4.9 [facility] LDL/HDL 2.29 1.00 - 3.55 [facility] CVE RISK CHOL/HDL LDL/HDLMEN: 1/2 AVERAGE 3.43 1.00 AVERAGE 4.97 3.55 2X AVERAGE 9.55 6.25 3X AVERAGE 23.99 7.99WOMEN: 1/2 AVERAGE 3.27 1.47 AVERAGE 4.44 3.22 2X AVERAGE 7.05 5.03 3X AVERAGE 11.04 6.14 ID Date Data Source [id number] 01/21/2020 07:57:00 PM EDT [facility] Name Value Range Interpretation Code Description Data Saskia rce(s) Supporting Document(s) COMPREHENSIVE METABOLIC PANEL [facility] COMPREHENSIVE METABOLIC PANEL Sodium [Moles/volume] in Serum or Plasma 140 mEq/L 134 - 153 [facility] Potassium [Moles/volume] in Serum or Plasma 4.0 mEq/L 3.6 - 5.0 [facility] Chloride [Moles/volume] in Serum or Plasma 100 mEq/L 98 - 107 [facility] Carbon dioxide, total [Moles/volume] in Serum or Plasma 26 MEQ/L 22 - 30 [facility] Glucose [Mass/volume] in Serum or Plasma 111 MG/DL 65 - 110 H [facility] BUN 8 MG/DL 7 - 21 [facility] Creatinine [Mass/volume] in Serum or Plasma 0.9 MG/DL 0.7 - 1.5 [facility] BUN/CREAT 9 8 - 27 [facility] Protein [Mass/volume] in Serum or Plasma 7.8 G/DL 6.3 - 8.2 [facility] Albumin [Mass/volume] in Serum or Plasma 4.5 G/DL 3.9 - 5.0 [facility] Globulin [Mass/volume] in Serum by calculation 3.3 GM/DL 2.4 - 3.2 H [facility] A/G RATIO 1.4 0.8 - 2.0 [facility] Calcium [Mass/volume] in Serum or Plasma 9.9 MG/DL 8.4 - 10.2 [facility] Bilirubin.total [Mass/volume] in Serum or Plasma <0.7 MG/DL 0.2 - 1.3 [facility] Alkaline phosphatase [Enzymatic activity/volume] in Serum or Plasma 86 U/L 38 - 126 [facility] Aspartate aminotransferase [Enzymatic activity/volume] in Serum or Plasma 20 U/L 5 - 40 [facility] Alanine aminotransferase [Enzymatic activity/volume] in Seru m or Plasma 34 U/L 7 - 56 [facility] Anion gap 3 in Serum or Plasma 14.0 mmol/L 8.0 - 16.0 [facility] AGE 19 yrs [facility] NON-AA GFR >60 mL/min [facility] ital AFR AMER GFR >60 mL/min [facility] Male GFR In terprentation 20-49 [...] >32 mL/min Normal ID Date Data Source [id number] 01/21/2020 07:36:00 PM EDT [facility] Name Value Range Interpretation Code Description Data Saskia rce(s) Supporting Document(s) CBC W/AUTOMATED DIFF [facility] COMPLETE BLOOD COUNT Leukocytes [#/volume] in Blood by Automated count 12.5 10^3/uL 4.2 - 11.0 H [facility] Erythrocytes [#/volume] in Blood by Automated count 6.45 10^6/uL 4. 50 - 6.30 H [facility] Hemoglobin [Mass/volume] in Blood 15.9 g/dL 14.0 - 16.0 [facility] Hematocrit [Volume Fraction] of Blood by Automated count 50.4 % 4 1.0 - 51.0 [facility] Erythrocyte mean corpuscular volume [Entitic volume] by Auto mated count 78.1 fL 80.0 - 94.0 L [facility] Erythrocyte mean corpuscular hemoglobin [Entitic mass] by Automated count 24.7 pg 27.0 - 34.0 L [facility] Erythrocyte mean corpuscular hemoglobin concentration [Mass/volume] by Automated count 31.5 g/dL 31.0 - 36.0 [facility] Erythrocyte distribution width [Ratio] by Automated count 13.3 % 11.5 - 14.8 [facility] Platelets [#/volume] in Blood by Automated count 349 10^3/uL 150 - 45 0 [facility] Platelet mean volume [Entitic volume] in Blood by Automated count 10.6 fL 7.4 - 10.4 H [facility] Neutrophils/100 leukocytes in Blood by Automated count 59.8 % 37. 0 - 80.0 [facility] Lymphocytes/100 leukocytes in Blood by Manual count 31.0 % 25.0 - 40.0 [facility] Monocytes/100 leukocytes in Blood by Automated count 6.2 % 3.0 - 8.0 [facility] Eosinophils/100 leukocytes in Blood by Automated count 2.2 % 0.0 - 7.0 [facility] Basophils/100 leukocytes in Blood by Automated count 0.4 % 0.0 - 2.0 [facility] %IG 0.4 % 0.0 - 0.0 H [facility] %NRBC 0.0 % 0.0 - 0.0 [facility] Neutrophils [#/volume] in Blood by Automated count 7.49 10^3/uL 2.00 - 6.90 H [facility] Lymphocytes [#/volume] in Blood by Automated count 3.88 10^3/uL 0.60 - 3.40 H [facility] Monocytes [#/volume] in Blood by Automated count 0.78 10^3/uL 0.00 - 0.90 [facility] Eosinophils [#/volume] in Blood by Automated count 0.28 10^3/uL 0.00 - 0.70 [facility] Basophils [#/volume] in Blood by Automated count 0.05 10^3/uL 0.00 - 0.20 [facility] #IG 0.05 10^3/uL 0.00 - 0.10 [facility] #NRBC 0.00 10^3/uL 0.00 - 0.00 [facility] MANUAL DIFF NOT INDICATED [facility] RBC MORPH NOT INDICATED [facility] ID Date Data Source [id number] 11/04/2019 03:23:00 PM EDT [facility] ([facility]) Name Value Range Interpretation Code Description Data Saskia rce(s) Supporting Document(s) PDF Laboratory test result [facility] ([facility]) {DIAGNOSIS: F33.9~{MEDICATIONS/DECLARED : CYCLOBENZAPRINE, NAPROXEN, SERTRALINE,~{PRESCRIPTION I Laboratory test finding (navigational concept) Laboratory test result [facility] (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 Report . [facility] ID Date Data Source [id number] 07/21/2019 10:47:00 AM EDT [facility] ([facility]) Name Value Range Interpretation Code Description Data Saskia rce(s) Supporting Document(s) Urinalysis Laboratory test result [facility] ([facility]) Is patient fasting? N {SOURCE: Random Void~.~.~F331 Source Laboratory test result [facility] ([facility]) Is patient fasting? N {SOURCE: Random Void~.~.~F331 Color Laboratory test result [facility] ([facility]) Is patient fasting? N {SOURCE: Random Void~.~.~F331 pH 6 5-9 [facility] ([facility]) Is patient fasting? N {SOURCE: Random Void~.~.~F331 Spec [place] 1.025 1.001-1.030 [facility] ([facility]) Is patient fasting? N {SOURCE: Random Void~.~.~F331 Clarity Laboratory test result [facility] ([facility]) Is patient fasting? N {SOURCE: Random Void~.~.~F331 Ketone 5 Abnormal (applies to non-numeric res ults) [facility] ([facility]) Is patient fasting? N {SOURCE: Random Void~.~.~F331 Bilirubin Laboratory test result [facility] ([facility]) Is patient fasting? N {SOURCE: Random Void~.~.~F331 Glucose Laboratory test result [facility] ([facility]) Is patient fasting? N {SOURCE: Random Void~.~.~F331 Protein 15 [facility] ([facility]) Is patient fasting? N {SOURCE: Random Void~.~.~F331 Nitrite Laboratory test result [facility] ([facility]) Is patient fasting? N {SOURCE: Random Void~.~.~F331 Leuk Est Laboratory test result [facility] ([facility]) Is patient fasting? N {SOURCE: Random Void~.~.~F331 Blood 10 Abnormal (applies to non-numeric res ults) [facility] ([facility]) Is patient fasting? N {SOURCE: Random Void~.~.~F331 Microscopic Laboratory test result M [facility] ([facility]) Is patient fasting? N {SOURCE: Random Void~.~.~F331 Urobilinogen Laboratory test result [facility] ([facility]) Is patient fasting? N {SOURCE: Random Void~.~.~F331 RBC Laboratory test result [facility] ([facility]) Is patient fasting? N {SOURCE: Random Void~.~.~F331 Crystals Laboratory test result [facility] ([facility]) Is patient fasting? N {SOURCE: Random Void~.~.~F331 Calcium Ox Laboratory test result Abnormal (applies to non -numeric results) [facility] ([facility]) Is patient fasting? N {SOURCE: Random Void~.~.~F331 ID Date Data Source [id number] 07/21/2019 10:47:00 AM EDT [facility] ([facility]) Name Value Range Interpretation Code Description Data Saskia rce(s) Supporting Document(s) Thyrotropin [Units/volume] in Serum or Plasma 2.98 uIU/mL 0.47-5.01 [facility] ([facility]) Is patient fasting? N {SOURCE: Random Void~.~.~F331 Thyroxine (T4) free [Mass/volume] in Serum or Plasma 1.38 ng/dL 0.93- 1.70 [facility] ([facility]) Is patient fasting? N {SOURCE: Random Void~.~.~F331 ID Date Data Source [id number] 07/21/2019 10:47:00 AM EDT [facility] ([facility]) Name Value Range Interpretation Code Description Data Saskia rce(s) Supporting Document(s) CBC W/Automated Diff Laboratory test result [facility] ([facility]) Is patient fasting? N {SOURCE: Random Void~.~.~F331 WBC 13.9 10^3/uL 4.2-11.0 Above high normal [facility] T ([facility]) Is patient fasting? N {SOURCE: Random Void~.~.~F331 RBC 6.00 10^6/uL 4.50-6.30 [facility] ([facility]) Is patient fasting? N {SOURCE: Random Void~.~.~F331 MCH 24.3 pg 27.0-34.0 Below low normal [facility] ( [facility]) Is patient fasting? N {SOURCE: Random Void~.~.~F331 Hematocrit 47.5 % 41.0-51.0 [facility] ([facility]) Is patient fasting? N {SOURCE: Random Void~.~.~F331 MCV 79.2 fL 80.0-94.0 Below low normal [facility] ( [facility]) Is patient fasting? N {SOURCE: Random Void~.~.~F331 Hemoglobin 14.6 g/dL 14.0-16.0 [facility] ([facility]) Is patient fasting? N {SOURCE: Random Void~.~.~F331 RDW 13.6 % 11.5-14.8 [facility] ([facility]) Is patient fasting? N {SOURCE: Random Void~.~.~F331 Platelets 387 10^3/uL 150-450 [facility] ([facility]) Is patient fasting? N {SOURCE: Random Void~.~.~F331 MCHC 30.7 g/dL 31.0-36.0 Below low normal [facility] ( [facility]) Is patient fasting? N {SOURCE: Random Void~.~.~F331 MPV 9.8 fL 7.4-10.4 [facility] ([facility]) Is patient fasting? N {SOURCE: Random Void~.~.~F331 Neut 49.7 % 37.0-80.0 [facility] ([facility]) Is patient fasting? N {SOURCE: Random Void~.~.~F331 Lymph 39.5 % 25.0-40.0 [facility] ([facility]) Is patient fasting? N {SOURCE: Random Void~.~.~F331 Elbert 8.0 % 3.0-8.0 [facility] ([facility]) Is patient fasting? N {SOURCE: Random Void~.~.~F331 Baso 0.4 % 0.0-2.0 [facility] ([facility]) Is patient fasting? N {SOURCE: Random Void~.~.~F331 Eos 1.9 % 0.0-7.0 [facility] ([facility]) Is patient fasting? N {SOURCE: Random Void~.~.~F331 %Ig 0.5 % 0.0-0.0 Above high normal [facility] ([facility]) Is patient fasting? N {SOURCE: Random Void~.~.~F331 #Neut 6.89 10^3/uL 2.00-6.90 [facility] ([facility]) Is patient fasting? N {SOURCE: Random Void~.~.~F331 %NRBC 0.0 % 0.0-0.0 [facility] ([facility]) Is patient fasting? N {SOURCE: Random Void~.~.~F331 #Lymph 5.49 10^3/uL 0.60-3.40 Above high normal [facility] T ([facility]) Is patient fasting? N {SOURCE: Random Void~.~.~F331 #Elbert 1.11 10^3/uL 0.00-0.90 Above high normal [facility] ([facility]) Is patient fasting? N {SOURCE: Random Void~.~.~F331 #Eos 0.27 10^3/uL 0.00-0.70 [facility] ([facility]) Is patient fasting? N {SOURCE: Random Void~.~.~F331 #Baso 0.06 10^3/uL 0.00-0.20 [facility] ([facility]) Is patient fasting? N {SOURCE: Random Void~.~.~F331 #NRBC 0.00 10^3/uL 0.00-0.00 [facility] ([facility]) Is patient fasting? N {SOURCE: Random Void~.~.~F331 Manual Diff Laboratory test result M [facility] ([facility]) Is patient fasting? N {SOURCE: Random Void~.~.~F331 #Ig 0.07 10^3/uL 0.00-0.10 [facility] ([facility]) Is patient fasting? N {SOURCE: Random Void~.~.~F331 Band 0 % 0-5 [facility] ([facility]) Is patient fasting? N {SOURCE: Random Void~.~.~F331 %Lymph 47 % 25-40 Above high normal [facility] ([facility]) Is patient fasting? N {SOURCE: Random Void~.~.~F331 Segs 44 % 37-80 [facility] ([facility]) Is patient fasting? N {SOURCE: Random Void~.~.~F331 RBC Morph Laboratory test result [facility] ([facility]) Is patient fasting? N {SOURCE: Random Void~.~.~F331 %Eos 3 % 0-7 [facility] ([facility]) Is patient fasting? N {SOURCE: Random Void~.~.~F331 Blasts 0 % [facility] ([facility]) Is patient fasting? N {SOURCE: Random Void~.~.~F331 %Elbert 6 % 3-8 [facility] ([facility]) Is patient fasting? N {SOURCE: Random Void~.~.~F331 ID Date Data Source [id number] 07/21/2019 10:47:00 AM EDT [facility] ([facility]) Name Value Range Interpretation Code Description Data Saskia rce(s) Supporting Document(s) Comprehensive [employer] Laboratory test result [facility] ([facility]) Is patient fasting? N {SOURCE: Random Void~.~.~F331 Sodium 144 meq/L 134-153 [facility] ([facility]) Is patient fasting? N {SOURCE: Random Void~.~.~F331 Chloride 104 meq/L 98-107 [facility] ([facility]) Is patient fasting? N {SOURCE: Random Void~.~.~F331 Potassium 3.9 meq/L 3.6-5.0 [facility] ([facility]) Is patient fasting? N {SOURCE: Random Void~.~.~F331 Co2 27 meq/L 22-30 [facility] ([facility]) Is patient fasting? N {SOURCE: Random Void~.~.~F331 BUN 10 mg/dL 7-21 [facility] ([facility]) Is patient fasting? N {SOURCE: Random Void~.~.~F331 Glucose 85 mg/dL 65-110 [facility] ([facility]) Is patient fasting? N {SOURCE: Random Void~.~.~F331 Creatinine 0.8 mg/dL 0.7-1.5 [facility] ([facility]) Is patient fasting? N {SOURCE: Random Void~.~.~F331 Total Protein 7.7 g/dL 6.3-8.2 [facility] ([facility]) Is patient fasting? N {SOURCE: Random Void~.~.~F331 BUN/Creat 13 8-27 [facility] ([facility]) Is patient fasting? N {SOURCE: Random Void~.~.~F331 Albumin 4.4 g/dL 3.9-5.0 [facility] ([facility]) Is patient fasting? N {SOURCE: Random Void~.~.~F331 A/G Ratio 1.3 0.8-2.0 [facility] ([facility]) Is patient fasting? N {SOURCE: Random Void~.~.~F331 Calcium 9.9 mg/dL 8.4-10.2 [facility] ([facility]) Is patient fasting? N {SOURCE: Random Void~.~.~F331 Globulin 3.3 GM/DL 2.4-3.2 Above high normal [facility] ([facility]) Is patient fasting? N {SOURCE: Random Void~.~.~F331 Sgot/Ast 41 U/L 5-40 Above high normal [facility] ([facility]) Is patient fasting? N {SOURCE: Random Void~.~.~F331 Total Bili Laboratory test result 0.2-1.3 ME [facility] ([facility]) Is patient fasting? N {SOURCE: Random Void~.~.~F331 Alkaline Phos 89 U/L 38-126 [facility] ([facility]) Is patient fasting? N {SOURCE: Random Void~.~.~F331 SGPT/Alt 79 U/L 7-56 Above high normal [facility] ([facility]) Is patient fasting? N {SOURCE: Random Void~.~.~F331 Age 18 yrs [facility] ([facility]) Is patient fasting? N {SOURCE: Random Void~.~.~F331 Anion Gap 13.0 mmol/L 8.0-16.0 [facility] ([facility]) Is patient fasting? N {SOURCE: Random Void~.~.~F331 Non-Aa GFR Laboratory test result [facility] ([facility]) Is patient fasting? N {SOURCE: Random Void~.~.~F331 Afr Amer GFR Laboratory test result [facility] ([facility]) Is patient fasting? N {SOURCE: Random Void~.~.~F331 ID Date Data Source [id number] 07/21/2019 06:37:00 PM EDT [facility] Name Value Range Interpretation Code Description Data Saskia rce(s) Supporting Document(s) UR[facility]IS [facility] URINALYSIS SOURCE R [facility] al COLOR yellow NORMAL: Yellow [facility] ospital CLARITY clear NORMAL: Clear [facility] spital Specific gravity of Urine by Test strip 1.025 1.001 - 1.030 [facility] pH 6 5 - 9 [facility] Glucose [Mass/volume] in Urine by Test strip [facility] Bilirubin.total [Presence] in Urine by Test strip NEG NORMAL: Negative [facility] Ketones [Presence] in Urine by Test strip 5 NORMAL: Negative [facility] Protein [Mass/volume] in Urine by Test strip [facility] Nitrite [Presence] in Urine by Test strip NEG NORMAL: Negative [facility] BLOOD 10 NORMAL: Negative [facility] Leukocyte esterase [Presence] in Urine by Test strip NEG JOY L: Negative [facility] Urobilinogen [Mass/volume] in Urine by Test strip NOR less lorin n 1.0 mg/dL [facility] MICROSCOPIC See Below [facility] Erythrocytes [#/volume] in Urine by Test strip 0 - 1 NORMAL: NON E SEEN [facility] Crystals [type] in Urine sediment by Light microscopy See Below [facility] CALCIUM OX 3+ NORMAL: NONE SEEN A [facility] ID Date Data Source [id number] 07/21/2019 05:41:00 PM EDT [facility] Name Value Range Interpretation Code Description Data Saskia rce(s) Supporting Document(s) CBC W/AUTOMATED DIFF [facility] COMPLETE BLOOD COUNT Leukocytes [#/volume] in Blood by Automated count 13.9 10^3/uL 4.2 - 11.0 H [facility] Erythrocytes [#/volume] in Blood by Automated count 6.00 10^6/uL 4. 50 - 6.30 [facility] Hemoglobin [Mass/volume] in Blood 14.6 g/dL 14.0 - 16.0 [facility] Hematocrit [Volume Fraction] of Blood by Automated count 47.5 % 4 1.0 - 51.0 [facility] Erythrocyte mean corpuscular volume [Entitic volume] by Auto mated count 79.2 fL 80.0 - 94.0 L [facility] Erythrocyte mean corpuscular hemoglobin [Entitic mass] by Automated count 24.3 pg 27.0 - 34.0 L [facility] Erythrocyte mean corpuscular hemoglobin concentration [Mass/volume] by Automated count 30.7 g/dL 31.0 - 36.0 L [facility] Erythrocyte distribution width [Ratio] by Automated count 13.6 % 11.5 - 14.8 [facility] Platelets [#/volume] in Blood by Automated count 387 10^3/uL 150 - 45 0 [facility] Platelet mean volume [Entitic volume] in Blood by Automated count 9.8 fL 7.4 - 10.4 [facility] Neutrophils/100 leukocytes in Blood by Automated count 49.7 % 37. 0 - 80.0 [facility] Lymphocytes/100 leukocytes in Blood by Manual count 39.5 % 25.0 - 40.0 [facility] Monocytes/100 leukocytes in Blood by Automated count 8.0 % 3.0 - 8.0 [facility] Eosinophils/100 leukocytes in Blood by Automated count 1.9 % 0.0 - 7.0 [facility] Basophils/100 leukocytes in Blood by Automated count 0.4 % 0.0 - 2.0 [facility] %IG 0.5 % 0.0 - 0.0 H [facility] %NRBC 0.0 % 0.0 - 0.0 [facility] Neutrophils [#/volume] in Blood by Automated count 6.89 10^3/uL 2.00 - 6.90 [facility] Lymphocytes [#/volume] in Blood by Automated count 5.49 10^3/uL 0.60 - 3.40 H [facility] Monocytes [#/volume] in Blood by Automated count 1.11 10^3/uL 0.00 - 0.90 H [facility] Eosinophils [#/volume] in Blood by Automated count 0.27 10^3/uL 0.00 - 0.70 [facility] Basophils [#/volume] in Blood by Automated count 0.06 10^3/uL 0.00 - 0.20 [facility] #IG 0.07 10^3/uL 0.00 - 0.10 [facility] #NRBC 0.00 10^3/uL 0.00 - 0.00 [facility] MANUAL DIFF SEE BELOW [facility] Segmented neutrophils/100 leukocytes in Blood by Manual count 44 % 37 - 80 [facility] BAND 0 % 0 - 5 [facility] %LYMPH 47 % 25 - 40 H [facility] %MONO 6 % 3 - 8 [facility] %EOS 3 % 0 - 7 [facility] Blasts/100 leukocytes in Blood by Manual count 0 % [facility] RBC MORPH NOT INDICATED [facility] ID Date Data Source [id number] 07/21/2019 02:47:00 PM EDT [facility] Name Value Range Interpretation Code Description Data Saskia rce(s) Supporting Document(s) Thyroxine (T4) free index in Serum or Plasma by calculation 1.38 NG/DL 0.93 - 1.70 [facility] ID Date Data Source [id number] 07/21/2019 02:47:00 PM EDT [facility] Name Value Range Interpretation Code Description Data Saskia rce(s) Supporting Document(s) Thyrotropin [Units/volume] in Serum or Plasma by Detec tion limit <= 0.05 mIU/L 2.98 uIU/mL 0.47 - 5.01 [facility] ID Date Data Source [id number] 07/21/2019 01:56:00 PM EDT [facility] Value Range Interpretation Code Description Data Saskia rce(s) Supporting Document(s) COMPREHENSIVE METABOLIC PANEL [facility] COMPREHENSIVE METABOLIC PANEL Sodium [Moles/volume] in Serum or Plasma 144 mEq/L 134 - 153 [facility] Potassium [Moles/volume] in Serum or Plasma 3.9 mEq/L 3.6 - 5.0 [facility] Chloride [Moles/volume] in Serum or Plasma 104 mEq/L 98 - 107 [facility] Carbon dioxide, total [Moles/volume] in Serum or Plasma 27 MEQ/L 22 - 30 [facility] Glucose [Mass/volume] in Serum or Plasma 85 MG/DL 65 - 110 [facility] BUN 10 MG/DL 7 - 21 [facility] al Creatinine [Mass/volume] in Serum or Plasma 0.8 MG/DL 0.7 - 1.5 [facility] BUN/CREAT 13 8 - 27 [facility] Protein [Mass/volume] in Serum or Plasma 7.7 G/DL 6.3 - 8.2 [facility] Albumin [Mass/volume] in Serum or Plasma 4.4 G/DL 3.9 - 5.0 [facility] Globulin [Mass/volume] in Serum by calculation 3.3 GM/DL 2.4 - 3.2 H [facility] A/G RATIO 1.3 0.8 - 2.0 [facility] Calcium [Mass/volume] in Serum or Plasma 9.9 MG/DL 8.4 - 10.2 [facility] Bilirubin.total [Mass/volume] in Serum or Plasma <0.7 MG/DL 0.2 - 1.3 [facility] Alkaline phosphatase [Enzymatic activity/volume] in Serum or Plasma 89 U/L 38 - 126 [facility] Aspartate aminotransferase [Enzymatic activity/volume] in Serum or Plasma 41 U/L 5 - 40 H [facility] Alanine aminotransferase [Enzymatic activity/volume] in Seru m or Plasma 79 U/L 7 - 56 H [facility] Anion gap 3 in Serum or Plasma 13.0 mmol/L 8.0 - 16.0 [facility]GE 18 [facility] NON-AA GFR >60 mL/min [facility] ital AFR AMER GFR >60 mL/min [facility] Male GFR In terprentation 20-49 [...] >32 mL/min Normal ID Date Data Source [id number] 07/14/2019 09:48:00 AM EST [facility] ([facility]) Name Value Range Interpretation Code Description Data Saskia rce(s) Supporting Document(s) Gats Culture (Neg Strep SCR) Laboratory test result Normal (applies to non- numeric results) [facility] ([facility]) FULL REPORT IN LAB NOTES ([facility] and [facility] ). NEGATIVE FOR STREP PYOGENES (GROUP A) ID Date Data Source [id number] 07/14/2019 09:48:00 AM EST [facility] ([facility]) Name Value Range Interpretation Code Description Data Saskia rce(s) Supporting Document(s) Influenza A Amplification Laboratory test result Above hig h normal [facility] ([facility]) Influenza B Amplification Laboratory test result Normal (applies to non- numeric results) [facility] ([facility]) Negative results do not preclude influen za or RSV virus infection and should not be used as the sole basis for treatment or other patient management decisions. ID Date Data Source [id number] 05/15/2019 01:25:00 PM EST [facility] ([facility]) Name Value Range Interpretation Code Description Data Saskia rce(s) Supporting Document(s) Inhouse EKG Laboratory test result M [facility] ([facility]) ID Date Data Source [id number] 05/15/2019 01:17:00 PM EST [facility] ([facility]) Name Value Range Interpretation Code Description Data Saskia rce(s) Supporting Document(s) Chest 2 Views [facility] Procedure Vital Signs ID Date Data Source UNK Name Value Range Interpretation Code Description Data Source(s) Body surface area Derived from formula 2.36 m2 2.36 m2 [facility] ([facility]) Body mass index (BMI) [Ratio] 36.3 kg/m2 36.3 k g/m2 [facility] ([facility]) Body height 71 [in_i] 71 [in_i] [facility] 5'11" Body weight 117.936 kg 117.936 kg [facility] ([facility]) Body weight 260.00 [lb_av] 260.00 [lb_av] [facility] ([facility]) Oxygen saturation in Arterial blood by Pulse oximetry 98 % 98 % [facility] ([facility]) Respiratory rate 16 /min 16 /min [facility] ( [facility]) Body temperature 97.8 [degF] 97.8 [degF] [facility] ([facility]) Heart rate 102 /min 102 /min [facility] ([facility]) Diastolic blood pressure 81 mm[Hg] 81 mm[Hg] [facility] ([facility]) Systolic blood pressure 136 mm[Hg] 136 mm[Hg] M [facility] ([facility]) Body surface area Derived from formula 2.36 m2 2.36 m2 [facility] ([facility]) Body mass index (BMI) [Ratio] 36.3 kg/m2 36.3 k g/m2 [facility] ([facility]) Body height 71 [in_i] 71 [in_i] [facility] ([facility]) 5'11" Body weight 117.936 kg 117.936 kg [facility] ([facility]) Body weight 260.00 [lb_av] 260.00 [lb_av] [facility] ([facility]) Oxygen saturation in Arterial blood by Pulse oximetry 97 % 97 % [facility] ([facility]) Respiratory rate 18 /min 18 /min [facility] ( [facility]) Body temperature 97.4 [degF] 97.4 [degF] [facility] Heart rate 104 /min 104 /min [facility] ([facility]) Diastolic blood pressure 88 mm[Hg] 88 mm[Hg] [facility] ([facility]) didn't take his B/P meds Systolic blood pressure 138 mm[Hg] 138 mm[Hg] M [facility] ([facility]) didn't take his B/P meds Body surface area Derived from formula 2.36 m2 2.36 m2 [facility] Body mass index (BMI) [Ratio] 36.4 kg/m2 36.4 k g/m2 [facility] ([facility]) Body height 71 [in_i] 71 [in_i] [facility] ([facility]) 5'11" Body weight 118.390 kg 118.390 kg [facility] ([facility]) Body weight 261.00 [lb_av] 261.00 [lb_av] [facility] ([facility]) Oxygen saturation in Arterial blood by Pulse oximetry 98 % 98 % [facility] Respiratory rate 16 /min 16 /min [facility] ( [facility]) Body temperature 96.4 [degF] 96.4 [degF] [facility] ([facility]) Heart rate 110 /min 110 /min [facility] ([facility]) Diastolic blood pressure 80 mm[Hg] 80 mm[Hg] [facility] ([facility]) Systolic blood pressure 118 mm[Hg] 118 mm[Hg] M [facility] ([facility]) Body surface area Derived from formula 2.33 m2 2.33 m2 [facility] Body weight 114.761 kg 114.761 kg [facility] ([facility], ) [place] body weight 172 [lb_av] 172 [lb_av] [facility] ([facility], ) Body mass index (BMI) [Ratio] 35.3 kg/m2 35.3 k g/m2 [facility] Body weight 253.00 [lb_av] 253.00 [lb_av] [facility] ([facility], ) Body height 71 [in_i] 71 [in_i] [facility] ([facility], ) 5'11" Oxygen saturation in Arterial blood by Pulse oximetry 95 % 95 % [facility] ([facility], ) Heart rate 83 /min 83 /min [facility], [facility] Diastolic blood pressure 80 mm[Hg] 80 mm[Hg] [facility] ([facility], ) Systolic blood pressure 122 mm[Hg] 122 mm[Hg] M [facility], [facility] Body surface area Derived from formula 2.33 m2 2.33 m2 [facility] Body mass index (BMI) [Ratio] 35.5 kg/m2 35.5 k g/m2 [facility] ([facility]) Body height 71 [in_i] 71 [in_i] [facility] ([facility]) 5'11" Body weight 115.328 kg 115.328 kg [facility] ([facility]) Body weight 254.25 [lb_av] 254.25 [lb_av] [facility] ([facility]) Oxygen saturation in Arterial blood by Pulse oximetry 96 % 96 % [facility] ([facility]) Respiratory rate 16 /min 16 /min [facility] ( [facility]) Body temperature 97.9 [degF] 97.9 [degF] [facility] Heart rate 103 /min 103 /min [facility] ([facility]) Diastolic blood pressure 82 mm[Hg] 82 mm[Hg] [facility] ([facility]) Systolic blood pressure 118 mm[Hg] 118 mm[Hg] [facility] ([facility]) Body surface area Derived from formula 2.35 m2 2.35 m2 [facility] ([facility]) Body mass index (BMI) [Ratio] 36.0 kg/m2 36.0 k g/m2 [facility] ([facility]) Body height 71 [in_i] 71 [in_i] [facility] ([facility]) 5'11" Body weight 117.029 kg 117.029 kg [facility] ([facility]) Body weight 258.00 [lb_av] 258.00 [lb_av] [facility] ([facility]) Oxygen saturation in Arterial blood by Pulse oximetry 97 % 97 % [facility] ([facility]) Respiratory rate 18 /min 18 /min [facility] ( [facility]) Body temperature 97.6 [degF] 97.6 [degF] [facility] ([facility]) Heart rate 114 /min 114 /min [facility] Diastolic blood pressure 74 mm[Hg] 74 mm[Hg] [facility] ([facility]) Systolic blood pressure 140 mm[Hg] 140 mm[Hg] [facility] ([facility]) Body surface area Derived from formula 2.33 m2 2.33 m2 [facility] ([facility]) Body mass index (BMI) [Ratio] 35.1 kg/m2 35.1 k g/m2 [facility] ([facility]) Body height 71 [in_i] 71 [in_i] [facility] ([facility]) 5'11" Body weight 114.307 kg 114.307 kg [facility] Body weight 252.00 [lb_av] 252.00 [lb_av] [facility] ([facility]) Oxygen saturation in Arterial blood by Pulse oximetry 98 % 98 % [facility] ([facility]) Respiratory rate 18 /min 18 /min [facility] Body temperature 97.1 [degF] 97.1 [degF] [facility] ([facility]) Heart rate 91 /min 91 /min [facility] ([facility]) Diastolic blood pressure 80 mm[Hg] 80 mm[Hg] [facility] ([facility]) Systolic blood pressure 130 mm[Hg] 130 mm[Hg] [facility] ([facility]) Body surface area 2.33 m2 2.33 m2 [facility] Body surface area 2.35 m2 2.35 m2 [facility] ([facility]) Body mass index (BMI) [Ratio] 36.1 kg/m2 36.1 k g/m2 [facility] ([facility]) Body height 71 [in_i] 71 [in_i] [facility] 5'11" Body weight 117.482 kg 117.482 kg [facility] ([facility]) Body weight 259.00 [lb_av] 259.00 [lb_av] [facility] ([facility]) Oxygen saturation in Arterial blood by Pulse oximetry 97 % 97 % [facility] Respiratory rate 18 /min 18 /min [facility] Body temperature 97.6 [degF] 97.6 [degF] [facility] ([facility]) Heart rate 94 /min 94 /min [facility] Diastolic blood pressure 72 mm[Hg] 72 mm[Hg] [facility]) Systolic blood pressure 118 mm[Hg] 118 mm[Hg] [facility] ([facility]) Body surface area 2.34 m2 2.34 m2 [facility] ([facility]) Body mass index (BMI) [Percentile] 99 % 9 9 % [facility] ([facility]) Body mass index (BMI) [Ratio] 35.7 kg/m2 35.7 k g/m2 [facility] ([facility]) Body height [Percentile] 69 % 69 % [facility] ([facility]) Body height 71 [in_i] 71 [in_i] [facility] ([facility]) 5'11" Body weight 116.235 kg 116.235 kg [facility] ([facility]) Body weight 256.25 [lb_av] 256.25 [lb_av] [facility] ([facility]) Oxygen saturation in Arterial blood by Pulse oximetry 96 % 96 % [facility]) Respiratory rate 20 /min 20 /min [facility] Body temperature 98.6 [degF] 98.6 [degF] [facility]) Heart rate 105 /min 105 /min [facility] Diastolic blood pressure 78 mm[Hg] 78 mm[Hg] [facility] ([facility]) Systolic blood pressure 134 mm[Hg] 134 mm[Hg] [facility] ([facility]) Body surface area 2.34 m2 2.34 m2 [facility] Body mass index (BMI) [Percentile] 99 % 9 9 % [facility] Body mass index (BMI) [Ratio] 35.7 kg/m2 35.7 k g/m2 [facility] ([facility]) Body height [Percentile] 69 % 69 % [facility] ([facility]) Body height 71 [in_i] 71 [in_i] [facility] ([facility]) 5'11" Body weight 116.178 kg 116.178 kg [facility] ([facility]) Body weight 256.12 [lb_av] 256.12 [lb_av] [facility] ([facility]) Oxygen saturation in Arterial blood by Pulse oximetry 96 % 96 % [facility] ([facility]) Respiratory rate 18 /min 18 /min [facility] ( [facility]) Body temperature 98.2 [degF] 98.2 [degF] [facility] ([facility]) Oral Heart rate 93 /min 93 /min [facility] ([facility]) Diastolic blood pressure--sitting 81 mm[Hg] 81 mm[Hg] [facility] ([facility]) Systolic blood pressure--sitting 135 mm[Hg] 135 mm[Hg] [facility] ([facility]) Systolic blood pressure 140 mm[Hg] 140 mm[Hg] M [facility] ([facility]) Body surface area 2.33 m2 2.33 m2 [facility] ([facility]) Body mass index (BMI) [Percentile] 98 % 9 8 % [facility] ([facility]) Body mass index (BMI) [Ratio] 34.4 kg/m2 34.4 k g/m2 [facility] ([facility]) Body height [Percentile] 75 % 75 % [facility] ([facility]) Body height 71.5 [in_i] 71.5 [in_i] [facility] ([facility]) 5'11.50" Body weight 113.400 kg 113.400 kg [facility] ([facility]) Body weight 250.00 [lb_av] 250.00 [lb_av] [facility] ([facility]) Oxygen saturation in Arterial blood by Pulse oximetry 96 % 96 % [facility] ([facility]) Respiratory rate 18 /min 18 /min [facility] Body temperature 97.1 [degF] 97.1 [degF] [facility] ([facility]) Heart rate 82 /min 82 /min [facility] ([facility]) Diastolic blood pressure 82 mm[Hg] 82 mm[Hg] [facility] ([facility]) Body surface area 2.30 m2 2.30 m2 [facility] ([facility]) Body mass index (BMI) [Percentile] 98 % 9 8 % [facility] ([facility]) Body mass index (BMI) [Ratio] 33.4 kg/m2 33.4 k g/m2 [facility] ([facility]) Body height [Percentile] 75 % 75 % [facility] ([facility]) Body height 71.5 [in_i] 71.5 [in_i] [facility] ([facility]) 5'11.50" Body weight 110.225 kg 110.225 kg [facility] ([facility]) Body weight 243.00 [lb_av] 243.00 [lb_av] [facility] ([facility]) Oxygen saturation in Arterial blood by Pulse oximetry 96 % 96 % [facility] ([facility]) Respiratory rate 16 /min 16 /min [facility] ( [facility]) Body temperature 97.7 [degF] 97.7 [degF] [facility] ([facility]) Heart rate 82 /min 82 /min [facility] ([facility]) Diastolic blood pressure 79 mm[Hg] 79 mm[Hg] [facility] ([facility]) LT Systolic blood pressure 139 mm[Hg] 139 mm[Hg] M [facility] ([facility]) LT Body height [Percentile] 75 % 75 % [facility] ([facility]) Body height 71.5 [in_i] 71.5 [in_i] [facility] ([facility]) 5'11.50" Body weight 111.132 kg 111.132 kg [facility] ([facility]) Body weight 245.00 [lb_av] 245.00 [lb_av] [facility] ([facility]) Oxygen saturation in Arterial blood by Pulse oximetry 98 % 98 % [facility] ([facility]) Respiratory rate 18 /min 18 /min [facility] ( [facility]) Body temperature 98.7 [degF] 98.7 [degF] [facility] ([facility]) Heart rate 76 /min 76 /min [facility] ([facility]) Diastolic blood pressure 72 mm[Hg] 72 mm[Hg] [facility] ([facility]) Systolic blood pressure 130 mm[Hg] 130 mm[Hg] M [facility] ([facility]) Body surface area 2.31 m2 2.31 m2 [facility] ([facility]) Body mass index (BMI) [Percentile] 98 % 9 8 % [facility] ([facility]) Body mass index (BMI) [Ratio] 33.7 kg/m2 33.7 k g/m2 [facility])
[2020-06-17 16:30] LABS: ALBUMIN 3.8 GM/DL (3.2-5.2); ALT/SGPT 75 U/L (12-78); BILIRUBIN,DIRECT 0.1 MG/DL (0.0-0.2); BILIRUBIN,TOTAL 0.2 MG/DL (0.2-1.0); BLOOD UREA NITROGEN 11 MG/DL (7-18); CALCIUM LEVEL 9.9 MG/DL (8.5-10.1); CARBON DIOXIDE LEVEL 25 MEQ/L (21-32); CHLORIDE LEVEL 106 MEQ/L (98-107); CREATININE FOR GFR 0.86 MG/DL (0.70-1.30); GLUCOSE, FASTING 104 MG/DL (70-100); SODIUM LEVEL 140 MEQ/L (136-145); TOTAL PROTEIN 8.1 GM/DL (6.4-8.2)
[2020-06-17 17:08] LABS: APPEARANCE, URINE CLEAR (CLEAR); BACTERIA, URINE AUTO NEGATIVE (NEGATIVE); BILIRUBIN, URINE AUTO NEGATIVE (NEGATIVE); BLOOD, URINE BLOOD NEGATIVE (NEGATIVE); COLOR, URINE YELLOW (YELLOW); GLUCOSE, URINE (UA) AUTO NEGATIVE (NEGATIVE); KETONE, URINE AUTO NEGATIVE (NEGATIVE); LEUKOCYTE ESTERASE, URINE AUTO NEGATIVE (NEGATIVE); MUCUS, URINE SMALL (NEGATIVE); NITRITE, URINE AUTO NEGATIVE (NEGATIVE); PROTEIN, URINE AUTO NEGATIVE (NEGATIVE); RBC, URINE AUTO 0 /HPF (0-3); SPECIFIC GRAVITY URINE AUTO 1.025 (1.002-1.035); SQUAMOUS EPITHELIAL CELL UR AU 0 /HPF (0-6); UROBILINOGEN, URINE AUTO 0.2 mg/dL (0.0-2.0); WBC, URINE AUTO 1 /HPF (0-3)
[2020-06-17 17:24] VITALS: BP 130/90
--- NOTE | 2020-06-17 21:06 | ECGEPIP ---
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
== END 2020-06-17 17:32 | disposition home or self-care (01) ==
LOC: M ED 15:01
DX: I10 Essential (primary) hypertension (principal); F32.89 Other specified depressive episodes; R00.0 Tachycardia, unspecified; F84.0 Autistic disorder

== ENCOUNTER → 2020-07-22 | Outpatient (CLI) | payer MEDICARE, MEDICAID ==
[~2020-07-22] MED LIST changes: +BUDE10.2; +FLOV100A; -FLOV100A3
[2020-07-22 12:22] LABS: FREE T4 1.08 NG/DL (0.78-1.33); THYROID STIMULATING HORMONE 3.68 uIU/ML (0.463-3.98)
== END ==
LOC: M LAB 10:29
PROVIDERS: ATTEND Internal Medicine Gastroenterology
DX: R11.2 Nausea with vomiting, unspecified (principal); Z79.899 Other long term (current) drug therapy

== ENCOUNTER → 2020-09-05 | Outpatient (CLI) | payer MEDICARE, MEDICAID ==
[~2020-09-05] MED LIST changes: +ATEN25TA; +NAPR-885; +SYMB16INH
== END ==
LOC: M LABSMTC 09:49
PROVIDERS: ATTEND Anesthesiology
DX: Z01.812 Encounter for preprocedural laboratory examination (principal); Z20.822 Contact with and (suspected) exposure to COVID-19

== ENCOUNTER → 2020-09-08 | Outpatient (REF) | payer MEDICARE, MEDICAID | LOC: M LAB REF 16:46 | PROVIDERS: ATTEND Internal Medicine Gastroenterology | DX: R11.2 Nausea with vomiting, unspecified (principal) ==

== ENCOUNTER 2020-09-10 13:04 | Day surgery (SDC) | payer MEDICARE, MEDICAID ==
[~2020-09-10] VITALS: Ht 180.3 cm; Wt 118.4 kg
[~2020-09-10 13:04] MED LIST changes: +NS 1,000 ML IV ONE
[2020-09-10] MEDS ORDERED: fentaNYL 100 MCG/2 ML INJECTION (J3010) As Ordered ONE (13:08)
[2020-09-10] MEDS ORDERED: LIDOCAINE 2% 100MG/5ML SDV (FOR ANES.) As Ordered ONE (14:32)
[2020-09-10] MEDS ORDERED: propofoL 200 MG/20 ML VIAL As Ordered ONE (14:32)
--- NOTE | 2020-09-10 14:40 | ROOR ---
Patient Name: Giovanny Guardado Procedure Date: 09/10/2020 2:21 PM Date of : 2000 Age: 19 Room: [facility] Gender: Male Note Status: Finalized Procedure: Upper GI endoscopy Indications: Epigastric abdominal pain, Diarrhea, Nausea Providers: Bryon GOLDEN MD Referring MD: MARICRUZ MOORE MD Requesting Provider: Medicines: Monitored Anesthesia Care Complications: No immediate complications. Procedure: Pre-Anesthesia Assessment: - The heart rate, respiratory rate, oxygen saturations, blood pressure, adequacy of pulmonary ventilation, and response to care were monitored throughout the procedure. The Endoscope was introduced through the mouth, and advanced to the second part of duodenum. The upper GI endoscopy was accomplished without difficulty. The patient tolerated the procedure well. Findings: The esophagus was normal. The stomach was normal. The examined duodenum was normal. Biopsies for histology were taken with a cold forceps in the second portion of the duodenum for evaluation of celiac disease. Biopsies were taken with a cold forceps in the gastric antrum for Helicobacter pylori testing. Impression: - Normal esophagus. - Normal stomach. - Normal examined duodenum. - Biopsies were taken with a cold forceps for evaluation of celiac disease. - Biopsies were taken with a cold forceps for Helicobacter pylori testing. Recommendation: - Observe patient's clinical course. - Continue present medications. - Telephone endoscopist for pathology results in 2 weeks. Procedure Code(s): --- Professional --- 22125, Esophagogastroduodenoscopy, flexible, transoral; with biopsy, single or multiple Diagnosis Code(s): --- Professional --- R11.0, Nausea R19.7, Diarrhea, unspecified R10.13, Epigastric pain CPT copyright 2019 [employer]. All rights reserved. The codes documented in this report are preliminary and upon thermodynamics teacher review may be revised to meet current compliance requirements. Bryon Golden MD Bryon GOLDEN MD 09/10/2020 2:40:19 PM Electronically signed by Bryon GOLDEN MD Number of Addenda: 0 Note Initiated On: 09/10/2020 2:21 PM Estimated Blood Loss: Estimated blood loss: none.
--- NOTE | 2020-09-10 14:56 | ROOR ---
Patient Name: Giovanny Guardado Procedure Date: 09/10/2020 2:21 PM Date of : 2000 Age: 19 Room: [facility] Gender: Male Note Status: Finalized Procedure: Colonoscopy Indications: Generalized abdominal pain, Irritable bowel syndrome with diarrhea, Diarrhea Providers: Bryon GOLDEN MD Referring MD: MARICRUZ MOORE MD Requesting Provider: Medicines: Monitored Anesthesia Care Complications: No immediate complications. Procedure: Pre-Anesthesia Assessment: - The heart rate, respiratory rate, oxygen saturations, blood pressure, adequacy of pulmonary ventilation, and response to care were monitored throughout the procedure. The Colonoscope was introduced through the anus and advanced to 10 cm into the ileum. The colonoscopy was performed without difficulty. The patient tolerated the procedure well. The quality of the bowel preparation was good. Findings: The perianal and digital rectal examinations were normal. Small Internal Hemorrhoids. The entire examined colon appeared normal on direct and retroflexion views. The terminal ileum appeared normal. Biopsies for histology were taken with a cold forceps for evaluation of microscopic colitis. Impression: - Small Internal Hemorrhoids. - The entire colon is normal on direct and retroflexion views. - The examined portion of the ileum was normal. - Biopsies were taken with a cold forceps for evaluation of microscopic colitis. Recommendation: - Telephone endoscopist for pathology results in 2 weeks. - Use Bentyl (dicyclomine) 20 mg PO QID 30 min AC. (as needed) Procedure Code(s): --- Professional --- 30584, Colonoscopy, flexible; with biopsy, single or multiple Diagnosis Code(s): --- Professional --- R19.7, Diarrhea, unspecified K58.0, Irritable bowel syndrome with diarrhea R10.84, Generalized abdominal pain CPT copyright 2019 [employer]. All rights reserved. The codes documented in this report are preliminary and upon dental scheduler review may be revised to meet current compliance requirements. Bryon Golden MD Bryon GOLDEN MD 09/10/2020 2:56:34 PM Electronically signed by Bryon GOLDEN MD Number of Addenda: 0 Note Initiated On: 09/10/2020 2:21 PM Estimated Blood Loss: Estimated blood loss: none.
[2020-09-10 15:20] VITALS: BP 115/71
== END 2020-09-10 15:21 | disposition home or self-care (01) ==
LOC: M OPP 13:04
PROVIDERS: ATTEND Internal Medicine Gastroenterology
DX: K58.0 Irritable bowel syndrome with diarrhea (principal); R10.84 Generalized abdominal pain; K20.90 Esophagitis, unspecified without bleeding; R10.13 Epigastric pain; F84.5 Asperger's syndrome; Z79.899 Other long term (current) drug therapy
CPT/HCPCS: 43239; 45380; 88305; J3010

== ENCOUNTER → 2020-11-12 | Outpatient (CLI) | payer MEDICARE, MEDICAID ==
[~2020-11-12] MED LIST changes: -NS 1,000 ML IV ONE
--- NOTE | 2020-11-16 16:14 | SLEEPCENT ---
NOCTURNAL POLYSOMNOGRAPHY DATE: ORDERED BY: Mary Ellen Pal NP Nocturnal polysomnography was performed for evaluation of sleep physiology in this patient with excessive somnolence and nonrestorative sleep. 7 hours and 49 minutes of data were reviewed. There were 368.5 minutes of sleep identified. Sleep latency was prolonged at 74.5 minutes. REM latency was prolonged at 211.5 minutes. Sleep architecture showed poor progression. There was one REM period late in the study. Overall sleep efficiency was 80%. The electrocardiogram showed a sinus rhythm with an average heart rate of 80 beats per minute; rate range 60 to 100. EEG showed normal waveforms for wake and sleep. There were 69 respiratory events identified of 10 seconds in duration or greater for an apnea-hypopnea index of 11.2. The events were primarily obstructive, not exclusive to sleep stage nor body posture. Arousals from respiratory events occurred 1.3 times per hour and oxygen desaturations were seen into the 80s. There was some activity in the limb leads, but limb movement arousal index was only 4.6. IMPRESSION: Obstructive sleep apnea syndrome (G47.33), apnea-hypopnea index 11.2. RECOMMENDATION: The patient should be encouraged to return to [facility]. In the interim, alcohol and sedative avoidance should be practiced and caution exercised during the operation of motor vehicles.
== END ==
LOC: M SLEEP 20:00
PROVIDERS: ATTEND Nurse Practitioner Adult Health
DX: G47.30 Sleep apnea, unspecified (principal)

== ENCOUNTER → 2021-01-13 | Outpatient (CLI) | payer MEDICARE, MEDICAID ==
--- NOTE | 2021-01-18 18:05 | SLEEPCENT ---
DATE: 01/13/2021 ORDERED BY: Mary Ellen Pal Nocturnal polysomnography was performed for the titration of pressure therapy in this patient with obstructive sleep apnea syndrome, apnea-hypopnea index 11.2. For testing, a ResMed Quattro full-face mask of small size was used. There was 4 cm of water pressure applied to the circuit, and the lights were extinguished. There was 7 hours and 3 minutes of data reviewed. There was 390 minutes of sleep identified. Sleep latency was short at 6.5 minutes. REM latency was normal at 113 minutes. Sleep architecture was good with four REM cycles. Overall sleep efficiency was 93.5%. The electrocardiogram showed a sinus rhythm with an average heart rate of 70 beats per minute. EEG showed normal waveforms for wake and sleep. Respiratory events were fully palliated with CPAP at a pressure of 8. Remaining measures of sleep physiology were normal. IMPRESSION: Obstructive sleep apnea syndrome (G47.33). RECOMMENDATION: Nightly use of pressure therapy, 8 cm of water.
== END ==
LOC: M SLEEP 20:00
PROVIDERS: ATTEND Nurse Practitioner Adult Health
DX: G47.33 Obstructive sleep apnea (adult) (pediatric) (principal)

== ENCOUNTER → 2021-02-08 | Outpatient (CLI) | payer MEDICARE, MEDICAID ==
[~2021-02-08] MED LIST changes: +GASTROGRAFIN SOLUTION 30ML (Q9963) As Ordered ONE; +ISOVUE-370 76% 100ML VIAL As Ordered ONE
--- NOTE | 2021-02-08 16:45 | REPVR ---
PROCEDURE INFORMATION: Exam: CT Neck With Contrast Exam date and time: 02/08/2021 4:09 PM Age: 20 years old Clinical indication: Other: Leukocystosis TECHNIQUE: Imaging protocol: Computed tomography images of the neck with contrast. Radiation optimization: All CT scans at this facility use at least one of these dose optimization techniques: automated exposure control; mA and/or kV adjustment per patient size (includes targeted exams where dose is matched to clinical indication); or iterative reconstruction. Contrast material: ISOVUE 370; Contrast volume: 100 ml; Contrast route: INTRAVENOUS (IV); COMPARISON: CR SPINE,CERV-3 VIEW TO CLEAR 02/10/2019 8:27 AM FINDINGS: Nasopharynx: Unremarkable. Oropharynx: Unremarkable. No significant tonsillar enlargement. Hypopharynx: Unremarkable. Larynx: Unremarkable. Normal epiglottis. Retropharyngeal space: Unremarkable. Submandibular/Parotid glands: Normal. Glands are normal in size. Thyroid: Normal. No enlarged or calcified nodules. Lymph nodes: There are small nonspecific cervical lymph nodes measuring less than 10 mm in short axis.. No significant enlarged lymph nodes. Trachea: Visualized trachea is unremarkable. Lungs: Unremarkable as visualized. Bones/joints: Unremarkable. No acute fracture. Soft tissues: Unremarkable. No significant soft tissue swelling. IMPRESSION: No acute findings Electronically signed by: Mihir Frey On 02/08/2021 16:45:08 PM
--- NOTE | 2021-02-08 16:46 | REP ---
INDICATION: LEUKOCYSTOSIS COMPARISON: None. TECHNIQUE: Standard helical technique after the intravenous administration of 100 cc Isovue 370 FINDINGS: There is no mediastinal or hilar adenopathy. There are no pleural or pericardial effusions. The imaged osseous structures are within normal limits. Evaluation of the lung avitia show no abnormal nodules, masses, or opacities. IMPRESSION: CT examination the chest is within normal limits. <Electronically signed by Jacob Geller > 02/08/21 [id number]
--- NOTE | 2021-02-08 16:49 | REP ---
INDICATION: LEUKOCYSTOSIS. COMPARISON: 03/05/2011 the only prior TECHNIQUE: Standard helical technique after the intravenous administration of 100 cc Isovue 370 and oral bowel preparatory contrast administration FINDINGS: There is diffuse low density seen throughout the hepatic parenchyma consistent with fatty infiltration of the liver. There are no enhancing hepatic masses. The gallbladder, spleen, pancreas, adrenal glands, and kidneys are within normal limits. The abdominal aorta and para-aortic regions are within normal limits. The bowel loops and the mesenteries are within normal limits. There is no evidence of a mass or adenopathy. There is no free fluid or free air. Bone window technique throughout the examination shows the osseous structures to be within normal limits. IMPRESSION: Hepatomegaly and fatty infiltration of the liver. <Electronically signed by Jacob Geller > 02/08/21 [id number]
== END ==
LOC: M RAD 14:02
PROVIDERS: ATTEND Internal Medicine Medical Oncology
DX: D72.829 Elevated white blood cell count, unspecified (principal)
CPT/HCPCS: 70491; 71260; 74177; Q9963; Q9967

== ENCOUNTER → 2021-05-31 | Outpatient (CLI) | payer MEDICARE, MEDICAID ==
[~2021-05-31] MED LIST changes: -ATEN25TA; +ATEN25TA PO; -GASTROGRAFIN SOLUTION 30ML (Q9963) As Ordered ONE; -ISOVUE-370 76% 100ML VIAL As Ordered ONE
== END ==
LOC: M SLEEP 20:00
PROVIDERS: ATTEND Nurse Practitioner Adult Health
DX: G47.33 Obstructive sleep apnea (adult) (pediatric) (principal)

== ENCOUNTER 2021-09-03 06:22 | Emergency (ER) | payer MEDICARE, MEDICAID ==
[~2021-09-03] VITALS: Ht 180.3 cm; Wt 100.0 kg
[~2021-09-03 06:22] MED LIST changes: +CIPR-250 PO; +DOXY-350 PO; +OMEP-173
[2021-09-03 06:59] LABS: BASO # 0.1 10^3/uL (0.0-0.2); BASO % 0.5 % (0.0-1.0); EOS # 0.3 10^3/uL (0.0-0.5); EOS % 2.6 % (0.0-3.0); HEMATOCRIT 46.5 % (42.0-52.0); HEMOGLOBIN 14.6 g/dl (13.5-17.5); LYMPH # 4.5 10^3/uL (1.5-5.0); LYMPH % 34.3 % (24.0-44.0); MEAN CORPUSCULAR HEMOGLOBIN 25.5 pg (27.0-33.0); MEAN CORPUSCULAR HGB CONC 31.4 g/dl (32.0-36.5); MEAN CORPUSCULAR VOLUME 81.3 fl (80.0-96.0); MONO % 7.7 % (2.0-8.0); NEUTROPHILS # 7.1 10^3/uL (1.5-8.5); NEUTROPHILS % 54.6 % (36.0-66.0); PLATELET COUNT, AUTOMATED 372 10^3/uL (150-450); RED BLOOD COUNT 5.72 10^6/uL (4.30-6.10)
[2021-09-03 07:27] LABS: BLOOD UREA NITROGEN 11 MG/DL (7-18); CALCIUM LEVEL 9.6 MG/DL (8.5-10.1); CARBON DIOXIDE LEVEL 25 MEQ/L (21-32); CHLORIDE LEVEL 111 MEQ/L (98-107); CREATININE FOR GFR 0.79 MG/DL (0.70-1.30); GLOMERULAR FILTRATION RATE > 60.0 (>60); GLUCOSE, FASTING 104 MG/DL (70-100); MAGNESIUM LEVEL 2.2 MG/DL (1.8-2.4); POTASSIUM SERUM 4.4 MEQ/L (3.5-5.1); SODIUM LEVEL 143 MEQ/L (136-145)
[2021-09-03 07:32] LABS: CK-MB VALUE MASS < 1.0 NG/ML (<3.6); CPK CREATINE PHOSPHOKINASE 114 U/L (39-308); MB/CK RELATIVE INDEX 0.88 (< OR =4)
[2021-09-03] MEDS ORDERED: methocarbamoL 750 MG TAB PO ONE (08:15)
[2021-09-03] MEDS ORDERED: KETOROLAC 30 MG/ML 1ML VIAL IV ONE (08:15)
[2021-09-03] MEDS ORDERED: KETOROLAC 60MG 2ML VIAL IM ONE (08:30)
[2021-09-03 09:30] VITALS: BP 137/90
[2021-09-03] MEDS ORDERED: NAPR-885 PO (09:40)
== END 2021-09-03 10:30 | disposition home or self-care (01) ==
LOC: M ED 06:22
DX: M94.0 Chondrocostal junction syndrome [Tietze] (principal); I10 Essential (primary) hypertension; J45.909 Unspecified asthma, uncomplicated; F33.9 Major depressive disorder, recurrent, unspecified; G47.33 Obstructive sleep apnea (adult) (pediatric); K21.9 Gastro-esophageal reflux disease without esophagitis; Z79.899 Other long term (current) drug therapy
CPT/HCPCS: 36415; 71045; 80048; 82550; 82553; 83735; 84484; 85025; 85379; 93005; 99284; J1885

== ENCOUNTER → 2021-11-17 | Outpatient (CLI) | payer MEDICARE, MEDICAID ==
[~2021-11-17] MED LIST changes: +ERGO500029; +MELA10CA6 PO; +MONT10TA97; +NAPR-885 PO
[2021-11-17 14:18] LABS: ALBUMIN 3.7 GM/DL (3.2-5.2); BILIRUBIN,DIRECT 0.1 MG/DL (0.0-0.2); BILIRUBIN,TOTAL 0.4 MG/DL (0.2-1.0); TOTAL PROTEIN 7.5 GM/DL (6.4-8.2)
== END ==
LOC: M PLALAB 11:57
PROVIDERS: ATTEND Student in an Organized Health Care Education/Training Program
DX: K76.0 Fatty (change of) liver, not elsewhere classified (principal); R94.5 Abnormal results of liver function studies; R12 Heartburn

== ENCOUNTER 2021-12-25 21:55 | Emergency (ER) | payer MEDICARE, MEDICAID ==
[~2021-12-25] VITALS: Ht 180.3 cm; Wt 120.8 kg
[2021-12-25 21:56] VITALS: BP 139/82
[2021-12-26] MEDS ORDERED: CEPHALEXIN 500 MG CAP PO ONE (01:20)
[2021-12-26] MEDS ORDERED: CEPH500C PO (01:20)
== END 2021-12-26 01:32 | disposition home or self-care (01) ==
LOC: M ED 21:55
DX: L03.116 Cellulitis of left lower limb (principal); I10 Essential (primary) hypertension; J45.909 Unspecified asthma, uncomplicated; Z79.899 Other long term (current) drug therapy

== ENCOUNTER 2022-01-25 | Emergency (ER) | payer MEDICARE, MEDICAID ==
[~2022-01-25] VITALS: Ht 180.3 cm; Wt 119.7 kg
[~2022-01-25] MED LIST changes: +CEPH500C PO
[2022-01-25] MEDS ORDERED: VENTAER INH (00:36)
[2022-01-25 01:40] LABS: BASO # 0.1 10^3/uL (0.0-0.2); BASO % 0.3 % (0.0-1.0); EOS # 0.1 10^3/uL (0.0-0.5); EOS % 0.7 % (0.0-3.0); HEMATOCRIT 45.8 % (42.0-52.0); HEMOGLOBIN 14.4 g/dl (13.5-17.5); LYMPH # 4.2 10^3/uL (1.5-5.0); LYMPH % 23.3 % (24.0-44.0); MEAN CORPUSCULAR HGB CONC 31.4 g/dl (32.0-36.5); MEAN CORPUSCULAR VOLUME 79.4 fl (80.0-96.0); MONO # 1.3 10^3/uL (0.0-0.8); NEUTROPHILS # 12.3 10^3/uL (1.5-8.5); NEUTROPHILS % 68.3 % (36.0-66.0); PLATELET COUNT, AUTOMATED 374 10^3/uL (150-450); RED BLOOD COUNT 5.77 10^6/uL (4.30-6.10)
[2022-01-25 02:00] LABS: ERYTHROCYTE SEDIMENTATION RATE 20 mm/hr (0-15)
[2022-01-25 02:02] LABS: INR 0.99; PROTHROMBIN TIME 13.5 SECONDS (12.7-14.5)
[2022-01-25 02:04] LABS: CK-MB VALUE MASS 1.2 NG/ML (<3.6); MB/CK RELATIVE INDEX 0.69 (< OR =4)
[2022-01-25 02:17] LABS: ALBUMIN 3.9 GM/DL (3.2-5.2); ALT/SGPT 44 U/L (12-78); BILIRUBIN,DIRECT 0.1 MG/DL (0.0-0.2); BILIRUBIN,TOTAL 0.3 MG/DL (0.2-1.0); BLOOD UREA NITROGEN 11 MG/DL (7-18); C REACTIVE PROTEIN QUANTITATIV 1.79 MG/DL (0.00-0.30); CALCIUM LEVEL 9.4 MG/DL (8.5-10.1); CARBON DIOXIDE LEVEL 27 MEQ/L (21-32); CHLORIDE LEVEL 105 MEQ/L (98-107); CREATININE FOR GFR 1.03 MG/DL (0.70-1.30); GLOMERULAR FILTRATION RATE > 60.0 (>60); GLUCOSE, FASTING 87 MG/DL (70-100); LIPASE 65 U/L (73-393); SODIUM LEVEL 139 MEQ/L (136-145); TOTAL PROTEIN 7.9 GM/DL (6.4-8.2)
[2022-01-25] MEDS ORDERED: KETOROLAC 60MG 2ML VIAL IM ONE (05:00)
[2022-01-25 05:15] VITALS: BP 116/57
== END 2022-01-25 05:20 | disposition home or self-care (01) ==
LOC: M ED
DX: R07.9 Chest pain, unspecified (principal)
CPT/HCPCS: 71045; 80053; 82248; 82550; 82553; 83690; 84484; 85025; 85610; 85652; 86140; 93005; 93041; 94760; 96372; 99284; J1885

== ENCOUNTER 2022-04-06 03:21 | Emergency (ER) | payer MEDICARE, MEDICAID ==
[~2022-04-06] VITALS: Ht 180.3 cm; Wt 120.5 kg
[~2022-04-06 03:21] MED LIST changes: -DOXY-350 PO; +DOXY-444 PO; +VENTAER INH
[2022-04-06 03:25] VITALS: BP 148/83
== END 2022-04-06 06:09 | disposition left against medical advice (07) ==
LOC: M ED 03:21 → EDBD 03:21 → M ED 06:09
DX: Z53.21 Procedure and treatment not carried out due to patient leaving prior to being seen by health care provider (principal)

== ENCOUNTER 2022-05-13 00:27 | Emergency (ER) | payer MEDICARE, MEDICAID ==
[~2022-05-13] VITALS: Ht 180.3 cm; Wt 119.0 kg
[2022-05-13] MEDS ORDERED: predniSONE 20 MG TAB PO ONE (06:45)
[2022-05-13] MEDS ORDERED: COMBIVENT RESPIMAT 100-20MCG INHALER 4GM INH SCH (06:45)
[2022-05-13] MEDS ORDERED: ACETAMINOPHEN 500 MG TAB PO ONE (06:45)
[2022-05-13 08:07] LABS: BASO # 0.1 10^3/uL (0.0-0.2); BASO % 0.7 % (0.0-1.0); EOS # 0.3 10^3/uL (0.0-0.5); EOS % 3.1 % (0.0-3.0); HEMATOCRIT 46.9 % (42.0-52.0); HEMOGLOBIN 14.4 g/dl (13.5-17.5); LYMPH # 3.7 10^3/uL (1.5-5.0); LYMPH % 36.3 % (24.0-44.0); MEAN CORPUSCULAR HEMOGLOBIN 24.5 pg (27.0-33.0); MEAN CORPUSCULAR HGB CONC 30.7 g/dl (32.0-36.5); MEAN CORPUSCULAR VOLUME 79.9 fl (80.0-96.0); MONO # 1.2 10^3/uL (0.0-0.8); MONO % 12.2 % (2.0-8.0); NEUTROPHILS # 4.8 10^3/uL (1.5-8.5); NEUTROPHILS % 47.5 % (36.0-66.0); PLATELET COUNT, AUTOMATED 318 10^3/uL (150-450); RED BLOOD COUNT 5.87 10^6/uL (4.30-6.10); WHITE BLOOD COUNT 10.1 10^3/uL (4.0-10.0)
[2022-05-13 08:33] LABS: CK-MB VALUE MASS < 1.0 NG/ML (<3.6)
[2022-05-13 08:35] LABS: BLOOD UREA NITROGEN 15 MG/DL (9-23); CALCIUM LEVEL 9.4 MG/DL (8.5-10.1); CARBON DIOXIDE LEVEL 24 MMOL/L (20-31); CHLORIDE LEVEL 103 MMOL/L (98-107); CPK CREATINE PHOSPHOKINASE 80 U/L (46-171); GLOMERULAR FILTRATION RATE > 60.0 (>60); GLUCOSE, FASTING 83 MG/DL (60-100); MB/CK RELATIVE INDEX 1.25 (< OR =4); POTASSIUM SERUM 4.4 MMOL/L (3.5-5.1); SODIUM LEVEL 138 MMOL/L (136-145)
[2022-05-13 09:43] VITALS: O2SAT 97
[2022-05-13 10:03] LABS: CK-MB VALUE MASS < 1.0 NG/ML (<3.6)
[2022-05-13 10:09] LABS: CPK CREATINE PHOSPHOKINASE 80 U/L (46-171); MB/CK RELATIVE INDEX 1.25 (< OR =4)
[2022-05-13 10:30] VITALS: BP 134/72
[2022-05-13] MEDS ORDERED: PROA1AER2 INH ×2 (10:37→10:46)
[2022-05-13] MEDS ORDERED: MEDR4PAK PO ×2 (10:37→10:46)
[2022-05-13] MEDS ORDERED: BENZ200C70 PO ×2 (10:44→10:46)
== END 2022-05-13 10:50 | disposition home or self-care (01) ==
LOC: M ED 00:27
DX: J06.9 Acute upper respiratory infection, unspecified (principal); J45.901 Unspecified asthma with (acute) exacerbation; I10 Essential (primary) hypertension; K21.9 Gastro-esophageal reflux disease without esophagitis; F84.0 Autistic disorder; F90.9 Attention-deficit hyperactivity disorder, unspecified type; F41.9 Anxiety disorder, unspecified; F32.9 Major depressive disorder, single episode, unspecified; J30.89 Other allergic rhinitis; Z79.899 Other long term (current) drug therapy
CPT/HCPCS: 71046; 80048; 82550; 82553; 84484; 85025; 85379; 87428; 93005; 94640; 99285; J7512

== ENCOUNTER 2022-08-02 05:18 | Emergency (ER) | payer MEDICARE, MEDICAID ==
[~2022-08-02] VITALS: Ht 180.3 cm; Wt 125.7 kg
[~2022-08-02 05:18] MED LIST changes: +MEDR4PAK PO; +PROA1AER2 INH
[2022-08-02] MEDS ORDERED: AMOX500C PO (07:29)
[2022-08-02 07:48] VITALS: BP 144/88
== END 2022-08-02 07:54 | disposition home or self-care (01) ==
LOC: M ED 05:18
DX: J02.0 Streptococcal pharyngitis (principal); Z79.899 Other long term (current) drug therapy

== ENCOUNTER 2022-09-14 19:25 | Emergency (ER) | payer MEDICARE, MEDICAID ==
[~2022-09-14] VITALS: Ht 180.3 cm; Wt 122.1 kg
[~2022-09-14 19:25] MED LIST changes: +ALBU8.5H; +AMOX500C PO
[2022-09-15 01:38] LABS: CK-MB VALUE MASS < 1.0 NG/ML (<3.6); CPK CREATINE PHOSPHOKINASE 120 U/L (46-171); MB/CK RELATIVE INDEX 0.83 (< OR =4)
[2022-09-15 02:17] VITALS: BP 130/83
== END 2022-09-15 02:25 | disposition home or self-care (01) ==
LOC: EDBD 19:25 → M ED 19:25
DX: R07.89 Other chest pain (principal); M79.621 Pain in right upper arm; I10 Essential (primary) hypertension; J45.909 Unspecified asthma, uncomplicated; F84.0 Autistic disorder; D72.829 Elevated white blood cell count, unspecified; Z79.899 Other long term (current) drug therapy; Z79.51 Long term (current) use of inhaled steroids

== ENCOUNTER → 2023-01-17 | Outpatient (REF) | LOC: M EMP 08:04 | PROVIDERS: ATTEND Family Medicine | DX: Z11.52 Encounter for screening for COVID-19 (principal) ==

== ENCOUNTER 2023-04-02 07:57 | Emergency (ER) | payer MEDICARE, MEDICAID ==
[~2023-04-02] VITALS: Ht 180.3 cm; Wt 118.8 kg
[~2023-04-02 07:57] MED LIST changes: +TRAZ-257; +VERA40TA; +ZOLO100T
[2023-04-02 07:59] VITALS: BP 134/83; TEMP 96.1; O2SAT 95
[2023-04-02] MEDS ORDERED: MONT10TA97 (08:13)
[2023-04-02] MEDS ORDERED: HYDR25OIN TOP (11:20)
== END 2023-04-02 11:39 | disposition home or self-care (01) ==
LOC: M ED 07:57
DX: L23.1 Allergic contact dermatitis due to adhesives (principal); I10 Essential (primary) hypertension; J45.909 Unspecified asthma, uncomplicated; K21.9 Gastro-esophageal reflux disease without esophagitis; G47.33 Obstructive sleep apnea (adult) (pediatric); F41.9 Anxiety disorder, unspecified; F32.9 Major depressive disorder, single episode, unspecified; F17.290 Nicotine dependence, other tobacco product, uncomplicated; Z79.899 Other long term (current) drug therapy; Z91.012 Allergy to eggs

== ENCOUNTER 2023-04-11 18:25 | Emergency (ER) | payer MEDICARE, MEDICAID ==
[~2023-04-11] VITALS: Ht 180.3 cm; Wt 120.2 kg
[2023-04-11 18:25] VITALS: TEMP 97.7
[~2023-04-11 18:25] MED LIST changes: +HYDR25OIN TOP
[2023-04-11 20:23] LABS: BASO # 0.1 10^3/uL (0.0-0.2); BASO % 0.4 % (0.0-1.0); EOS # 0.1 10^3/uL (0.0-0.5); EOS % 0.6 % (0.0-3.0); HEMOGLOBIN 15.5 g/dl (13.5-17.5); LYMPH # 3.9 10^3/uL (1.5-5.0); MEAN CORPUSCULAR HEMOGLOBIN 25.2 pg (27.0-33.0); MEAN CORPUSCULAR HGB CONC 31.6 g/dl (32.0-36.5); MEAN CORPUSCULAR VOLUME 79.8 fl (80.0-96.0); MONO # 0.9 10^3/uL (0.0-0.8); MONO % 6.6 % (2.0-8.0); NEUTROPHILS # 8.9 10^3/uL (1.5-8.5); NEUTROPHILS % 64.1 % (36.0-66.0); PLATELET COUNT, AUTOMATED 408 10^3/uL (150-450); RED BLOOD COUNT 6.14 10^6/uL (4.30-6.10); WHITE BLOOD COUNT 13.9 10^3/uL (4.0-10.0)
[2023-04-11 20:45] LABS: LIPASE 30 U/L (12-53)
[2023-04-11 20:47] LABS: ALBUMIN 4.1 G/DL (3.2-5.2); ALKALINE PHOSPHATASE 69 U/L (46-116); ALT/SGPT 54 U/L (7.0-40); AST/SGOT 25 U/L (<34); BILIRUBIN,DIRECT < 0.1 MG/DL (<0.4); BILIRUBIN,TOTAL 0.2 MG/DL (0.3-1.2); BLOOD UREA NITROGEN 13 MG/DL (9-23); CALCIUM LEVEL 9.7 MG/DL (8.5-10.1); CARBON DIOXIDE LEVEL 28 MMOL/L (20-31); CHLORIDE LEVEL 106 MMOL/L (98-107); CREATININE FOR GFR 0.86 MG/DL (0.70-1.30); GLOMERULAR FILTRATION RATE > 60.0 (>60); GLUCOSE, FASTING 88 MG/DL (60-100); POTASSIUM SERUM 4.6 MMOL/L (3.5-5.1); SODIUM LEVEL 145 MMOL/L (136-145); TOTAL PROTEIN 8.1 G/DL (5.7-8.2)
[2023-04-11] MEDS ORDERED: ISOVUE-370 76% 100ML VIAL As Ordered ONE (21:11)
[2023-04-11 23:00] VITALS: BP 149/69; O2SAT 99
[2023-04-11] MEDS ORDERED: MIRA3350 PO (23:02)
== END 2023-04-11 23:13 | disposition home or self-care (01) ==
LOC: M ED 18:25
DX: R10.84 Generalized abdominal pain (principal); F90.9 Attention-deficit hyperactivity disorder, unspecified type; F84.0 Autistic disorder; F32.A Depression, unspecified; I10 Essential (primary) hypertension; Z91.012 Allergy to eggs; Z79.899 Other long term (current) drug therapy; Z79.51 Long term (current) use of inhaled steroids
CPT/HCPCS: 36415; 74177; 80048; 80076; 81001; 83690; 85025; 99284; Q9967

== ENCOUNTER 2023-04-20 12:28 | Emergency (ER) | payer MEDICARE, MEDICAID ==
[~2023-04-20] VITALS: Ht 180.3 cm; Wt 111.5 kg
[~2023-04-20 12:28] MED LIST changes: +MIRA3350 PO
[2023-04-20] MEDS ORDERED: MAALOX 30 ML SUSP *UDC PO ONE (14:05)
[2023-04-20] MEDS ORDERED: SUCRALFATE SUSP 1GM/10ML UD PO ONE (14:05)
[2023-04-20 14:11] LABS: CK-MB VALUE MASS < 1.0 NG/ML (<3.6)
[2023-04-20 14:14] LABS: CPK CREATINE PHOSPHOKINASE 94 U/L (46-171); MB/CK RELATIVE INDEX 1.06 (< OR =4)
[2023-04-20 15:02] LABS: LIPASE 27 U/L (12-53)
[2023-04-20 15:04] LABS: ALBUMIN 3.7 G/DL (3.2-5.2); ALKALINE PHOSPHATASE 56 U/L (46-116); ALT/SGPT 51 U/L (7.0-40); AST/SGOT 21 U/L (<34); BILIRUBIN,TOTAL 0.8 MG/DL (0.3-1.2); BLOOD UREA NITROGEN 10 MG/DL (9-23); CALCIUM LEVEL 8.6 MG/DL (8.5-10.1); CARBON DIOXIDE LEVEL 21 MMOL/L (20-31); CHLORIDE LEVEL 105 MMOL/L (98-107); CREATININE FOR GFR 0.78 MG/DL (0.70-1.30); GLOMERULAR FILTRATION RATE > 60.0 (>60); GLUCOSE, FASTING 106 MG/DL (60-100); POTASSIUM SERUM 3.5 MMOL/L (3.5-5.1); SODIUM LEVEL 136 MMOL/L (136-145); TOTAL PROTEIN 7.4 G/DL (5.7-8.2)
[2023-04-20 16:24] LABS: APPEARANCE, URINE HAZY (CLEAR); BACTERIA, URINE AUTO NEGATIVE (NEGATIVE); BILIRUBIN, URINE AUTO NEGATIVE (NEGATIVE); BLOOD, URINE BLOOD NEGATIVE (NEGATIVE); COLOR, URINE AMBER (YELLOW); GLUCOSE, URINE (UA) AUTO NEGATIVE (NEGATIVE); KETONE, URINE AUTO NEGATIVE (NEGATIVE); LEUKOCYTE ESTERASE, URINE AUTO NEGATIVE (NEGATIVE); MUCUS, URINE LARGE (NEGATIVE); NITRITE, URINE AUTO NEGATIVE (NEGATIVE); PROTEIN, URINE AUTO 2+ mg/dL (NEGATIVE); RBC, URINE AUTO 2 /HPF (0-3); SPECIFIC GRAVITY URINE AUTO 1.035 (1.002-1.035); SQUAMOUS EPITHELIAL CELL UR AU 1 /HPF (0-6); WBC, URINE AUTO 1 /HPF (0-3)
[2023-04-20 16:30] VITALS: BP 124/83; TEMP 98.3; O2SAT 98
[2023-04-21] MEDS ORDERED: IBUP-1022 PO (11:44)
== END 2023-04-20 17:01 | disposition home or self-care (01) ==
LOC: M ED 12:28
DX: R07.9 Chest pain, unspecified (principal); Z91.012 Allergy to eggs; Z79.51 Long term (current) use of inhaled steroids; Z79.899 Other long term (current) drug therapy

== ENCOUNTER 2023-05-19 21:36 | Emergency (ER) | payer MEDICARE, MEDICAID ==
[~2023-05-19] VITALS: Ht 180.3 cm; Wt 122.8 kg
[2023-05-20] MEDS ORDERED: DEBR6.5S4 OTIC (05:48)
[2023-05-20 06:49] VITALS: BP 124/74; TEMP 97.4; O2SAT 99
== END 2023-05-20 06:50 | disposition home or self-care (01) ==
LOC: M ED 21:36
DX: J02.0 Streptococcal pharyngitis (principal); H61.20 Impacted cerumen, unspecified ear; Z91.012 Allergy to eggs; Z79.899 Other long term (current) drug therapy; Z79.51 Long term (current) use of inhaled steroids

== ENCOUNTER 2023-06-10 13:49 | Emergency (ER) | payer MEDICARE, MEDICAID ==
[~2023-06-10] VITALS: Ht 180.3 cm; Wt 124.8 kg
[~2023-06-10 13:49] MED LIST changes: +DEBR6.5S4 OTIC
[2023-06-10 13:50] VITALS: TEMP 96.8
[2023-06-10] MEDS ORDERED: MONT10TA97 (13:59)
[2023-06-10 14:42] LABS: BASO # 0.1 10^3/uL (0.0-0.2); BASO % 0.6 % (0.0-1.0); EOS # 0.2 10^3/uL (0.0-0.5); EOS % 1.4 % (0.0-3.0); HEMATOCRIT 46.4 % (42.0-52.0); HEMOGLOBIN 14.8 g/dl (13.5-17.5); LYMPH # 4.2 10^3/uL (1.5-5.0); LYMPH % 29.3 % (24.0-44.0); MEAN CORPUSCULAR HEMOGLOBIN 25.2 pg (27.0-33.0); MEAN CORPUSCULAR HGB CONC 31.9 g/dl (32.0-36.5); MONO # 1.1 10^3/uL (0.0-0.8); MONO % 7.4 % (2.0-8.0); NEUTROPHILS # 8.8 10^3/uL (1.5-8.5); PLATELET COUNT, AUTOMATED 366 10^3/uL (150-450); RED BLOOD COUNT 5.87 10^6/uL (4.30-6.10); WHITE BLOOD COUNT 14.4 10^3/uL (4.0-10.0)
[2023-06-10 15:07] LABS: LIPASE 34 U/L (12-53)
[2023-06-10 15:09] LABS: ALBUMIN 3.7 G/DL (3.2-5.2); ALKALINE PHOSPHATASE 75 U/L (46-116); ALT/SGPT 42 U/L (7.0-40); AST/SGOT 16 U/L (<34); BILIRUBIN,DIRECT < 0.1 MG/DL (<0.4); BILIRUBIN,TOTAL 0.2 MG/DL (0.3-1.2); TOTAL PROTEIN 7.9 G/DL (5.7-8.2)
[2023-06-10] MEDS ORDERED: ISOVUE-370 76% 100ML VIAL As Ordered ONE (16:14)
[2023-06-10 16:46] VITALS: BP 136/77; O2SAT 98
[2023-06-10] MEDS ORDERED: KETOROLAC 30 MG/ML 1ML VIAL IV ONE (17:15)
== END 2023-06-10 18:40 | disposition home or self-care (01) ==
LOC: M ED 13:49
DX: R10.11 Right upper quadrant pain (principal); K21.9 Gastro-esophageal reflux disease without esophagitis; J45.909 Unspecified asthma, uncomplicated; J30.89 Other allergic rhinitis; F17.290 Nicotine dependence, other tobacco product, uncomplicated; Z79.899 Other long term (current) drug therapy; Z91.012 Allergy to eggs
CPT/HCPCS: 74177; 76705; 80047; 80076; 81001; 83690; 85025; 96374; 99284; J1885; Q9967

== ENCOUNTER 2023-06-14 19:48 | Inpatient (IN) | payer MEDICARE, MEDICAID ==
[~2023-06-14] VITALS: Ht 180.3 cm; Wt 120.8 kg
[~2023-06-14 19:48] MED LIST changes: -SYMB16INH; +SYMB16INH INH
[2023-06-14 20:33] LABS: HEMATOCRIT 47.1 % (42.0-52.0); HEMOGLOBIN 15.2 g/dl (13.5-17.5); MEAN CORPUSCULAR HEMOGLOBIN 25.5 pg (27.0-33.0); MEAN CORPUSCULAR HGB CONC 32.3 g/dl (32.0-36.5); PLATELET COUNT, AUTOMATED 378 10^3/uL (150-450); RED BLOOD COUNT 5.96 10^6/uL (4.30-6.10); WHITE BLOOD COUNT 15.8 10^3/uL (4.0-10.0)
[2023-06-14 20:53] LABS: AMPHETAMINES LEVEL URINE NEGATIVE (NEGATIVE); BARBITURATES URINE NEGATIVE (NEGATIVE); BENZODIAZEPINES URINE NEGATIVE (NEGATIVE); CANNABINOIDS URINE NEGATIVE (NEGATIVE); COCAINE METABOLITE URINE NEGATIVE (NEGATIVE); METHADONE URINE NEGATIVE (NEGATIVE); OPIATES URINE NEGATIVE (NEGATIVE); PHENCYCLIDINE URINE NEGATIVE (NEGATIVE)
[2023-06-14 20:55] LABS: ETHYL ALCOHOL (ETHANOL) < 0.003 % (0.000-0.010)
[2023-06-14 20:57] LABS: SALICYLATE LEVEL < 3.0 MG/DL (<30)
[2023-06-14 20:59] LABS: ALBUMIN 3.9 G/DL (3.2-5.2); ALKALINE PHOSPHATASE 67 U/L (46-116); ALT/SGPT 43 U/L (7.0-40); AST/SGOT 39 U/L (<34); BILIRUBIN,DIRECT < 0.1 MG/DL (<0.4); BILIRUBIN,TOTAL 0.2 MG/DL (0.3-1.2); BLOOD UREA NITROGEN 12 MG/DL (9-23); CARBON DIOXIDE LEVEL 26 MMOL/L (20-31); CHLORIDE LEVEL 105 MMOL/L (98-107); CREATININE FOR GFR 0.79 MG/DL (0.70-1.30); GLOMERULAR FILTRATION RATE > 60.0 (>60); GLUCOSE, FASTING 129 MG/DL (60-100); POTASSIUM SERUM 5.7 MMOL/L (3.5-5.1); SODIUM LEVEL 140 MMOL/L (136-145); THYROID STIMULATING HORMONE 2.435 uIU/ML (0.55-4.78); TOTAL PROTEIN 7.7 G/DL (5.7-8.2)
[2023-06-14] MEDS ORDERED: MOM 30ML SUSPENSION UDC PO PRN (21:55)
[2023-06-14] MEDS ORDERED: LOTE0.5S OU (23:16)
[2023-06-14] MEDS ORDERED: ALBU8.5H INH (23:16)
[2023-06-14] MEDS ORDERED: OMEP1CAP73 PO (23:16)
[2023-06-14] MEDS ORDERED: TRAZ-257 PO (23:16)
[2023-06-14] MEDS ORDERED: VERA40TA PO (23:16)
[2023-06-14] MEDS ORDERED: DEBR6.5S4 AU (23:16)
[2023-06-14] MEDS ORDERED: ZOLO100T PO (23:16)
[2023-06-14] MEDS ORDERED: MONT10TA97 PO (23:16)
[2023-06-14] MEDS ORDERED: HOME MED LIST COMPLETE! XX SCH (23:20)
[2023-06-14 23:48] VITALS: BP 139/84; TEMP 98.1; O2SAT 98
[2023-06-15] MEDS: traZODone 50 MG TAB PO PRN (01:03)
[2023-06-15 06:40] VITALS: BP 132/66; TEMP 97.3
[2023-06-15] MEDS: CARBAMIDE PEROXIDE 6.5% OTIC SOLN 15ML AU SCH (09:00)
[2023-06-15] MEDS: buPROPion **XL** TABLET 150MG (WELLBUTRIN XL) PO SCH (11:37)
[2023-06-15] MEDS: SERTRALINE 100 MG TAB PO SCH (11:37)
[2023-06-15] MEDS: OMEPRAZOLE 20MG CAP PO SCH (11:37)
[2023-06-15] MEDS: MONTELUKAST 10 MG TAB PO SCH (11:43)
[2023-06-15] MEDS: SYMBICORT 160/4.5MCG INHALER 6GM INH SCH (11:47)
[2023-06-15 12:08] LABS: HEMOGLOBIN A1c 5.1 % (4.0-6.0)
[2023-06-15] MEDS: VERAPAMIL 40 MG TAB PO SCH (13:05)
[2023-06-15] MEDS: ALBUTEROL 90 MCG/ACT 8GM HFA INHALER INH PRN (15:00)
[2023-06-15 16:13] VITALS: BP 138/81; TEMP 98; O2SAT 98
[2023-06-15] MEDS: diphenhydrAMINE 25MG CAP PO PRN (17:37)
[2023-06-15] MEDS: traZODone 100 MG TAB PO SCH (21:32)
[2023-06-16 06:17] VITALS: BP 122/72; TEMP 96.9; O2SAT 98
[2023-06-16] MEDS: ACETAMINOPHEN TAB 650MG DOSE (2X325MG) PO PRN (06:30)
[2023-06-16 07:28] LABS: CHOLESTEROL RISK RATIO 3.16 (<5); HDL CHOLESTEROL 44.8 MG/DL (>40); LDL CHOLESTEROL 77.6 MG/DL (<100); NON-HDL-C 97.2 MG/DL
[2023-06-16] MEDS: IBUPROFEN 400MG TAB PO PRN (16:29)
[2023-06-16 16:41] VITALS: BP 136/75; TEMP 97.7; O2SAT 97
[2023-06-16] MEDS: MIRTAZAPINE 7.5MG PER 1/2 TABLET PO PRN (21:08)
[2023-06-16] MEDS: traZODone 50 MG TAB PO PRN (21:08)
[2023-06-17 06:31] VITALS: BP 124/68; TEMP 97.8; O2SAT 95
[2023-06-17] MEDS: OLANZapine ORAL DISINTEGRATING TAB 5MG PO PRN (11:27)
[2023-06-17] MEDS: MAALOX 30 ML SUSP *UDC PO PRN (13:11)
[2023-06-17 16:55] VITALS: BP 138/78; TEMP 97.5; O2SAT 99
[2023-06-18 06:28] VITALS: BP 110/53; TEMP 97.3; O2SAT 96
[2023-06-18 18:08] VITALS: BP 131/89; TEMP 97.3; O2SAT 98
[2023-06-18] MEDS: OLANZapine 10 MG TAB PO SCH (20:34)
[2023-06-19 06:35] VITALS: BP 115/72; TEMP 97.3; O2SAT 95
[2023-06-19 17:09] VITALS: BP 155/86; TEMP 97.4; O2SAT 98
[2023-06-19 19:30] VITALS: BP 116/89
[2023-06-20 06:15] VITALS: BP 117/71; TEMP 97.9; O2SAT 97
[2023-06-20 08:22] VITALS: BP 121/72
[2023-06-20 18:13] VITALS: BP 134/80; TEMP 97.4
[2023-06-21 06:10] VITALS: BP 115/67; TEMP 97.6; O2SAT 95
[2023-06-21 08:32] VITALS: BP 133/71
[2023-06-21] MEDS ORDERED: BUPR150T12 PO (09:26)
[2023-06-21] MEDS ORDERED: ZOLO100T PO (09:26)
[2023-06-21] MEDS ORDERED: OLAN1TAB20 PO (09:26)
[2023-06-21] MEDS ORDERED: TRAZ-252 PO (09:26)
== END 2023-06-21 11:17 | disposition home or self-care (01) | DRG 881 ==
LOC: M ED 19:48 → M PSY 21:51 → M ED INP 21:51 → M PSY 23:48
PROVIDERS: ADMIT Student in an Organized Health Care Education/Training Program; ATTEND Student in an Organized Health Care Education/Training Program
DX: F32.A Depression, unspecified (principal); R45.851 Suicidal ideations; F84.0 Autistic disorder; F32.3 Major depressive disorder, single episode, severe with psychotic features; F60.3 Borderline personality disorder; K76.0 Fatty (change of) liver, not elsewhere classified; R16.0 Hepatomegaly, not elsewhere classified; E66.9 Obesity, unspecified; Z68.37 Body mass index [BMI] 37.0-37.9, adult; D56.3 Thalassemia minor; J45.909 Unspecified asthma, uncomplicated; K58.0 Irritable bowel syndrome with diarrhea; G47.30 Sleep apnea, unspecified; K21.9 Gastro-esophageal reflux disease without esophagitis; I10 Essential (primary) hypertension; E55.9 Vitamin D deficiency, unspecified; Z79.899 Other long term (current) drug therapy; Z91.012 Allergy to eggs; Z81.8 Family history of other mental and behavioral disorders

== ENCOUNTER → 2023-07-11 | Outpatient (CLI) | payer MEDICARE, MEDICAID ==
[~2023-07-11] MED LIST changes: +ALBU8.5H INH; +BUPR150T12 PO; +BUPR15TASR PO; +DEBR6.5S4 AU; +LOTE0.5S OU; +MONT10TA97 PO; +OLAN1TAB20 PO; +OMEP1CAP73 PO; +TRAZ-252 PO; +TRAZ-257 PO; +TRAZ1TAB14 PO; +VERA40TA PO; +ZOLO100T PO
[2023-07-11 14:42] LABS: APPEARANCE, URINE CLEAR (CLEAR); BACTERIA, URINE AUTO NEGATIVE (NEGATIVE); BILIRUBIN, URINE AUTO NEGATIVE (NEGATIVE); BLOOD, URINE BLOOD NEGATIVE (NEGATIVE); COLOR, URINE YELLOW (YELLOW); GLUCOSE, URINE (UA) AUTO NEGATIVE (NEGATIVE); KETONE, URINE AUTO NEGATIVE (NEGATIVE); LEUKOCYTE ESTERASE, URINE AUTO NEGATIVE (NEGATIVE); MUCUS, URINE SMALL (NEGATIVE); NITRITE, URINE AUTO NEGATIVE (NEGATIVE); PROTEIN, URINE AUTO NEGATIVE (NEGATIVE); RBC, URINE AUTO 0 /HPF (0-3); SQUAMOUS EPITHELIAL CELL UR AU 0 /HPF (0-6); UROBILINOGEN, URINE AUTO 0.2 mg/dL (0.0-2.0); WBC, URINE AUTO 0 /HPF (0-3)
[2023-07-11 14:43] LABS: BASO # 0.1 10^3/uL (0.0-0.2); BASO % 0.5 % (0.0-1.0); EOS # 0.2 10^3/uL (0.0-0.5); EOS % 1.6 % (0.0-3.0); HEMATOCRIT 46.3 % (42.0-52.0); HEMOGLOBIN 15.1 g/dl (13.5-17.5); LYMPH # 3.5 10^3/uL (1.5-5.0); LYMPH % 27.7 % (24.0-44.0); MEAN CORPUSCULAR HEMOGLOBIN 25.5 pg (27.0-33.0); MEAN CORPUSCULAR HGB CONC 32.6 g/dl (32.0-36.5); MEAN CORPUSCULAR VOLUME 78.3 fl (80.0-96.0); MONO # 0.9 10^3/uL (0.0-0.8); MONO % 7.1 % (2.0-8.0); NEUTROPHILS % 62.7 % (36.0-66.0); PLATELET COUNT, AUTOMATED 358 10^3/uL (150-450); RED BLOOD COUNT 5.91 10^6/uL (4.30-6.10); WHITE BLOOD COUNT 12.7 10^3/uL (4.0-10.0)
[2023-07-11 15:04] LABS: HEMOGLOBIN A1c 5.2 % (4.0-6.0)
[2023-07-11 15:12] LABS: ALBUMIN 3.6 G/DL (3.2-5.2); ALKALINE PHOSPHATASE 60 U/L (46-116); ALT/SGPT 47 U/L (7.0-40); AST/SGOT 23 U/L (<34); BILIRUBIN,TOTAL 0.3 MG/DL (0.3-1.2); BLOOD UREA NITROGEN 12 MG/DL (9-23); CALCIUM LEVEL 9.5 MG/DL (8.5-10.1); CARBON DIOXIDE LEVEL 27 MMOL/L (20-31); CHLORIDE LEVEL 105 MMOL/L (98-107); CHOLESTEROL LEVEL 197 MG/DL (<200); CHOLESTEROL RISK RATIO 4.59 (<5); CREATININE FOR GFR 0.74 MG/DL (0.70-1.30); GLOMERULAR FILTRATION RATE > 60.0 (>60); GLUCOSE, FASTING 77 MG/DL (60-100); HDL CHOLESTEROL 42.9 MG/DL (>40); LDL CHOLESTEROL 112.3 MG/DL (<100); NON-HDL-C 154.1 MG/DL; POTASSIUM SERUM 4.4 MMOL/L (3.5-5.1); SODIUM LEVEL 140 MMOL/L (136-145); TOTAL PROTEIN 7.3 G/DL (5.7-8.2); TRIGLYCERIDES LEVEL 209 MG/DL (<150)
[2023-07-11 15:13] LABS: THYROID STIMULATING HORMONE 1.133 uIU/ML (0.55-4.78)
== END ==
LOC: M LAB 13:22
PROVIDERS: ATTEND Family Medicine
DX: R10.2 Pelvic and perineal pain (principal); E78.00 Pure hypercholesterolemia, unspecified

== ENCOUNTER 2023-07-13 00:06 | Inpatient (IN) | payer MEDICARE, MEDICAID ==
[~2023-07-13] VITALS: Ht 180.3 cm; Wt 123.9 kg
[~2023-07-13 00:06] MED LIST changes: -BUPR15TASR PO; -TRAZ1TAB14 PO
[2023-07-13 00:43] LABS: HEMATOCRIT 45.8 % (42.0-52.0); HEMOGLOBIN 14.8 g/dl (13.5-17.5); MEAN CORPUSCULAR HEMOGLOBIN 25.4 pg (27.0-33.0); MEAN CORPUSCULAR HGB CONC 32.3 g/dl (32.0-36.5); MEAN CORPUSCULAR VOLUME 78.6 fl (80.0-96.0); PLATELET COUNT, AUTOMATED 351 10^3/uL (150-450); RED BLOOD COUNT 5.83 10^6/uL (4.30-6.10); WHITE BLOOD COUNT 17.5 10^3/uL (4.0-10.0)
[2023-07-13 01:05] LABS: AMPHETAMINES LEVEL URINE NEGATIVE (NEGATIVE); BARBITURATES URINE NEGATIVE (NEGATIVE); BENZODIAZEPINES URINE NEGATIVE (NEGATIVE); CANNABINOIDS URINE NEGATIVE (NEGATIVE); COCAINE METABOLITE URINE NEGATIVE (NEGATIVE); METHADONE URINE NEGATIVE (NEGATIVE); OPIATES URINE NEGATIVE (NEGATIVE); PHENCYCLIDINE URINE NEGATIVE (NEGATIVE)
[2023-07-13 01:20] LABS: ETHYL ALCOHOL (ETHANOL) < 0.003 % (0.000-0.010)
[2023-07-13 01:21] LABS: ALBUMIN 3.8 G/DL (3.2-5.2); ALKALINE PHOSPHATASE 73 U/L (46-116); ALT/SGPT 48 U/L (7.0-40); AST/SGOT 27 U/L (<34); BILIRUBIN,DIRECT < 0.1 MG/DL (<0.4); BILIRUBIN,TOTAL 0.2 MG/DL (0.3-1.2); BLOOD UREA NITROGEN 10 MG/DL (9-23); CALCIUM LEVEL 9.2 MG/DL (8.5-10.1); CARBON DIOXIDE LEVEL 22 MMOL/L (20-31); CHLORIDE LEVEL 107 MMOL/L (98-107); CREATININE FOR GFR 0.69 MG/DL (0.70-1.30); GLOMERULAR FILTRATION RATE > 60.0 (>60); GLUCOSE, FASTING 167 MG/DL (60-100); POTASSIUM SERUM 3.7 MMOL/L (3.5-5.1); SODIUM LEVEL 140 MMOL/L (136-145); TOTAL PROTEIN 7.3 G/DL (5.7-8.2)
[2023-07-13 01:22] LABS: SALICYLATE LEVEL < 3.0 MG/DL (<30)
[2023-07-13 01:24] LABS: THYROID STIMULATING HORMONE 3.297 uIU/ML (0.55-4.78)
[2023-07-13] MEDS ORDERED: ALBUTEROL 90 MCG/ACT 8GM HFA INHALER INH PRN ×2 (08:55→22:25)
[2023-07-13] MEDS ORDERED: traZODone 50 MG TAB PO PRN (08:55)
[2023-07-13] MEDS ORDERED: SYMBICORT 160/4.5MCG INHALER 6GM INH SCH ×2 (09:00)
[2023-07-13] MEDS: OMEPRAZOLE 20MG CAP PO SCH (09:26)
[2023-07-13] MEDS: buPROPion **XL** TABLET 150MG (WELLBUTRIN XL) PO SCH (09:26)
[2023-07-13] MEDS: SERTRALINE 100 MG TAB PO SCH (09:26)
[2023-07-13] MEDS: MONTELUKAST 10 MG TAB PO SCH (09:26)
[2023-07-13] MEDS: VERAPAMIL 40 MG TAB PO SCH ×2 (09:28→23:11)
[2023-07-13] MEDS ORDERED: TRAZ1TAB14 PO (10:43)
[2023-07-13] MEDS ORDERED: OLAN1TAB20 PO (10:43)
[2023-07-13] MEDS ORDERED: BUPR15TASR PO (10:43)
[2023-07-13] MEDS ORDERED: HOME MED LIST COMPLETE! XX SCH (10:45)
[2023-07-13] MEDS: SYMBICORT 160/4.5MCG INHALER 6GM INH SCH (11:30)
[2023-07-13] MEDS ORDERED: MAALOX 30 ML SUSP *UDC PO PRN (13:55)
[2023-07-13] MEDS ORDERED: OLANZapine ORAL DISINTEGRATING TAB 5MG PO PRN (13:55)
[2023-07-13] MEDS ORDERED: MOM 30ML SUSPENSION UDC PO PRN (13:55)
[2023-07-13 15:57] VITALS: BP 118/78; TEMP 97.7; O2SAT 98
[2023-07-13] MEDS ORDERED: OLANZapine 10 MG TAB PO SCH (21:00)
[2023-07-13] MEDS: traZODone 50 MG TAB PO PRN (21:03)
[2023-07-13] MEDS: ACETAMINOPHEN TAB 650MG DOSE (2X325MG) PO PRN (21:18)
[2023-07-13] MEDS: diphenhydrAMINE 25MG CAP PO PRN (22:15)
[2023-07-13] MEDS: IBUPROFEN 400MG TAB PO PRN (23:11)
[2023-07-14] MEDS: SYMBICORT 160/4.5MCG INHALER 6GM INH SCH (00:40)
[2023-07-14 06:24] VITALS: BP 118/59; TEMP 97.2; O2SAT 99
[2023-07-14] MEDS: MONTELUKAST 10 MG TAB PO SCH (12:59)
[2023-07-14] MEDS: buPROPion **XL** TABLET 150MG (WELLBUTRIN XL) PO SCH (14:21)
[2023-07-14] MEDS: SERTRALINE HCL 50 MG TAB PO SCH (14:21)
[2023-07-14] MEDS: ALBUTEROL 90 MCG/ACT 8GM HFA INHALER INH SCH (15:34)
[2023-07-14 15:58] LABS: BASO # 0.1 10^3/uL (0.0-0.2); BASO % 0.4 % (0.0-1.0); EOS # 0.2 10^3/uL (0.0-0.5); EOS % 1.7 % (0.0-3.0); HEMATOCRIT 43.6 % (42.0-52.0); LYMPH # 3.1 10^3/uL (1.5-5.0); LYMPH % 23.6 % (24.0-44.0); MEAN CORPUSCULAR HEMOGLOBIN 25.1 pg (27.0-33.0); MEAN CORPUSCULAR HGB CONC 32.1 g/dl (32.0-36.5); MEAN CORPUSCULAR VOLUME 78.1 fl (80.0-96.0); MONO # 0.9 10^3/uL (0.0-0.8); MONO % 6.4 % (2.0-8.0); NEUTROPHILS % 67.5 % (36.0-66.0); PLATELET COUNT, AUTOMATED 325 10^3/uL (150-450); RED BLOOD COUNT 5.58 10^6/uL (4.30-6.10); WHITE BLOOD COUNT 13.3 10^3/uL (4.0-10.0)
[2023-07-14 16:11] LABS: HEMOGLOBIN A1c 5.3 % (4.0-6.0)
[2023-07-14 16:15] VITALS: BP 135/73; TEMP 97.8; O2SAT 100
[2023-07-14 16:20] LABS: ERYTHROCYTE SEDIMENTATION RATE 43 mm/hr (0-15)
[2023-07-14 16:23] LABS: ALBUMIN 3.8 G/DL (3.2-5.2); ALKALINE PHOSPHATASE 65 U/L (46-116); ALT/SGPT 50 U/L (7.0-40); AST/SGOT 22 U/L (<34); BILIRUBIN,TOTAL 0.2 MG/DL (0.3-1.2); BLOOD UREA NITROGEN 12 MG/DL (9-23); CALCIUM LEVEL 9.3 MG/DL (8.5-10.1); CARBON DIOXIDE LEVEL 25 MMOL/L (20-31); CHLORIDE LEVEL 105 MMOL/L (98-107); CREATININE FOR GFR 0.66 MG/DL (0.70-1.30); GLOMERULAR FILTRATION RATE > 60.0 (>60); GLUCOSE, FASTING 91 MG/DL (60-100); POTASSIUM SERUM 4.2 MMOL/L (3.5-5.1); SODIUM LEVEL 139 MMOL/L (136-145); TOTAL PROTEIN 7.4 G/DL (5.7-8.2)
[2023-07-14 16:30] LABS: PROCALCITONIN <0.04 ng/ml
[2023-07-14 16:57] LABS: HEPATITIS C VIRUS ABY INDEX 0.03 INDEX (<0.8)
[2023-07-14 16:58] LABS: HEPATITIS B CORE ANTIBODY IGM NEGATIVE (NEGATIVE)
[2023-07-14] MEDS: traZODone 50 MG TAB PO PRN (20:33)
[2023-07-14] MEDS: OLANZapine ORAL DISINTEGRATING TAB 5MG PO SCH (20:34)
[2023-07-15 06:44] VITALS: BP 122/69; TEMP 97.1; O2SAT 96
[2023-07-15] MEDS: OLANZapine ORAL DISINTEGRATING TAB 5MG PO SCH (10:44)
[2023-07-15] MEDS: OMEPRAZOLE 20MG CAP PO SCH (13:52)
[2023-07-15 16:04] VITALS: BP 137/77; TEMP 98.4; O2SAT 96
[2023-07-16 06:46] VITALS: BP 104/53; TEMP 97.1; O2SAT 95
[2023-07-16 07:48] LABS: CHOLESTEROL RISK RATIO 3.59 (<5); HDL CHOLESTEROL 46.2 MG/DL (>40); LDL CHOLESTEROL 87.4 MG/DL (<100); NON-HDL-C 119.8 MG/DL
[2023-07-16 08:41] VITALS: BP 125/79
[2023-07-16 18:34] VITALS: BP 161/80; TEMP 97.4; O2SAT 95
[2023-07-16 20:10] VITALS: BP 126/74; TEMP 97.8; O2SAT 96
[2023-07-17 06:24] VITALS: BP 112/61; TEMP 97.1; O2SAT 96
[2023-07-17 09:07] VITALS: BP 112/61
[2023-07-17] MEDS ORDERED: OLAN5ZYD PO ×2 (09:33)
[2023-07-17] MEDS ORDERED: TRAZ1TAB14 PO (09:33)
[2023-07-17] MEDS ORDERED: BUPR15TASR PO (09:33)
[2023-07-17] MEDS ORDERED: SERT50TA29 PO (09:33)
[2023-07-17 13:08] LABS: ANTINUCLEAR ANTIBODIES DIRECT Negative (Negative)
[2023-07-17] MEDS ORDERED: ALBUTEROL 90 MCG/ACT 8GM HFA INHALER INH PRN (16:00)
== END 2023-07-17 13:05 | disposition home or self-care (01) | DRG 881 ==
LOC: M ED 00:06 → M ED INP 13:52 → M PSY 15:37
PROVIDERS: ADMIT Student in an Organized Health Care Education/Training Program; ATTEND Student in an Organized Health Care Education/Training Program
DX: F32.A Depression, unspecified (principal); F84.0 Autistic disorder; R45.851 Suicidal ideations; F29 Unspecified psychosis not due to a substance or known physiological condition; F60.3 Borderline personality disorder; K76.0 Fatty (change of) liver, not elsewhere classified; R16.0 Hepatomegaly, not elsewhere classified; E66.9 Obesity, unspecified; D56.3 Thalassemia minor; J45.909 Unspecified asthma, uncomplicated; K58.9 Irritable bowel syndrome, unspecified; G47.30 Sleep apnea, unspecified; F90.9 Attention-deficit hyperactivity disorder, unspecified type; F42.9 Obsessive-compulsive disorder, unspecified; K21.9 Gastro-esophageal reflux disease without esophagitis; I10 Essential (primary) hypertension; E55.9 Vitamin D deficiency, unspecified; R10.11 Right upper quadrant pain; Z68.37 Body mass index [BMI] 37.0-37.9, adult; Z91.52 Personal history of nonsuicidal self-harm; Z81.8 Family history of other mental and behavioral disorders; Z79.899 Other long term (current) drug therapy; Z91.012 Allergy to eggs; Z56.0 Unemployment, unspecified

== ENCOUNTER 2023-08-13 20:59 | Emergency (ER) | payer MEDICAID, MEDICARE, OTHER ==
[~2023-08-13] VITALS: Ht 180.3 cm; Wt 118.2 kg
[~2023-08-13 20:59] MED LIST changes: +BUPR15TASR PO; +OLAN5ZYD PO; +SERT50TA29 PO; +TRAZ1TAB14 PO
[2023-08-13 21:08] VITALS: BP 147/90; TEMP 98.6; O2SAT 96
== END 2023-08-14 01:20 | disposition left against medical advice (07) ==
LOC: EDBD 20:59 → M ED 20:59
DX: Z53.21 Procedure and treatment not carried out due to patient leaving prior to being seen by health care provider (principal)

== ENCOUNTER → 2023-08-21 | Outpatient (CLI) | payer MEDICARE, MEDICAID | LOC: M SLEEP 20:00 | PROVIDERS: ATTEND Nurse Practitioner Adult Health | DX: G47.33 Obstructive sleep apnea (adult) (pediatric) (principal) ==

== ENCOUNTER 2024-02-22 18:11 | Emergency (ER) | payer MEDICARE, MEDICAID ==
[~2024-02-22] VITALS: Ht 180.3 cm; Wt 132.0 kg
[~2024-02-22 18:11] MED LIST changes: +DOXY-440 PO; -DOXY-444 PO; +ONDA-282 PO; -ONDA4TAB6 PO
[2024-02-22] MEDS ORDERED: FLUO-365 (18:28)
[2024-02-22 19:26] LABS: BASO # 0.1 10^3/uL (0.0-0.2); BASO % 0.4 % (0.0-1.0); EOS # 0.1 10^3/uL (0.0-0.5); EOS % 0.5 % (0.0-3.0); HEMATOCRIT 47.5 % (42.0-52.0); HEMOGLOBIN 15.5 g/dl (13.5-17.5); LYMPH # 4.4 10^3/uL (1.5-5.0); LYMPH % 24.6 % (24.0-44.0); MEAN CORPUSCULAR HEMOGLOBIN 25.9 pg (27.0-33.0); MEAN CORPUSCULAR HGB CONC 32.6 g/dl (32.0-36.5); MEAN CORPUSCULAR VOLUME 79.3 fl (80.0-96.0); MONO # 1.2 10^3/uL (0.0-0.8); MONO % 6.7 % (2.0-8.0); NEUTROPHILS % 67.4 % (36.0-66.0); PLATELET COUNT, AUTOMATED 382 10^3/uL (150-450); RED BLOOD COUNT 5.99 10^6/uL (4.30-6.10); WHITE BLOOD COUNT 17.8 10^3/uL (4.0-10.0)
[2024-02-22 19:51] LABS: LIPASE 33 U/L (12-53)
[2024-02-22 19:58] LABS: ALBUMIN 4.1 G/DL (3.2-5.2); ALKALINE PHOSPHATASE 75 U/L (46-116); ALT/SGPT 56 U/L (7.0-40); AST/SGOT 20 U/L (<34); BILIRUBIN,DIRECT < 0.1 MG/DL (<0.4); BILIRUBIN,TOTAL 0.2 MG/DL (0.3-1.2); BLOOD UREA NITROGEN 16 MG/DL (9-23); CALCIUM LEVEL 10.1 MG/DL (8.5-10.1); CARBON DIOXIDE LEVEL 23 MMOL/L (20-31); CHLORIDE LEVEL 108 MMOL/L (98-107); CREATININE FOR GFR 0.76 MG/DL (0.70-1.30); GLOMERULAR FILTRATION RATE > 60.0 (>60); GLUCOSE, FASTING 100 MG/DL (60-100); POTASSIUM SERUM 4.3 MMOL/L (3.5-5.1); SODIUM LEVEL 139 MMOL/L (136-145); TOTAL PROTEIN 8.1 G/DL (5.7-8.2)
[2024-02-22 20:06] LABS: INR 1.02; PARTIAL THROMBOPLASTIN TIME 29.9 SECONDS (24.8-34.2); PROTHROMBIN TIME 13.1 SECONDS (12.5-14.5)
[2024-02-22 21:48] VITALS: TEMP 96.9
[2024-02-23 06:00] VITALS: BP 140/75; O2SAT 97
[2024-02-23] MEDS ORDERED: LEVS0.124 SL (06:33)
== END 2024-02-23 06:41 | disposition home or self-care (01) ==
LOC: M ED 18:11
DX: K80.50 Calculus of bile duct without cholangitis or cholecystitis without obstruction (principal); F41.9 Anxiety disorder, unspecified; K76.0 Fatty (change of) liver, not elsewhere classified; F84.0 Autistic disorder; Z91.09 Other allergy status, other than to drugs and biological substances; Z91.012 Allergy to eggs; Z79.51 Long term (current) use of inhaled steroids; Z79.899 Other long term (current) drug therapy

== ENCOUNTER → 2024-02-26 | Outpatient (CLI) | payer MEDICARE, MEDICAID ==
[~2024-02-26] MED LIST changes: +FLUO-365; +LEVS0.124 SL
[2024-02-26 15:14] LABS: BASO % 0.3 % (0.0-1.0); EOS # 0.1 10^3/uL (0.0-0.5); EOS % 1.1 % (0.0-3.0); HEMATOCRIT 45.3 % (42.0-52.0); HEMOGLOBIN 14.6 g/dl (13.5-17.5); LYMPH # 3.5 10^3/uL (1.5-5.0); LYMPH % 27.8 % (24.0-44.0); MEAN CORPUSCULAR HEMOGLOBIN 25.8 pg (27.0-33.0); MEAN CORPUSCULAR HGB CONC 32.2 g/dl (32.0-36.5); MONO # 0.7 10^3/uL (0.0-0.8); MONO % 5.2 % (2.0-8.0); NEUTROPHILS # 8.1 10^3/uL (1.5-8.5); NEUTROPHILS % 65.1 % (36.0-66.0); PLATELET COUNT, AUTOMATED 346 10^3/uL (150-450); RED BLOOD COUNT 5.66 10^6/uL (4.30-6.10); WHITE BLOOD COUNT 12.5 10^3/uL (4.0-10.0)
[2024-02-26 15:34] LABS: ALBUMIN 3.5 G/DL (3.2-5.2); ALKALINE PHOSPHATASE 71 U/L (46-116); ALT/SGPT 56 U/L (7.0-40); AST/SGOT 24 U/L (<34); BILIRUBIN,TOTAL 0.3 MG/DL (0.3-1.2); BLOOD UREA NITROGEN 10 MG/DL (9-23); CALCIUM LEVEL 9.9 MG/DL (8.5-10.1); CARBON DIOXIDE LEVEL 25 MMOL/L (20-31); CHLORIDE LEVEL 107 MMOL/L (98-107); CREATININE FOR GFR 0.69 MG/DL (0.70-1.30); GLOMERULAR FILTRATION RATE > 60.0 (>60); GLUCOSE, FASTING 134 MG/DL (60-100); POTASSIUM SERUM 3.9 MMOL/L (3.5-5.1); SODIUM LEVEL 140 MMOL/L (136-145); TOTAL PROTEIN 7.3 G/DL (5.7-8.2)
== END ==
LOC: M LAB 14:26
PROVIDERS: ATTEND Nurse Practitioner
DX: D72.829 Elevated white blood cell count, unspecified (principal)

== ENCOUNTER → 2024-06-06 | Outpatient (CLI) | payer MEDICARE, MEDICAID ==
[~2024-06-06] MED LIST changes: +OLAN1TAB70
== END ==
LOC: M RAD 06:11
PROVIDERS: ATTEND Surgery
DX: R10.11 Right upper quadrant pain (principal)

== ENCOUNTER → 2024-09-01 | Outpatient (CLI) | payer MEDICARE, MEDICAID ==
[2024-09-04 16:46] LABS: ALPHA 2-MACROGLOBULINS,QN 287 mg/dL (106-279); ALT (SGPT) P5P 31 U/L (9-46); APOLIPOPROTEIN A-1 137 mg/dL (94-176); BILIRUBIN, TOTAL 0.4 mg/dL (0.2-1.2); FIBROSIS SCORE 0.13; FIBROSIS STAGE NO FIBROSIS (F0); GGT 24 U/L (3-70); HAPTOGLOBIN 311 mg/dL (43-212); NECROINFLAM ACT GRADE NO ACTIVITY (A0); NECROINFLAM ACT SCORE 0.12
== END ==
LOC: M PLALAB 10:55
PROVIDERS: ATTEND Physician Assistant
DX: K76.0 Fatty (change of) liver, not elsewhere classified (principal); R19.7 Diarrhea, unspecified; R94.5 Abnormal results of liver function studies; R12 Heartburn; R10.30 Lower abdominal pain, unspecified

== ENCOUNTER 2024-12-26 14:43 | Emergency (ER) | payer MEDICARE, MEDICAID ==
[~2024-12-26] VITALS: Ht 180.3 cm; Wt 132.0 kg
[2024-12-26 14:47] VITALS: BP 135/81; TEMP 97; O2SAT 98
== END 2024-12-26 16:15 | disposition left against medical advice (07) ==
LOC: M ED 14:43
DX: Z53.21 Procedure and treatment not carried out due to patient leaving prior to being seen by health care provider (principal)

== ENCOUNTER → 2025-01-28 | Outpatient (CLI) | payer MEDICARE, MEDICAID ==
[~2025-01-28] MED LIST changes: -IBUP-1022 PO; +IBUP600T42 PO
[2025-01-28 14:05] LABS: APPEARANCE, URINE CLEAR (CLEAR); BACTERIA, URINE AUTO NEGATIVE (NEGATIVE); BILIRUBIN, URINE AUTO NEGATIVE (NEGATIVE); BLOOD, URINE BLOOD NEGATIVE (NEGATIVE); GLUCOSE, URINE (UA) AUTO NEGATIVE (NEGATIVE); KETONE, URINE AUTO NEGATIVE (NEGATIVE); LEUKOCYTE ESTERASE, URINE AUTO NEGATIVE (NEGATIVE); MUCUS, URINE SMALL (NEGATIVE); NITRITE, URINE AUTO NEGATIVE (NEGATIVE); PROTEIN, URINE AUTO NEGATIVE (NEGATIVE); RBC, URINE AUTO 1 /HPF (0-3); SPECIFIC GRAVITY URINE AUTO 1.020 (1.002-1.035); SQUAMOUS EPITHELIAL CELL UR AU 0 /HPF (0-6); UROBILINOGEN, URINE AUTO 0.2 mg/dL (0.0-2.0); WBC, URINE AUTO 1 /HPF (0-3)
[2025-01-28 14:21] LABS: BASO # 0.0 10^3/uL (0.0-0.2); BASO % 0.4 % (0.0-1.0); EOS # 0.2 10^3/uL (0.0-0.5); EOS % 1.4 % (0.0-3.0); LYMPH # 3.0 10^3/uL (1.5-5.0); LYMPH % 26.9 % (24.0-44.0); MONO # 0.8 10^3/uL (0.0-0.8); MONO % 6.8 % (2.0-8.0); NEUTROPHILS # 7.3 10^3/uL (1.5-8.5); NEUTROPHILS % 64.1 % (36.0-66.0); PLATELET COUNT, AUTOMATED 351 10^3/uL (150-450)
[2025-01-28 14:25] LABS: ALT/SGPT 44 U/L (7.0-40); AST/SGOT 21 U/L (<34); CALCIUM LEVEL 9.4 MG/DL (8.5-10.1); CARBON DIOXIDE LEVEL 26 MMOL/L (20-31); CHLORIDE LEVEL 105 MMOL/L (98-107); CHOLESTEROL LEVEL 155 MG/DL (<200); CHOLESTEROL RISK RATIO 3.42 (<5); CREATININE FOR GFR 0.84 MG/DL (0.70-1.30); GLOMERULAR FILTRATION RATE > 90.0 (>60); LDL CHOLESTEROL 87.2 MG/DL (<100); NON-HDL-C 109.8 MG/DL; POTASSIUM SERUM 4.0 MMOL/L (3.5-5.1); SODIUM LEVEL 139 MMOL/L (136-145); TRIGLYCERIDES LEVEL 113 MG/DL (<150)
[2025-01-28 14:28] LABS: FREE T4 1.35 NG/DL (0.89-1.76)
[2025-01-28 15:56] LABS: ESTIMATED AVERAGE GLUCOSE 111.0 MG/DL (60-110)
== END ==
LOC: M PLALAB 09:51
PROVIDERS: ATTEND Family Medicine
DX: R10.2 Pelvic and perineal pain (principal); E66.9 Obesity, unspecified; I10 Essential (primary) hypertension; R73.9 Hyperglycemia, unspecified